=== PATIENT | female | born 1950 | race Caucasian/White ===

== ENCOUNTER 2024-09-16 03:06 | Inpatient (IN) ==
[2024-09-16] MEDS ORDERED: GLUCOSE 10 TAB/TUBE PO PRN (05:13)
[2024-09-16] MEDS ORDERED: DEXTROSE 50% 50 ML SYRINGE IV PRN (05:13)
[2024-09-16] MEDS ORDERED: PROMETHAZINE 6.25 MG/50.25 ML BAG IV PRN (05:13)
[2024-09-16] MEDS ORDERED: GLUCOSE 40% GEL 15 GM TUBE PO PRN (05:13)
[2024-09-16] MEDS ORDERED: GLUCAGON FOR INJ 1 MG VIAL SQ PRN (05:13)
[2024-09-16] MEDS ORDERED: CARBOHYDRATES FOR HYPOGLYCEMIA PO PRN (05:13)
[2024-09-16] MEDS ORDERED: Patient's ALLERGY Info needs ENTERED STA (05:14)
[2024-09-16] MEDS: INSULIN ASPART PER UNIT CHARGE SC SCH (06:26)
[2024-09-16] MEDS ORDERED: PANTOPRAZOLE BOLUS/DRIP IV STA (06:43)
--- NOTE | 2024-09-16 07:11 | History & Physical Report ---
Date of Service September 16, 2024 Assessment & Plan (1) Severe sepsis: Plan: SIRS plus ARF on CKD plus lactic acidosis Possible sources: Community-acquired pneumonia Complicated UTI UGIB History GERD New onset anemia secondary to above AMS secondary to illness, episodic lethargy during exam hypertension, BP stable hyperlipidemia, on statin Rx DM2 on oral medications, well-controlled as of recent hemoglobin A1c of 7 last May 2024 hypothyroidism, euthyroid as of recent outpatient TSH GERD, mood disorder. Medical telemetry Follow cultures obtained from [facility] ER Cefepime for complicated UTI, CAP; Doxycycline for atypical coverage Check venous blood gas, repeat PRP and lactic acid levels Nephrology consult Re: ARF on CKD IV PPI, GI consult for UGIB N.p.o. in anticipation of endoscopy Anemia workup, follow H&H, transfuse PRBC if hemoglobin less than 7 and or for symptomatic anemia CT head headache, AMS CT soft tissue neck RE sore throat CT abdomen pelvis re: abdominal pain, GI bleed, kidney dysfunction ISS BG goal 1 10-1 40 DVT prophylaxis. SCDs re: GI bleed Full code Text document was generated using Gyst voice recognition software. It may contain grammatical or spelling errors. Kindly contact undersigned for clarification of any documentation item in question. ADDENDUM : (7:15 AM) vbg pH less than 7, pCO2 17 ICU transfer for severe metabolic acidosis Bicarb drip as per mobile sales assistant (Dr. Faulkner's) recommendations. Admission and Anticipated Discharge Date Admission Date: September 16, 2024 History of Present Illness Chief Complaint: Renal failure Primary Care Provider: Dr. Meyer History obtained from patient and records. Medical history significant for hypertension, hyperlipidemia, DM2 on oral medications, hypothyroidism, CRI (baseline creatinine 1.3), GERD, mood disorder. Patient not feeling well for about a week. Junky cough symptoms productive of yellow sputum. Patient denies chest pain. Sore throat with headache symptoms. Denies aspiration. was sick as well. Poor appetite later followed by watery diarrhea. Subsequent achy abdominal pain with coffee-ground emesis and melena noted yesterday. Denies inordinate Patient seen at [facility] ER yesterday. Abnormal labs noted: WBC, 19, hemoglobin noted to be 10, serum creatinine 9.5, potassium 5.2, anion gap 39, lactic acid 8 COVID and flu swabs were negative. Chest x-ray showed left lung patchy opacification. UA WBC esterase positive, nitrate negative Blood cultures obtained. Patient given ceftriaxone at the ER for possible pneumonia/UTI as per ED provider.. Patient also received Lokelma for hyperkalemia. Repeat serum creatinine after multiple fluid boluses was 8.8 as per ED provider. Patient transferred to [facility] for Nephrology services. Medical History as above Surgical History : Knee surgery, shoulder surgery, BTL Family History : Heart disease, DM Personal/Social history : non-smoker, occasional EtOH intake Allergies Allergy/AdvReac Type Severity Reaction Status Date / Time Sulfa (Sulfonamide Allergy Unknown Unknown Verified 09/16/24 05:57 Antibiotics) Home Medications Medication Instructions Recorded Confirmed Type atorvastatin 20 mg tablet 20 mg DAILY 09/16/24 09/16/24 History hydrochlorothiazide 12.5 mg tablet 12.5 mg DAILY 09/16/24 09/16/24 History metformin 1,000 mg tablet 1,000 mg DAILY 09/16/24 09/16/24 History paroxetine HCl 10 mg tablet 10 mg PO DAILY 09/16/24 09/16/24 History pregabalin 100 mg capsule 100 mg AMHS 09/16/24 09/16/24 History venlafaxine 150 mg 150 mg PO DAILY 09/16/24 09/16/24 History capsule,extended release 24 hr Past Med/Surg History Problem List (Updated 09/16/24 @ 08:23 by Vj Celis MD) Severe sepsis Sepsis Ulnar neuropathy at elbow of right upper extremity Carpal tunnel syndrome on both sides Social History Smoking Status: Never smoker Second Hand Exposure: No; Do You Dip or Chew Tobacco: No; Hx Alcohol Use: No Hx Substance Use: No Beliefs That Will Affect Care: None Current Living Situation: Spouse Other Information That Helps Us Care for You: No Feels Safe at Home: Yes Safety Concerns: Feels Safe At This Time Assistive Devices: Other Assistive Devices Comment: reading glasses Review of Systems Review of Systems: As per HPI, all other systems reviewed and negative Physical Exam Physical Exam: GENERAL: Ill-appearing, lethargic, mild dysarthria, no respiratory distress SKIN: Pallor, cool HEENT: Pale palpebral conjunctivae, no ptosis, dry buccal mucosa NECK : Supple, no tenderness CHEST : Decreased breath sounds, no tenderness HEART : RRR, no obvious murmurs ABDOMEN: Some distention, minimal central abdominal tenderness EXTREMITIES : No LE swelling/tenderness, no other conspicuous deformities noted NEUROLOGIC : Lethargic, no facial asymmetry, mild dysarthria, gait and stance not assessed Results & Data Results & Data Vital Signs (Past 12 Hours) Vital Signs Temp Resp BP Pulse Ox O2 Del Method 34.3 C L 22 138/69 97 Room Air 09/16/24 05:37 09/16/24 05:37 09/16/24 05:37 09/16/24 05:37 09/16/24 05:37 Laboratory Results Laboratory Results POC Glucose 173 mg/dl (70-99) H 09/16/24 06:08 Diagnostic Findings [facility] ER 09/15, 1044 PM WBC 19.38, hemoglobin 10, hematocrit 33, platelets 540 Serum sodium 137, potassium 5.2, chloride 92, CO2 8.9, BUN 63, creatinine 9.57, glucose 96, anion gap 39.3, lactic acid 8 09/16, 1:46 AM Serum sodium 139, potassium 5.5, chloride 100, CO2 6.2, BUN 62, creatinine 8.89, anion gap 38.3, lactic acid 6.9
[2024-09-16] MEDS: SODIUM CHLORIDE 0.9% 1,000 ML IV ONE (07:16)
[2024-09-16] MEDS: PANTOprazole 80 MG in DEXTROSE 5% 100 ML IV ONE (07:17)
[2024-09-16 07:24] LABS: Oxygen Saturation VBG 72.5 %; PCO2 VBG 17 mmHg (38-50); PO2 VBG 52 mmHg; pH VBG < 7.00 (7.36-7.41)
--- NOTE | 2024-09-16 07:25 | Nephrology Consultation ---
Date of Consultation September 16, 2024 Assessment & Plan (1) Lactic acidosis: life threatening anion gap metabolic acidosis tachypneic as she tries to compensate and at risk for tiring out/potential intubation critical lactic acidosis w/ anion gap 32 and bicarbonate 3, pH <7, and lactate 6.8 on presentation; minimal improvement with IV fluids and quite tachypneic x hours and now hypoxic -urgent dialysis needed; risks/benefits/alternatives reviewed w/ pt and consent obtained >> plan 3 hr tx on lowest available bic, 2K bath w/ no UF >>will not be able to undergo any proposed urology procedure until this is optimized -may well need repeat dialysis treatment tomorrow > will follow Care coordinated multiple times today with Dr Celis, Dr Brooks, Dr Burton. I spent 25 minutes updating the family > explaining patient's current clinical status including acidemia, severe sepsis, stone. Critical care time 100 minutes from [id number]. (2) Acute renal failure: Stage 3 nonoliguric CARMEN multifactorial in the setting of obstructive uropathy, complicated UTI and possibly bacteremia, +/- metformin use -emergent dialysis as above -bmp daily for now -continue to avoid IV contrast as able (3) Severe sepsis: complicated UTI in setting of impacted R stone, possible bacteremia as well/ blood cultures pending; also possible community acquired pneumonia component -f/u pending cultures OSH -continue coverage w/ cefepime for UTI/CAP; doxy for atypicals -needs source control (4) Acute anemia: hgb 10 at OSH on 09/15; 8.8 here on arrival 09/16 and 8.4 later this am. -recheck later; dilution may have a role, though other cell lines not much changed (5) Stone in renal pelvis: urology consultation recommended; nothing to do until acidemia improved (6) CKD (chronic kidney disease) stage 3, GFR 30-59 ml/min: underlying CKD3A, possibly progressive >> baseline creatinine had been 1 x years (GFR 58) as of 07/2023 but was 1.3 (GFR 46) April 2024; historically nonalbuminuric. -will call her baseline creatinine 1.3; monitor for recovery History of Present Illness Reason for Consultation: CARMEN on ? CKD Requesting Physician: Dr Schaefer, Dr Celis Attending Physician: Dai Schaefer MD History of Present Illness 73 y/o F whom I'm asked to see for CARMEN on ? CKD was transferred here this AM from [facility] for nephrology care. PMH includes DM on metformin, HTN, hypothyroid (by report but on no meds), HL, depression. Also w/ CKD3A, ? progressive >> baseline creatinine had been 1 x years (GFR 58) as of 07/2023 but was 1.3 (GFR 46) April 2024; historically nonalbuminuric. Has had knee and shoulder surgery as well as BL tubal ligation. She presented to OSH on 09/15 2300 w/ "bile black" emesis that had started 09/14; she endorsed 10 days of sore throat, cough and diarrhea prior to presentation; she and her both had flu like symptoms around election day. CXR notable for BL hilar vascular congestion, patchy L mid lung opacity and suspected small L sided pleural effusion. Her presenting creatinine was 9.6, BUN 63, K 5.2, C02 6 (sic), AG 39. Lactic acid was 8; transaminases wnl. WBC 19K, hgb 10; plts 540. UA remarkable for turbid urine 1010 sa w/ moderate blood, 15 ketones, large LE, 1900 (sic) WBC, many bacteria. Blood and urine cultures were obtained; swabs for influenza and COVID19 were negative. She had a dose of ceftriaxone, lokelma and at least 1 L NS. Transfer was arranged here for mgt of lactic acidosis, severe renal failure, uti, ? community acquired pneumonia. On arrival here, her temp was 33.9 rectal, TSH wnl, pH on VBG under 7/ too low to calculate. lactate 6.8; CK 71. WBC were up to 40K w/ ANC of 34 and large number of immature granulocytes w/ toxic vacuolization; hgb to 8.4, plts 561. I reviewed her care w/ Dr Celis who had already arranged ICU admission. I suggested 2 hours of a bicarb gtt and then repeat labs which showed bicarb up to 4, pH now at 7.0, K 5.5, creat 8.9. She has made at least 300 mL urine since arrival here. No chest pain or palpitations; no abdominal pain; no further n/v; no wheeze or current cough; she is tachypneic but not particularly short of breath. Tells me she's "a little" tired. No rash, no WEAVER, no F, no neck stiffness. no dark tarry stools. Imaging was obtained after I saw her and is as below. Her and daughter came in to the ICU as I was completing this consultation > I reviewed her status with them and got a bit more history >> no metformin since 09/05; no NSAID use. Allergies Allergy/AdvReac Type Severity Reaction Status Date / Time Sulfa (Sulfonamide Allergy Unknown Unknown Verified 09/16/24 05:57 Antibiotics) Home Medications Medication Instructions Recorded Confirmed Type atorvastatin 20 mg tablet 20 mg DAILY 09/16/24 09/16/24 History hydrochlorothiazide 12.5 mg tablet 12.5 mg DAILY 09/16/24 09/16/24 History metformin 1,000 mg tablet 1,000 mg DAILY 09/16/24 09/16/24 History paroxetine HCl 10 mg tablet 10 mg PO DAILY 09/16/24 09/16/24 History pregabalin 100 mg capsule 100 mg AMHS 09/16/24 09/16/24 History venlafaxine 150 mg 150 mg PO DAILY 09/16/24 09/16/24 History capsule,extended release 24 hr Patient History Medical History (Updated 09/16/24 @ 14:15 by Janett Faulkner MD, PhD) Hypothyroidism HTN (hypertension) Diabetes Family History (Updated 09/16/24 @ 13:46 by Janett Faulkner MD, PhD) Other Diabetes Heart disease Social History Smoking Status: Never smoker Second Hand Exposure: No; Do You Dip or Chew Tobacco: No; Hx Alcohol Use: No Hx Substance Use: No Beliefs That Will Affect Care: None Current Living Situation: Spouse Other Information That Helps Us Care for You: No Feels Safe at Home: Yes Safety Concerns: Feels Safe At This Time Assistive Devices: Other Assistive Devices Comment: reading glasses Review of Systems 2 Review of Systems: All systems reviewed & are unremarkable except as noted in HPI & below Physical Exam 2 Constitutional: well developed, well nourished, + acute distress (mild d/t breathing), + ill appearing, average body habitus, + altered mental status (slight) and cooperative Eyes: EOM intact bilaterally ENMT: Mouth: + dry oral mucous membranes Neck: no nuchal rigidity Respiratory: + respiratory distress, + labored breath ing and + tachypneic; no cough, + not able to speak in complete sentence, expiratory phase not prolonged and no audible wheezes Auscultation: + diminished lung sounds and + crackles (bibasilar) Cardiovascular: Rate/Rhythm: regular rhythm and + tachycardic (low 100s) E xtremities: no edema Gastrointestinal (Abdomen): Inspection/Auscultation: normal bowel sounds P ercussion/Palpation: abdomen soft; abdomen nontender Musculoskeletal: Extremities: strength 5/5 throughout Skin: no rashes, warm and dry (bone dry) Neurologic: cheney but with effort, limited but appropriate speech > hard to understand at times ? d/t very dry mouth, generalized weakness Psychiatric: Orientation: oriented to person, oriented to place and cooperative Results & Data Vital Signs (Past 12 Hours) Vital Signs Temp Pulse Resp BP Pulse Ox O2 Del Method 09/16/24 07:15 33.9 C L 09/16/24 05:47 34.3 C L 91 H 22 138/69 97 Room Air 09/16/24 05:37 34.3 C L 22 138/69 97 Room Air Laboratory Results 09/16/24 11:42 09/16/24 11:[address] a/p (images personally reviewed; agree w/ report) -moderate R hydronephrosis w/ obstructing 1.8 cm calculus of the ureteropelvic junction -small BL pleural effusions R > L w/ bibasilar mucous plugging, intralobular septal thickening and patchy groundglass and consolidative opacities suggestive of PNA versus aspiriation -hepatic steatosis and small hiatal hernia CXR (images personally reviewed; agree w/ report) -pulmonary vascular congestion R>L, trace pleural effusions Head/neck-soft tissue CT w/o acute process
[2024-09-16] MEDS: IPRATROPIUM BROMIDE NEB SOLN 0.02% 0.5MG/2.5ML VIAL INH STA (07:29)
[2024-09-16] MEDS: LEVALBUTEROL 1.25 MG/3 ML NEB NEB STA (07:29)
[2024-09-16 07:39] LABS: BUN Creatinine Ratio 7.5 (10-20); Calcium 7.6 mg/dl (8.6-10.3); Creatinine Clr Calc Pharmacy 5.8 ml/min; Potassium 5.8 mmol/L (3.5-5.1)
--- NOTE | 2024-09-16 07:42 | Critical Care Consultation ---
Date of Consultation September 16, 2024 Assessment & Plan (1) Severe sepsis: (2) Acute renal failure: (3) Depression: (4) Diabetes: (5) HTN (hypertension): (6) Hypothyroidism: (7) Lactic acidosis: (8) Acute anemia: (9) Stone in renal pelvis: (10) CKD (chronic kidney disease) stage 3, GFR 30-59 ml/min: Plan Reason critically ill: direct admit with acute on chronic renal failure with severe metabolic acidosis requiring emergent hemodialysis. Neuro: Fluctuation in mental status, CT head negative. Cardiac: - Shock, likely septic with hemodynamic instability, currently requiring pressors - continue Levophed drip to maintain MAP>65, also started Albumin 5% x250mL Resp: - Persistent tachypnea since admission, likely respiratory compensation to offset metabolic acidosis - risk for respiratory fatigue and subsequent need for intubation. Monitor respiratory status, support as needed, hopeful that this will improve with dialysis. GI: - NPO due to persistent tachypnea - ?upper GI bleed - GI consulted, intervention deferred for time being, consider EGD at later date Renal: - Acute on chronic renal failure: severe metabolic acidosis w/ anion gap 32 and bicarbonate 3, pH <7, and lactate 6.8 on presentation, minimal change with IV fluids + bicarb - Nephrology consulted, emergent dialysis performed today - continue bicarb drip - Recheck AM labs - Avoid nephrotoxic agents : - UA from outside hospital consistent with UTI - follow outside hospital cultures - CT A/P with right sided hydronephrosis secondary to stone at [facility] - urology consulted for when metabolic abnormalities better managed - Follow I/[facility] Endo: - Home metformin held - BG checks ACHS, sliding scale insulin Heme: - Hemoglobin with slight downtrend, continue to monitor particularly due to concern for possible GI bleed ID: Severe sepsis - urinary vs respiratory source - continue coverage for both with Cefepime + Doxy, follow outside hospital cultures. Lines/Access: peripheral IV, temporary dialysis catheter DVT ppx: chemical prophylaxis deferred d/t concern for possible GI bleed Supervising Physician Co-Signing Physician Notes Dr. Blackman was resident physician during care of patient. I separately evaluated patient for cunha portions of the history and the exam. I was present during the critical portion of medical decision making, and I discussed the case with the resident. I generally agree with the findings and plan. Patient with metabolic acidosis and acute kidney injury presumptively on chronic kidney disease. Patient consented for temporary hemodialysis catheter as well as blood should be required. Placed temporary HD catheter, hemodynamically reassuring, waiting nephrology evaluation I have personally spent 50 minutes of critical care time in the direct management of this patient. This is a life/limb threatening event. This includes time spent evaluating patient, direct bedside care, chart review, placing orders, interpretation of diagnostic studies, discussion with consultants, patient, and/or family members regarding treatment decisions, as well as other required patient management activities. This time is exclusive of all separately billable procedures, and teaching time and separate from and in addition to any other critical care service time. History of Present Illness Attending Physician: Dai Schaefer MD History of Present Illness 73 year old female with PMHx significant for HTN, depression, hypothyroidism, diabetes presented as a direct admit due to acute renal failure. Patient presented to outside hospital due to 1 week history of diarrhea, one day of vomiting with concern for hematemesis. Notes associated weakness, denies chest pain, fever/chills. Allergies Allergy/AdvReac Type Severity Reaction Status Date / Time Sulfa (Sulfonamide Allergy Unknown Unknown Verified 09/16/24 05:57 Antibiotics) Home Medications Medication Instructions Recorded Confirmed Type atorvastatin 20 mg tablet 20 mg DAILY 09/16/24 09/16/24 History hydrochlorothiazide 12.5 mg tablet 12.5 mg DAILY 09/16/24 09/16/24 History metformin 1,000 mg tablet 1,000 mg DAILY 09/16/24 09/16/24 History paroxetine HCl 10 mg tablet 10 mg PO DAILY 09/16/24 09/16/24 History pregabalin 100 mg capsule 100 mg AMHS 09/16/24 09/16/24 History venlafaxine 150 mg 150 mg PO DAILY 09/16/24 09/16/24 History capsule,extended release 24 hr Patient History Medical History Hypothyroidism HTN (hypertension) Diabetes Family History Other Diabetes Heart disease Social History Smoking Status: Never smoker Second Hand Exposure: No; Do You Dip or Chew Tobacco: No; Hx Alcohol Use: No Hx Substance Use: No Beliefs That Will Affect Care: None Current Living Situation: Spouse Other Information That Helps Us Care for You: No Feels Safe at Home: Yes Safety Concerns: Feels Safe At This Time Assistive Devices: Other Assistive Devices Comment: reading glasses Review of Systems Review of Systems: as per HPI Physical Exam Constitutional: cooperative and + lethargic Respiratory: normal respiratory effort and + tachypneic Skin: no rashes, warm and dry Neurologic: awake and + confused (intermittently); no focal motor deficits Psychiatric: A+Ox3, euthymic affect Results & Data Results & Data Vital Signs (Past 12 Hours) Vital Signs Temp Pulse Resp BP Pulse Ox O2 Del Method 09/16/24 07:29 87 20 93 Room Air 09/16/24 07:15 33.9 C L 09/16/24 05:47 34.3 C L 91 H 22 138/69 97 Room Air 09/16/24 05:37 34.3 C L 22 138/69 97 Room Air Laboratory Results Abnormal lab results 09/16/24 09/16/24 Range/Units 06:08 06:49 WBC 40.43 H* (4.8-10.8) K/ul RBC 3.44 L (4.20-5.40) M/uL Hgb 8.8 L (12.0-16.0) g/dl Hct 31.9 L (37.0-47.0) % MCHC 27.6 L (32.0-36.0) g/dL RDW Std Deviation 59.0 H (36.4-46.3) fL RDW Coeff of [place] 17.4 H (11.5-14.5) % Plt Count 561 H (130-400) K/uL Reticulocyte % (Auto) 2.15 H (0.50-2.00) % Neut # (Auto) 34.08 H (1.40-6.50) K/uL [place] # (Auto) 1.28 H (0.11-0.59) K/uL Baso # (Auto) 0.24 H (0.00-0.20) K/uL Immature Gran # (Auto) 2.88 H (0.01-0.20) K/uL VBG pH < 7.00 L (7.36-7.41) VBG pCO2 17 L (38-50) mmHg Potassium 5.8 H (3.5-5.1) mmol/L Carbon Dioxide 3 L* (21-32) mmol/L Anion Gap 32 H (3-11) BUN 62 H (6-23) mg/dl Creatinine 8.31 H* (0.6-1.2) mg/dl BUN/Creatinine Ratio 7.5 L (10-20) Glucose 191 H (70-99(Fasting)) mg/dl POC Glucose 173 H (70-99) mg/dl Lactate 6.8 H* (0.4-2.0) mmol/L Calcium 7.6 L (8.6-10.3) mg/dl Iron 20 L (35-150) mcg/dl Resident Activity Tracking Resident Involvement: Resident Care Provided Care Provided: Adult Hospital Medicine
[2024-09-16 07:44] LABS: Hematocrit (blood only) 31.9 % (37.0-47.0); Hemoglobin 8.8 g/dl (12.0-16.0); Mean Corpuscular Hemoglobin 25.6 pg (25.0-34.0); Mean Corpuscular Hgb Conc 27.6 g/dL (32.0-36.0); Mean Corpuscular Volume 92.7 fL (80.0-100.0); Mean Platelet Volume 10.6 fL (9.4-12.4); Nucleated RBC # (auto) 0.02 K/uL (0.00-0.12); Platelet Count 561 K/uL (130-400); RDW Coefficient of Variation 17.4 % (11.5-14.5); Red Blood Count 3.44 M/uL (4.20-5.40); White Blood Count 40.43 K/ul (4.8-10.8)
[2024-09-16] MEDS: DOXYCYCLINE HYCLATE 100 MG in DEXTROSE 5% MINI-B 100 ML IV STA (07:51)
[2024-09-16] MEDS: PANTOprazole 40 MG in DEXTROSE 5% MINI-B 100 ML IV SCH (07:51)
[2024-09-16] MEDS: PARoxetine HCL 10 MG TAB PO SCH (07:52)
[2024-09-16] MEDS: ATORVASTATIN 20 MG TAB PO SCH (07:52)
[2024-09-16] MEDS: VENLAFAXINE HCL XR 37.5 MG CAPXR PO SCH (07:52)
[2024-09-16 07:55] LABS: Basophils # (auto) 0.24 K/uL (0.00-0.20); Basophils % (auto) 0.6 %; Eosinophils # (auto) 0.04 K/uL (0.00-0.50); Eosinophils % (auto) 0.1 %; Immature Granulocytes # (auto) 2.88 K/uL (0.01-0.20); Immature Granulocytes % (auto) 7.1 %; Lymphocytes # (auto) 1.91 K/uL (1.20-3.40); Lymphocytes % (auto) 4.7 %; Monocytes # (auto) 1.28 K/uL (0.11-0.59); Monocytes % (auto) 3.2 %; Neutrophils # (auto) 34.08 K/uL (1.40-6.50); Neutrophils % (auto) 84.3 %; Polychromasia 1+; Reticulocyte % 2.15 % (0.50-2.00); Toxic Vacuolation 1+
--- NOTE | 2024-09-16 07:59 | Communication Note ---
Date of Service: September 16, 2024 Case discussed w/ Dr Celis and EHR reviewed as well. I am covering another hospital and have not examined the patient yet but will do so this AM. May well need urgent dialysis but would give short trial of supportive measures. Suggest D5W w/ 150 mEq sodium bicarbonate at as aggressive a rate as pt will tolerate x 2 hrs then repeat BMP and blood gas and lactate. Critical care following as well; peoplesoft hcm consultant updated.
[2024-09-16 08:05] LABS: Folate (Folic Acid),Ser orPlas > 22.30 ng/ml (>5.38)
[2024-09-16] MEDS ORDERED: STAT IV/IM STA (08:05)
[2024-09-16 08:06] LABS: Vitamin B12 614 pg/ml (180-914)
[2024-09-16 08:09] LABS: Ferritin 123.7 ng/ml (8-388); Thyroid Stimulating Hormone 0.807 uIu/ml (0.300-4.500)
[2024-09-16] MEDS: CALCIUM GLUCONATE 1,000 MG/60 ML BAG IV STA (08:50)
[2024-09-16] MEDS: SODIUM BICARB 8.4% INJ 50 MEQ/50 ML SYR IV ONE ×2 (08:50→13:02)
[2024-09-16] MEDS: SODIUM BICARBONATE 8.4% 150 MEQ in DEXTROSE 5% 1,000 ML IV SCH (08:50)
--- NOTE | 2024-09-16 08:59 | Communication Note ---
Date of Service: September 16, 2024 patient was seen later in the day in the ICU Patient awake and knew she was at [facility] Was having dialysis with nursing at bedside. Appreciate recs of Jailor service, nephrology and Urology. For full plan of care, please see the History and Physical from the same date of service.
[2024-09-16] MEDS: CEFEPIME 1000MG 1,000 MG/10 ML SYR IV ONE (09:52)
--- NOTE | 2024-09-16 09:54 | Gastrointestinal Consultation ---
Date of Consultation September 16, 2024 Assessment & Plan (1) Hematemesis: She has had hematemesis that fortunately has stopped. She has not manifested melena yet. She could have bled from any of a number of causes all of which are the routine UGI causes for bleedimg--ulcer disease, esophagitis, gastritis, AVM's malignancy etc. I do think she needs EGD at some point but not with her current medical condition. I will follow her and step in for EGD when it is felt appropriate either due to her current condition or when she improves enough that endoscopy won't harm her. History of Present Illness Reason for Consultation: gi bleed Attending Physician: Dai Schaefer MD History of Present Illness 73 year old female who says that she has been feeling weak. Yesterday she was really ill and during that time she vomited a few times and it was "coffee ground" looking fluid. She has not had abdominal pain prior to getting here to the hospital. She denies NSAID usage. She says she does not take blood thinners. She reports no black stools since she vomited but reports having had a bowel movement just not sure where. She has never had an EGD but she has had colonoscopy in the remote past. She currently has a WBC of 40K and creatinine of 8.3 with a metabolic acidosis. Allergies Allergy/AdvReac Type Severity Reaction Status Date / Time Sulfa (Sulfonamide Allergy Unknown Unknown Verified 09/16/24 05:57 Antibiotics) Home Medications Medication Instructions Recorded Confirmed Type atorvastatin 20 mg tablet 20 mg DAILY 09/16/24 09/16/24 History hydrochlorothiazide 12.5 mg tablet 12.5 mg DAILY 09/16/24 09/16/24 History metformin 1,000 mg tablet 1,000 mg DAILY 09/16/24 09/16/24 History paroxetine HCl 10 mg tablet 10 mg PO DAILY 09/16/24 09/16/24 History pregabalin 100 mg capsule 100 mg AMHS 09/16/24 09/16/24 History venlafaxine 150 mg 150 mg PO DAILY 09/16/24 09/16/24 History capsule,extended release 24 hr Patient History Social History Smoking Status: Never smoker Second Hand Exposure: No; Do You Dip or Chew Tobacco: No; Hx Alcohol Use: No Hx Substance Use: No Beliefs That Will Affect Care: None Current Living Situation: Spouse Other Information That Helps Us Care for You: No Feels Safe at Home: Yes Safety Concerns: Feels Safe At This Time Assistive Devices: Other Assistive Devices Comment: reading glasses Review of Systems Review of Systems: unable due to repiratory difficulty Physical Exam Constitutional: + ill appearing and average body habitus Neck: trachea midline, no thyromegaly Respiratory: normal respiratory effort, lungs clear to auscultation Cardiovascular: RRR, no murmur, no edema Gastrointestinal (Abdomen): normal bowel sounds, soft, nontender, no hepatosplenomegaly Results & Data Vital Signs (Past 12 Hours) Vital Signs Temp Pulse Resp BP Pulse Ox O2 Del Method 09/16/24 07:29 87 20 93 Room Air 09/16/24 07:15 33.9 C L 09/16/24 05:47 34.3 C L 91 H 22 138/69 97 Room Air 09/16/24 05:37 34.3 C L 22 138/69 97 Room Air Laboratory Results 09/16/24 09/16/24 09/16/24 Range/Units Unknown 07:35 06:49 WBC 40.43 H* (4.8-10.8) K/ul RBC 3.44 L (4.20-5.40) M/uL Hgb 8.8 L (12.0-16.0) g/dl Hct 31.9 L (37.0-47.0) % MCV 92.7 (80.0-100.0) fL MCH 25.6 (25.0-34.0) pg MCHC 27.6 L (32.0-36.0) g/dL RDW Std Deviation 59.0 H (36.4-46.3) fL RDW Coeff of [place] 17.4 H (11.5-14.5) % Plt Count 561 H (130-400) K/uL MPV 10.6 (9.4-12.4) fL Immature Gran % (Auto) 7.1 % Neut % (Auto) 84.3 % Lymph % (Auto) 4.7 % [place] % (Auto) 3.2 % Eos % (Auto) 0.1 % Baso % (Auto) 0.6 % Reticulocyte % (Auto) 2.15 H (0.50-2.00) % Neut # (Auto) 34.08 H (1.40-6.50) K/uL Lymph # (Auto) 1.91 (1.20-3.40) K/uL [place] # (Auto) 1.28 H (0.11-0.59) K/uL Eos # (Auto) 0.04 (0.00-0.50) K/uL Baso # (Auto) 0.24 H (0.00-0.20) K/uL Reticulocyte # 0.070 (0.020-0.100) 10^6/uL Immature Gran # (Auto) 2.88 H (0.01-0.20) K/uL Absolute Nucleated RBC 0.02 (0.00-0.12) K/uL Toxic Vacuolation 1+ Polychromasia 1+ VBG pH < 7.00 L (7.36-7.41) VBG pCO2 17 L (38-50) mmHg VBG pO2 52 mmHg VBG HCO3 TNP VBG O2 Saturation 72.5 % VBG Base Excess TNP Sodium 140 (136-145) mmol/L Potassium 5.8 H (3.5-5.1) mmol/L Chloride 105 (98-107) mmol/L Carbon Dioxide 3 L* (21-32) mmol/L Anion Gap 32 H (3-11) BUN 62 H (6-23) mg/dl Creatinine 8.31 H* (0.6-1.2) mg/dl Est Cr Clr Drug Dosing 5.8 ml/min eGFR 4.75 BUN/Creatinine Ratio 7.5 L (10-20) Glucose 191 H (70-99(Fasting)) mg/dl POC Glucose (70-99) mg/dl Lactate 6.8 H* (0.4-2.0) mmol/L Calcium 7.6 L (8.6-10.3) mg/dl Iron 20 L (35-150) mcg/dl Transferrin 216 (200-360) mg/dl Ferritin 123.7 (8-388) ng/ml Ammonia 72.0 (18-72) umol/L Total Creatine Kinase 65 (26-192) U/L Vitamin B12 614 (180-914) pg/ml Folate > 22.30 (>5.38) ng/ml TSH 0.807 (0.300-4.500) uIu/ml SARS-CoV-2 (PCR) NEGATIVE (Negative) Blood Type AB Positive Antibody Screen NEGATIVE 09/16/24 Range/Units 06:08 WBC (4.8-10.8) K/ul RBC (4.20-5.40) M/uL Hgb (12.0-16.0) g/dl Hct (37.0-47.0) % MCV (80.0-100.0) fL MCH (25.0-34.0) pg MCHC (32.0-36.0) g/dL RDW Std Deviation (36.4-46.3) fL RDW Coeff of [place] (11.5-14.5) % Plt Count (130-400) K/uL MPV (9.4-12.4) fL Immature Gran % (Auto) % Neut % (Auto) % Lymph % (Auto) % [place] % (Auto) % Eos % (Auto) % Baso % (Auto) % Reticulocyte % (Auto) (0.50-2.00) % Neut # (Auto) (1.40-6.50) K/uL Lymph # (Auto) (1.20-3.40) K/uL [place] # (Auto) (0.11-0.59) K/uL Eos # (Auto) (0.00-0.50) K/uL Baso # (Auto) (0.00-0.20) K/uL Reticulocyte # (0.020-0.100) 10^6/uL Immature Gran # (Auto) (0.01-0.20) K/uL Absolute Nucleated RBC (0.00-0.12) K/uL Toxic Vacuolation Polychromasia VBG pH (7.36-7.41) VBG pCO2 (38-50) mmHg VBG pO2 mmHg VBG HCO3 VBG O2 Saturation % VBG Base Excess Sodium (136-145) mmol/L Potassium (3.5-5.1) mmol/L Chloride (98-107) mmol/L Carbon Dioxide (21-32) mmol/L Anion Gap (3-11) BUN (6-23) mg/dl Creatinine (0.6-1.2) mg/dl Est Cr Clr Drug Dosing ml/min eGFR BUN/Creatinine Ratio (10-20) Glucose (70-99(Fasting)) mg/dl POC Glucose 173 H (70-99) mg/dl Lactate (0.4-2.0) mmol/L Calcium (8.6-10.3) mg/dl Iron (35-150) mcg/dl Transferrin (200-360) mg/dl Ferritin (8-388) ng/ml Ammonia (18-72) umol/L Total Creatine Kinase (26-192) U/L Vitamin B12 (180-914) pg/ml Folate (>5.38) ng/ml TSH (0.300-4.500) uIu/ml SARS-CoV-2 (PCR) (Negative) Blood Type Antibody Screen
--- NOTE | 2024-09-16 10:14 | Procedure Note ---
Procedure Note Date of Service September 16, 2024 Procedure date: Noted above Procedure: Temporary dialysis catheter Pre-procedure indication: Need for temporary dialysis Post-procedure Diagnosis: same as above Prior to Procedure: Informed Consent: The risks, benefits, indications, potential complications, a nd alternatives were explained to the patient and informed consent obtained. Attending Staff: Asaf Brooks DO Resident/APC: Not applicable Skin Prep: Chlorhexidine Anesthesia: 4 mL 1% lidocaine without epinephrine The identity of the patient was confirmed and a bedside time out was performed. Description of Procedure: After sterile prep and sterile drape utilizing standard sterile technique the superficial skin of the right internal jugular area was anesthetized. The target vessel was identified and entered with an 18- gauge needle. Dark venous blood return was noted. A guidewire was inserted through the needle and into the vessel. The needle was withdrawn and a skin jessy was made. A tissue dilator was advanced via Seldinger technique and removed. A double lumen catheter was inserted via Seldinger technique and the guidewire removed. All ports bonnie and flushed easily. A Biopatch was placed, and the catheter was secured via nylon suture. A sterile dressing was then applied. Complications: None Estimated blood loss: Trace Patient tolerated the procedure well. Procedure Date: Noted Above Procedure: Procedural Ultrasound Indication: Central venous access Attending: Asaf Brooks DO Resident/Physician Coremaker Apprentice: Not applicable Artery visualized: Yes Vein visualized: Yes Compressible Vein: Yes Vein patent: Yes Guidewire or Short Catheter seen in vein prior to dilation: Yes Line confirmed in Vein with ultrasound: Yes Lung Sliding on side of attempt (if applicable): NA If no lung sliding or not obtained has CXR been ordered: Yes Impression: Successful central venous access placement Images obtained are saved for permanent record [facility] [place] Procedure Codes (Charges) Tubes, Drains, and Vasc Access Procedure 1: Tubes, Drains, and Vasc Access: [id number] Insertion Of Non-tunneled Catheter Age 5 Yrs> Procedure 2: Tubes, Drains, and Vasc Access: [id number] Ultrasound Guidance For Vascular Coding CPT Codes Tubes, Drains, and Vasc Access - Tubes, Drains, and Vasc Access: [id number] Insertion Of Non-tunneled Catheter Age 5 Yrs> ([id number]) Tubes, Drains, and Vasc Access - Tubes, Drains, and Vasc Access: [id number] Ultrasound Guidance For Vascular ([id number]) Additional Codes Date of Service (PG.SURGERY)
--- NOTE | 2024-09-16 10:44 | XRay Report ---
XR chest 1V portable HISTORY: 73 years-old Female line status post placement of a right IJ central venous catheter COMPARISON: None TECHNIQUE: AP view of the chest FINDINGS: Cardiac silhouette is enlarged. Status post placement of a right IJ central venous catheter with dist al tip projected over the expected location of the right atrium. Pulmonary vascular congestion. No pneumothorax. Probable trace pleural effusions with mild bibasilar and left midlung densities. Bones appear grossly intact. IMPRESSION: 1. Status post placement of a right IJ central venous catheter with distal tip projected over the exp ected location of the right atrium. 2. No pneumothorax. 3. Cardiomegaly with pulmonary vascular congestion. 4. Trace pleural effusions with mild bibasilar opacities which may represent atelectasis versus pneum onitis. ACT 112: Negative or not required by law. The above report was generated using voice recognition software. It may contain grammatical, syntax o r spelling errors. Electronically signed by: Amari Ramey M.D. 09/16/2024 10:43 AM
--- OUTSIDE RECORDS SUMMARY | 2024-09-16 11:05 | External Medical Summary | Summary of Care ---
Author Name Unknown Organization [facility] Address [address] [place] [address] Phone [phone] Care Team Providers Care Help Desk Supervisor Name Role Phone Timmy Meyer MD Primary Care Provider [phone] Reason for Visit * Reason Onset Date Comments Medication Refill 07/24/2024 Encounter Details Date Type Department Care Team (Late st Contact Info) Description 07/24/[address] [facility] [address] [place] [address] Timmy Meyer MD [address] [place] [id number] Chronic insomnia Allergies Active Allergy Reactions Criticality Noted Date Comments Roy-2 Inhibitors (Sulfonamide) 05/13 Hives and swelling Sulfa Antibiotics 11/18/2021 documented as of this encounter (statuses as of 07/26/2024) Medications Medication Sig Dispensed Refills Start Date End Date Status Neomycin-Polymyxin -HC 3.5-47793-4 Otic Solution Administer 4 Drops into ears in the morning and 4 Drops at noon and 4 Drops before bedtime. To affected ear, for 10 days.. 10 mL 2 10/12/2023 Active PARoxetine HCl 10 MG Oral Tablet (pAXil) TAKE 1 TABLET IN THE MORNING 90 Tablet 3 10/26/2023 Active Lisinopril 20 MG Oral Tablet (Prinivil) TAKE 1 TABLET IN THE MORNING 90 Tablet 2 12/23/2023 Active hydroCHLOROthiazid e 12.5 MG Oral Tablet TAKE ONE TABLET BY MOUTH EVERY MORNING 90 Tablet 1 02/17/2024 Active PreserVision AREDS 2+Multi Vit Oral Capsule Take by mouth. Active Centrum Minis Women 50+ Oral Tablet Take by mouth. Active Levothyroxine Sodium 88 MCG Oral Tablet (Levoxyl) Take 1 Tablet by mouth in the morning. 90 Tablet 3 04/11/2024 Active Atorvastatin Calcium 20 MG Oral Tablet (Lipitor)Indicatio ns:Dyslipidemia TAKE 1 TABLET IN THE MORNING 90 Tablet 1 05/02/2024 Active metFORMIN HCl 1000 MG Oral Tablet (Glucophage) Take 1 Tablet by mouth every morning. 90 Tablet 1 05/11/2024 Active Venlafaxine HCl ER 150 MG Oral Capsule Extended Release 24 Hour (Effexor XR) TAKE 1 CAPSULE IN THE MORNING AND 1 CAPSULE IN THE EVENING 180 Capsule 2 05/29/2024 Active Omeprazole 40 MG Oral Capsule Delayed Release (PriLOSEC) TAKE 1 CAPSULE IN THE MORNING 90 Capsule 1 06/21/2024 Active Zolpidem Tartrate 10 MG Oral Tablet (Ambien)Indication s:Chronic insomnia Take 1 Tablet by mouth at bedtime. 90 Tablet 07/18/2024 Active Pregabalin 100 MG Oral Capsule (Lyrica)Indication s:Post herpetic neuralgia Take 1 Capsule by mouth in the morning and 1 Capsule before bedtime. 180 Capsule 3 07/20/2024 Active Azelastine HCl 0.1 % Nasal Solution (Astelin) Administer 1 [place] into nostril in the morning and 1 [place] before bedtime. 30 mL 12 07/21/2024 Active documented as of this encounter (statuses as of 07/26/2024) Active Problems Problem Noted Date Diagnosed Date Post herpetic neuralgia 10/11/2023 Chronic kidney disease, stage 3a 12/14/2022 Overview: Per CKD protocol Type 2 diabetes mellitus wit h hemoglobin A1c goal of less than 8.0% 03/16/2022 Acquired hypothyroidism 11/18/2021 Dyslipidemia 11/18/2021 HTN, goal below 130/80 11/18/2021 Depression with anxiety 11/18/2021 Gastroesophageal reflux disease without esophagi tis 11/18/2021 Chronic insomnia 11/18/2021 documented as of this encounter (statuses as of 07/26/2024) Resolved Problems Problem Noted Date Diagnosed Date Resolved Date Encounter for examination fo r normal comparison and control in clinical research program 09/26/2018 06/03/2020 Overview: DO NOT DELETE [facility] SY Study: Project # [id number], Ornamental Painter: Delfino Sherman, PhD. SUMMARY: Goal: Establish test characteristics (sensitivity, specificity, PPV, NPV) of a circulating tumor DNA (ctDNA)-based test for cancer. Hypothesis: Circulating tumor DNA (ctDNA) and elevated protein biomarkers (together, the marker panel) can be detected in asymptomatic individuals with early cancer. Specific Aim 1: Determine the prevalence of a positive marker panel test in a prospective clinical cohort of 10,000 asymptomatic women ages 65 to 75 years. Specific Aim 2: Determine the sensitivity, specificity, positive predictive value (PPV) and negative predictive value (NPV) of a marker panel test to identify histologically proven cancers that develop within 5-years of the marker panel evaluation. CONTACTS: During normal business hours, contact study staff at ; after hours Ornamental Painter via the [facility] hospital waste disposal plant operator . Please contact study team before resolving/deleting from patients problem list. Study phone number: [phone]. Diagnosis changed due to Research Module. Go to Snapshot for study details. Encounter for examination fo r normal comparison and control in clinical research program 09/26/2018 07/02/2022 Overview: DO NOT DELETE - [facility] DETECT Study: Project # [id number], Ornamental Painter: Gennaro Scott, MS, MPH. SUMMARY: Goal: Establish test characteristics (sensitivity, specificity, PPV, NPV) of a circulating tumor DNA (ctDNA)-based test for cancer. - Hypothesis: Circulating tumor DNA (ctDNA) and elevated protein biomarkers (together, the marker panel) can be detected in asymptomatic individuals with early cancer. - Specific Aim 1: Determine the prevalence of a positive marker panel test in a prospective clinical cohort of 10,000 asymptomatic women ages 65 to 75 years. - Specific Aim 2: Determine the sensitivity, specificity, positive predictive value (PPV) and negative predictive value (NPV) of a marker panel test to identify histologically proven cancers that develop within 5-years of the marker panel evaluation. - CONTACTS: During normal business hours, contact study staff at ; after hours Ornamental Painter via the [facility] hospital waste disposal plant operator . - Please contact study team before resolving/deleting from patients problem list. Study phone number: [phone]. Diagnosis changed due to Research Module. Go to Snapshot for study details. documented as of this encounter (statuses as of 07/26/2024) Immunizations Name Administration Dates Next Due COVID-19, MRNA-LNP, 23-24, P F, 50 MCG/0.5 mL, 12 YRS AND ABOVE, IM (MODERNA-Spikevax) 10/05/2023 Pneumococcal Conjugate Vacc, 13 Valent (Prevnar) 08/16/2019 Pneumococcal Conjugate Vacci ne, 20-valent ([id number]) 02/26/2023 Pneumococcal Polysaccharide PPV23 (Pneumovax) 08/01/2017 Season Influenza, Quad, PF, Adjuvanted, 65+ Yrs, IM (FLUAD) 10/05/2023 Seasonal Influenza Virus Vac cine, Unspecified Formulation 07/24/2021,06/27/2020,08/16/2019,11/18,09/03/2017,09/05/2014 Seasonal Influenza, Trivalen t, (IIV3), with Preserv, (Fluzone) 08/01/2018 Varicella Zoster Vaccine (Adult) 06/27/2020,10/01 Zoster Vaccine Recombinant (Shingrix) 06/27/2020 ,04/12/2020 documented as of this encounter Social History Tobacco Use Types Packs/Day Years Used Date Smoking Tobacco: Never Smokeless Tobacco: Never Alcohol Use Standard Drinks/Week Comments Yes 2 (1 standard drink = 0.6 oz pur e alcohol) PHQ-2 Answer Date Recorded PHQ Adult Total Score 1 02/29/2024 Hunger Vital Sign Answer Date Recorded Within the past 12 months, y ou worried that your food would run out before you got the money to buy more. Never true 02/27/20 23 Within the past 12 months, t he food you bought just didn't last and you didn't have money to get more. Never true 02/26/2023 Utilities Answer Date Recorded Do you have trouble paying y our heating, water, or electric bill? (Adult - for ages 18 years and over) Not on file 04/18/2024 Is your family able to pay t he heat, water, or electric bill? (Household - for ages 0-17 years) Not on file 04/18/2024 Does your family have access to good internet? (Household - for ages 0-17 years) Not on file 04/18/2024 Social Connections Answer Date Recorded How often do you feel lonely or isolated from those around you? (Adult - for ages 18 years and over) Not on file 04/18/2024 Sex and Gender Information Value Date Recorded Sex Assigned at Female 02/24/2022 1:45 PM EDT Gender Identity Female 02/24/2022 1:45 PM EDT Sexual Orientation Straight 02/24/2022 1: 45 PM EDT Job Start Date Occupation Industry Not on file Not on file Not on file documented as of this encounter Miscellaneous Notes * Telephone Encounter - Syl Gan [facility] - 07/26/2024 9:29 AM EDTRefused Prescriptions: Disp Refills Ebwmoavp-Pzddnkdvj-LU 3.5-53479-3 Otic Mayuri*10 mL 2 Sig: Administer 4 Drops into ears in the morning and 4 Drops at noon and 4 Drops before bedtime. To affected ear, for 10 days..Refused By: SYL GAN for Refusal: Refill Not Appropriate Zolpidem Tartrate 10 MG Oral Tablet (Ambie*90 Tab*0 Sig: Take 1 Tablet by mouth at bedtime.Refused By:SYL GAN for Refusal: Refill Not Appropriate documented in this encounter Plan of Treatment Upcoming Encounters Date Type Department Care Team (Late st Contact Info) Description 10/23/2024 11:40 AM EST Office Visit Family [facility] [address] [place] [address] Timmy Meyer MD [address] [place] [address] 03/06/2025 11:00 AM EDT Nurse Only Ancillary [facility] [address] [place] [address] Kobi, Nurse Annual Wellness [facility] [address] [place] [address] Health Maintenance Due Date Last Done Comments Hepatitis C Screening 1970 DTap/Tdap Vaccines (1 - Tdap) 1971 Cologuard 1997 Fecal Occult Blood Test 1997 Sigmoidoscopy 1997 Zoster Vaccines (3 of 3) 08/22/2020 020, 06/27/2020, 04/12/2020, Additional history exists Diabetic Eye Exam 03/31/2024 03/31/2023, 06/22/2022 *BASELINE EKG FOR HTN 04/14/2024 Albumin/Creatinine Ratio 06/22/2024 06/22/2023, 06/0 06/2022 CKD HGB USE SMARTSET 70701 06/22/2024 06/22/2023, CKD PHOS USE SMARTSET [id number] 06/22/2024 06/22/2023 COVID-19 Vaccine ( season) 2024 10/05/2023, 10/04/2021, 01/07/2021, Additional history exists Influenza Vaccine (FLU shot) (#1) 2024 10/05/2023, 07/24/2021, 06/27/2020, Additional history exists Colonoscopy 09/20/2024 09/20/2014 Colorectal Cancer Screening 09/20/2024 GFR 10/12/2024 04/12/2024, 07/03, 06/22/2023, Additional history exists HbA1c 10/12/2024 04/12/2024, 06/02, 11/18/2022, Additional history exists Mammogram 12/03/2024 12/03/2023, 11/2022, 12/01/2021 Adult Wellness Visit 02/28/2025 02/29/2024, 02/26/2023, 02/24/2022 Depression Monitoring 02/28/2025 02/29/2024 Diabetic Foot Exam 02/28/2025 02/29/2024, 02/26/2023 TSH 04/12/2025 04/12/2024, 11/01, 11/18/2021 DXA Scan 01/12/2027 01/12/2022 Lipid Panel 04/12/2029 04/12/2024, 04/08/2022 Pneumococcal Vaccine: 65+ Years Completed 02/26/2023, 08/16/2019, 08/01/2017 HPV (Gardasil) Vaccine Aged Out No lo nger eligible based on patient's age to complete this topic Hepatitis B Vaccine Aged Out No longe r eligible based on patient's age to complete this topic MENINGOCOCCAL (MENACTRA/MENVEO) Aged Out No longer eligible based on patient's age to complete this topic documented as of this encounter Medical Devices Not on filedocumented as of this encounter Visit Diagnoses Diagnosis Chronic insomnia Insomnia, unspecified documented in this encounter Care Teams Help Desk Supervisor Relationship Specialty Start Date End Date Timmy Meyer MD [address] [place] [address] PCP - General Family Medicine 11/18/21 documented as of this encounter
--- OUTSIDE RECORDS SUMMARY | 2024-09-16 11:05 | External Medical Summary | Summary of Care ---
Author Name Unknown Organization [facility] Address [address] [place] [address] Phone [phone] Care Team Providers Care Senior Private Client Advisor Name Role Phone Timmy Meyer MD Primary Care Provider [phone] [phone] Reason for Visit * Reason Comments eRx-Medication Refill Encounter Details Date Type Department Care Team (Late st Contact Info) Description 07/01/2024 Refill Family Practice [facility] [address] [place] [address] Timmy Meyer MD [address] [place] [address] Post herpetic neuralgia Allergies Active Allergy Reactions Criticality Noted Date Comments Roy-2 Inhibitors (Sulfonamide) 05/13 Hives and swelling Sulfa Antibiotics 11/18/2021 documented as of this encounter (statuses as of 07/04/2024) Medications Medication Sig Dispensed Refills Start Date End Date Status Azelastine HCl 0.1 % Nasal Solution (Astelin) Administer 1 [place] into nostril in the morning and 1 [place] before bedtime. 30 mL 12 06/11/2023 Active Neomycin-Polymyxin -HC 3.5-45904-0 Otic Solution Administer 4 Drops into ears [...] 50+ Oral Tablet Take by mouth. Active Zolpidem Tartrate 10 MG Oral Tablet (Ambien)Indication s:Chronic insomnia Take 1 Tablet by mouth at bedtime. 90 Tablet 04/12/2024 Active Levothyroxine Sodium 88 MCG Oral Tablet (Levoxyl) Take 1 Tablet by mouth in the morning. 90 Tablet 3 04/11/2024 Active Atorvastatin Calcium 20 MG Oral Tablet (Lipitor)Indicatio ns:Dyslipidemia TAKE 1 TABLET IN THE MORNING 90 Tablet 1 05/02/2024 Active Pregabalin 100 MG Oral Capsule (Lyrica)Indication s:Post herpetic neuralgia Take 1 Capsule by mouth in the morning and 1 Capsule before bedtime. 180 Capsule 3 05/01/2024 Active metFORMIN HCl 1000 MG Oral Tablet [...] THE MORNING 90 Capsule 1 06/21/2024 Active documented as of this encounter (statuses as of 07/04/2024) Active Problems Problem Noted Date Diagnosed Date [...] as of this encounter (statuses as of 07/04/2024) Resolved Problems Problem Noted Date Diagnosed Date Resolved Date Encounter for examination fo r normal comparison and control in clinical research program 09/26/2018 06/03/2020 Overview: DO NOT DELETE [facility] DETECT Study: Project # [id number], Critical Care Registered Nurse: Delfino Sherman, PhD. SUMMARY: Goal: Establish test [...] contact study staff at ; after hours Critical Care Registered Nurse via the [facility] hospital hydraulic press in operator . Please contact study team before resolving/deleting from patients problem list. Study phone number: [phone]. Diagnosis changed due to Research Module. Go to Snapshot for study details. Encounter for examination fo r normal comparison and control in clinical research program 09/26/2018 07/02/2022 Overview: DO NOT DELETE - [facility] DETECT Study: Project # [id number], Critical Care Registered Nurse: Gennaro Scott, MS, MPH. SUMMARY: Goal: Establish [...] contact study staff at ; after hours Critical Care Registered Nurse via the [facility] [place] hospital hydraulic press in operator . - Please contact study team before resolving/deleting from patients problem list. Study phone number: [phone]. Diagnosis changed due to Research Module. Go to Snapshot for study details. documented as of this encounter (statuses as of 07/04/2024) Immunizations Name Administration Dates Next Due COVID-19, MRNA-LNP, 23-24, P F, 50 MCG/0.5 mL, 12 YRS AND ABOVE, IM (MODERNA-Spikevax) 10/05/2023 Pneumococcal Conjugate Vacc, 13 Valent (Prevnar) 08/16/2019 Pneumococcal Conjugate Vacci ne, 20-valent ([id number]) 02/26/2023 Pneumococcal Polysaccharide PPV23 (Pneumovax) 08/01/2017 Season [...] encounter Miscellaneous Notes * Telephone Encounter - Cheryl [facility] - 07/04/2024 12:37 PM EDT Refused Prescriptions: Disp Refills Pregabalin 75 MG Oral Capsule (Lyrica) 60 Cap*5 Sig: TAKE ONE CAPSULE BY MOUTH TWICE DAILYRefused By: CHERYL BRADLEYRetanner for Refusal: Refill Not AppropriateReason for Refusal Comment: 100 mg documented in this encounter Plan of Treatment Upcoming Encounters Date Type Department Care Team (Late st Contact Info) Description 10/23/2024 11:40 AM EST Office Visit Family Practice [facility] [address] [address] Timmy Meyer MD [address] [address] 03/06/2025 11:00 AM EDT Nurse Only Ancillary [facility] [address] [place] [address] [place], Nurse Annual Wellness [facility] [address] [place] [address] Health Maintenance Due Date Last Done Comments Hepatitis C Screening 1970 DTap/Tdap Vaccines (1 - Tdap) 1971 Cologuard 1997 Fecal Occult Blood Test 1997 Sigmoidoscopy 1997 Zoster Vaccines (3 of 3) 08/22/2020 020, 06/27/2020, 04/12/2020, Additional history exists Diabetic Eye Exam 03/31/2024 03/31/2023, 06/22/2022 *BASELINE EKG FOR HTN 04/14/2024 Albumin/Creatinine Ratio 06/22/2024 06/22/2023, 0606/2022 CKD HGB USE SMARTSET 17369 06/22/2024 06/22/2023, CKD PHOS USE SMARTSET 39871 06/22/2024 06/22/2023 COVID-19 Vaccine ( season) 2024 10/05/2023, 10/04/2021, 01/07/2021, Additional history exists Influenza Vaccine (FLU shot) (#1) 2024 10/05/2023, 07/24/2021, 06/27/2020, Additional history exists Colonoscopy 09/20/2024 09/20/2014 Colorectal Cancer Screening 09/20/2024 GFR 10/12/2024 04/12/2024, 07/03, 06/22/2023, Additional history exists HbA1c 10/12/2024 04/12/2024, 06/02, 11/18/2022, Additional history exists Mammogram 12/03/2024 12/03/2023, 02/0 11/2022, 12/01/2021 Adult Wellness Visit 02/28/2025 02/29/2024, [...] as of this encounter Visit Diagnoses Diagnosis Post herpetic neuralgia Herpes zoster with other nervous system complications documented in this encounter Care Teams Senior Private Client Advisor Relationship Specialty Start Date End Date Timmy Meyer MD [address] [place] [address] PCP - General Family Medicine 11/18/21 documented as of this encounter
--- OUTSIDE RECORDS SUMMARY | 2024-09-16 11:05 | External Medical Summary | Summary of Care ---
Author Name Unknown Organization [facility] Address [address] [place] [address] Phone [phone] Care Team Providers Care Dietary Supervisor Name Role Phone Timmy Meyer MD Primary Care Provider [phone] [phone] Encounter Details Date Type Department Care Team (Late st Contact Info) Description 07/20/2024 Refill Otolaryngology [facility] [address] [place] [address] Vicki Frost MD [address] [place] [address] Allergies Active Allergy Reactions Criticality Noted Date Comments Roy-2 Inhibitors (Sulfonamide) 05/13 Hives and swelling Sulfa Antibiotics 11/18/2021 documented as of this encounter (statuses as of 07/21/2024) Medications Medication Sig Dispensed Refills Start Date End Date Status Neomycin-Polymyx in-HC 3.5-37892-1 Otic Solution Administer 4 Drops into ears [...] THE MORNING 90 Tablet 2 12/23/2023 Active hydroCHLOROthiaz bart 12.5 MG Oral Tablet TAKE ONE TABLET BY MOUTH EVERY MORNING 90 Tablet 1 02/17/2024 Active PreserVision AREDS 2+Multi Vit Oral Capsule Take by mouth. Acti ve Centrum Minis Women 50+ Oral Tablet Take by mouth. Active Levothyroxine Sodium 88 MCG Oral Tablet (Levoxyl) Take 1 Tablet by mouth in the morning. 90 Tablet 3 04/11/2024 Active Atorvastatin Calcium 20 MG Oral Tablet (Lipitor)Indicat ions:Dyslipidemi a TAKE 1 TABLET IN THE MORNING 90 [...] Active Zolpidem Tartrate 10 MG Oral Tablet (Ambien)Indicati ons:Chronic insomnia Take 1 Tablet by mouth at bedtime. 90 Tablet 07/18/2024 Active Pregabalin 100 MG Oral Capsule (Lyrica)Indicati ons:Post herpetic neuralgia Take 1 Capsule by mouth in the morning and 1 Capsule before bedtime. 180 Capsule 3 07/20/2024 Active Azelastine HCl 0.1 % Nasal Solution (Astelin) Administer 1 [place] into nostril in the morning and 1 [place] before bedtime. 30 mL 12 07/21/2024 Active Azelastine HCl 0.1 % Nasal Solution (Astelin) Administer 1 [place] into nostril in the morning and 1 [place] before bedtime. 30 mL 12 06/11/2023 4 Discontinue d(Refill) documented as of this encounter (statuses as of 07/21/2024) Active Problems Problem Noted Date Diagnosed Date [...] as of this encounter (statuses as of 07/21/2024) Resolved Problems Problem Noted Date Diagnosed Date Resolved Date Encounter for examination fo r normal comparison and control in clinical research program 09/26/2018 06/03/2020 Overview: DO NOT DELETE [employer] DETECT Study: Project # [id number], Interactive Web Developer: Delfino Sherman, PhD. SUMMARY: Goal: Establish test [...] contact study staff at ; after hours Interactive Web Developer via the [facility] hospital seed cleaning machine operator . Please contact study team before resolving/deleting from patients problem list. Study phone number: [phone]. Diagnosis changed due to Research Module. Go to Snapshot for study details. Encounter for examination fo r normal comparison and control in clinical research program 09/26/2018 07/02/2022 Overview: DO NOT DELETE - [facility] DETECT Study: Project # [id number], Interactive Web Developer: Gennaro Scott, MS, MPH. SUMMARY: Goal: Establish [...] contact study staff at ; after hours Interactive Web Developer via the [facility] hospital seed cleaning machine operator . - Please contact study team before resolving/deleting from patients problem list. Study phone number: [phone]. Diagnosis changed due to Research Module. Go to Snapshot for study details. documented as of this encounter (statuses as of 07/21/2024) Immunizations Name Administration Dates Next Due COVID-19, MRNA-LNP, 23-24, P F, 50 MCG/0.5 mL, 12 YRS AND ABOVE, IM (MODERNA-Spikevax) 10/05/2023 Pneumococcal Conjugate Vacc, 13 Valent (Prevnar) 08/16/2019 Pneumococcal Conjugate Vacci ne, 20-valent ([id number]) 02/26/2023 Pneumococcal Polysaccharide PPV23 (Pneumovax) 08/01/2017 Season [...] encounter Miscellaneous Notes * Telephone Encounter - Vicki Frost MD - 07/21/2024 10:17 AM EDT Signed Prescriptions: Disp Refills Azelastine HCl 0.1 % Nasal Solution (Astel*30 mL 12 Sig: Administer 1 [place] into nostril in the morning and 1 [place] before bedtime.Authorizing Provider: VICKI FROST * Telephone Encounter - Jelly Fink LPN - 07/20/2024 2:01 PM EDT Refill request for Azelastine spray documented in this encounter Plan of Treatment Upcoming Encounters Date Type Department Care Team (Jaren roberts Contact Info) Description 10/23/2024 11:40 AM EST Office Visit Family Practice [facility] [address] [place] [address] Timmy Meyer MD [address] [place] [address] 03/06/2025 11:00 AM EDT Nurse Only Ancillary [facility] [address] [place] [address] [facility], Nurse Annual Wellness [facility] [address] [facility] [place] [address] Health Maintenance Due Date Last Done Comments Hepatitis C Screening 1970 DTap/Tdap Vaccines (1 - Tdap) 1971 Cologuard 1997 Fecal Occult Blood Test 1997 Sigmoidoscopy 1997 Zoster Vaccines (3 of 3) 08/22/2020 020, 06/27/2020, 04/12/2020, Additional history exists Diabetic Eye Exam 03/31/2024 03/31/2023, 06/22/2022 *BASELINE EKG FOR HTN 04/14/2024 Albumin/Creatinine Ratio 06/22/2024 06/22/2023, 06/0 06/2022 CKD HGB USE SMARTSET 76470 06/22/2024 06/22/2023, CKD PHOS USE SMARTSET 47647 06/22/2024 06/22/2023 COVID-19 Vaccine ( season) 2024 [...] Not on filedocumented as of this encounter Care Teams Dietary Supervisor Relationship Specialty Start Date End Date Timmy Meyer MD [address] [address] PCP - General Family Medicine 11/18/21 documented as of this encounter
--- OUTSIDE RECORDS SUMMARY | 2024-09-16 11:05 | External Medical Summary | Summary of Care ---
Author Name Unknown Organization [facility] Address [address] [place] [address] Phone [phone] Care Team Providers Care Electronic Controls Repairer Supervisor Name Role Phone Praveen Ramirez MD Primary Care Provider [phone] [phone] Reason for Visit * Reason Comments eRx-Medication Refill Encounter Details Date Type Department Care Team (Late st Contact Info) Description 05/29/[address] [facility] [address] [place] [address] Praveen Ramirez MD [address] [place] [address] Allergies Active Allergy Reactions Criticality Noted Date Comments Roy-2 Inhibitors 05/13/2006 Hives and swelling Sulfa Antibiotics 11/18/2021 documented as of this encounter (statuses as of 05/29/2024) Medications Medication Sig Dispensed Refills Start Date End Date Status Azelastine HCl 0.1 % Nasal Solution (Astelin) Administer 1 [place] into nostril in the morning and 1 [place] before bedtime. 30 mL 12 06/11/2023 Active Omeprazole 40 MG Oral Capsule Delayed Release (PriLOSEC) TAKE 1 CAPSULE IN THE MORNING 90 Capsule 3 06/29/2023 Active Neomycin-Polymyx in-HC 3.5-11664-8 Otic Solution Administer 4 Drops into ears [...] 05/02/2024 Active Pregabalin 100 MG Oral Capsule (Lyrica)Indicati [...] THE EVENING 180 Capsule 2 05/29/2024 Active Venlafaxine HCl ER 150 MG Oral Capsule Extended Release 24 Hour (Effexor XR) Take 1 Capsule by mouth in the morning and 1 Capsule in the evening. Takes 2 daily. 180 Capsule 3 06/02/2023 4 Discontinued documented as of this encounter (statuses as of 05/29/2024) Active Problems Problem Noted Date Diagnosed Date [...] as of this encounter (statuses as of 05/29/2024) Resolved Problems Problem Noted Date Diagnosed Date Resolved Date Encounter for examination fo r normal comparison and control in clinical research program 09/26/2018 06/03/2020 Overview: DO NOT DELETE [employer] DETECT Study: Project # [id number], Stamp Presser: Delfino Sherman, PhD. SUMMARY: Goal: Establish test [...] contact study staff at ; after hours Stamp Presser via the [facility] hospital cooker operator . Please contact study team before resolving/deleting from patients problem list. Study phone number: [phone]. Diagnosis changed due to Research Module. Go to Snapshot for study details. Encounter for examination fo r normal comparison and control in clinical research program 09/26/2018 07/02/2022 Overview: DO NOT DELETE - [employer] DETECT Study: Project # [id number], Stamp Presser: Gennaro Scott, MS, MPH. SUMMARY: Goal: Establish [...] contact study staff at ; after hours Stamp Presser via the [facility] hospital cooker operator . - Please contact study team before resolving/deleting from patients problem list. Study phone number: [phone]. Diagnosis changed due to Research Module. Go to Snapshot for study details. documented as of this encounter (statuses as of 05/29/2024) Immunizations Name Administration Dates Next Due COVID-19, MRNA-LNP, 23-24, P F, 50 MCG/0.5 mL, 12 YRS AND ABOVE, IM (MODERNA-Spikevax) 10/05/2023 Pneumococcal Conjugate Vacc, 13 Valent (Prevnar) 08/16/2019 Pneumococcal Conjugate Vacci ne, 20-valent ([id number]) 02/26/2023 Pneumococcal Polysaccharide PPV23 (Pneumovax) 08/01/2017 Season Influenza, Quad, PF, Adjuvanted, 65+ Yrs, IM (FLUAD) 10/05/2023 Seasonal Influenza Virus Vac cine, Unspecified Formulation 07/24/2021,06/27/2020,08/16/2019,11/18,09/03/2017,09/05/2014 Seasonal Influenza, Split, I IV3, With Preserve, Inj 08/01/2018 Varicella Zoster Vaccine (Adult) 06/27/2020,10/01 Zoster [...] encounter Miscellaneous Notes * Telephone Encounter - Adolph Hoffman RPh - 05/29/2024 3:38 PM EDT Signed Prescriptions: Disp Refills Venlafaxine HCl ER 150 MG Oral Capsule Ext*180 Ca*2 Sig: TAKE 1 CAPSULE IN THE MORNING AND 1 CAPSULE IN THE EVENINGAuthorizing Provider: PRAVEEN RAMIREZ User: ADOLPH HOFFMAN documented in this encounter Plan of Treatment Upcoming Encounters Date Type Department Care Team (Late st Contact Info) Description 10/23/2024 11:40 AM EST Office Visit Family Practice [facility] [address] [address] Praveen Ramirez MD [address] [address] 03/06/2025 11:00 AM EDT [facility] [address] [facility] [place] [address] [place], Nurse Annual Wellness [facility] [place] [address] Health Maintenance Due Date Last Done Comments Hepatitis C Screening 1970 DTaP,Tdap,and Td Vaccines (1 - Tdap) 1971 Cologuard 1997 Fecal Occult Blood Test 1997 Sigmoidoscopy 1997 Zoster Vaccines (3 of 3) 08/22/2020 020, 06/27/2020, 04/12/2020, Additional history exists COVID-19 Vaccine (2022- season) 2024 10/05/2023, 10/04/2021, 01/07/2021, Additional history exists Diabetic Eye Exam 03/31/2024 03/31/2023, 06/22/2022 *BASELINE EKG FOR HTN 04/14/2024 Albumin/Creatinine Ratio 06/22/2024 06/22/2023, 06/2022 CKD HGB USE SMARTSET 85380 06/22/2024 06/22/2023, CKD PHOS USE SMARTSET 03780 06/22/2024 06/22/2023 Influenza Vaccine (FLU shot) (#1) 2024 10/05/2023, 07/24/2021, 06/27/2020, Additional history exists Colonoscopy 09/20/2024 09/20/2014 Colorectal Cancer Screening 09/20/2024 GFR 10/12/2024 04/12/2024, 07/03, 06/22/2023, Additional history exists HbA1c 10/12/2024 04/12/2024, 06/02, 11/18/2022, Additional history exists Mammogram 12/03/2024 12/03/2023, 020 11/2022, 12/01/2021 Depression Monitoring 02/28/2025 02/29/2024 Diabetic Foot Exam [...] filedocumented as of this encounter Care Teams Electronic Controls Repairer Supervisor Relationship Specialty Start Date End Date Praveen Ramirez MD [address] [address] PCP - General Family Medicine 11/18/21 documented as of this encounter
--- OUTSIDE RECORDS SUMMARY | 2024-09-16 11:05 | External Medical Summary | Summary of Care ---
Author Name Unknown Organization [facility] Address [address] [place] [address] Phone [phone] Care Team Providers Care Toddler Nanny Name Role Phone Praveen Ramirez MD Primary Care Provider [phone] [phone] Reason for Visit * Reason Comments eRx-Medication Refill Encounter Details Date Type Department Care Team (Late st Contact Info) Description 06/20/[address] [facility] [address] [place] [address] Praveen Ramirez MD [address] [place] [address] Allergies Active Allergy Reactions Criticality Noted Date Comments Roy-2 Inhibitors 05/13/2006 Hives and swelling Sulfa Antibiotics 11/18/2021 documented as of this encounter (statuses as of 06/21/2024) Medications Medication Sig Dispensed Refills Start Date End Date Status Azelastine HCl 0.1 % Nasal Solution (Astelin) Administer 1 [place] into nostril in the morning and 1 [place] before bedtime. 30 mL 12 06/11/2023 Active Neomycin-Polymyx in-HC 3.5-42057-8 Otic Solution Administer 4 Drops into ears [...] THE MORNING 90 Capsule 1 06/21/2024 Active Omeprazole 40 MG Oral Capsule Delayed Release (PriLOSEC) TAKE 1 CAPSULE IN THE MORNING 90 Capsule 3 06/29/2023 4 Discontinued documented as of this encounter (statuses as of 06/21/2024) Active Problems Problem Noted Date Diagnosed Date [...] as of this encounter (statuses as of 06/21/2024) Resolved Problems Problem Noted Date Diagnosed Date Resolved Date Encounter for examination fo r normal comparison and control in clinical research program 09/26/2018 06/03/2020 Overview: DO NOT DELETE [facility] Study: Project # [id number], Water Supervisor: Delfino Sherman, PhD. SUMMARY: Goal: Establish test [...] contact study staff at ; after hours Water Supervisor via the [facility] towboat operator . Please contact study team before resolving/deleting from patients problem list. Study phone number: [phone]. Diagnosis changed due to Research Module. Go to Snapshot for study details. Encounter for examination fo r normal comparison and control in clinical research program 09/26/2018 07/02/2022 Overview: DO NOT DELETE - [employer] DETECT Study: Project # [id number], Water Supervisor: Gennaro Scott, MS, MPH. SUMMARY: Goal: Establish [...] contact study staff at ; after hours Water Supervisor via the [facility] towboat operator . - Please contact study team before resolving/deleting from patients problem list. Study phone number: [phone]. Diagnosis changed due to Research Module. Go to Snapshot for study details. documented as of this encounter (statuses as of 06/21/2024) Immunizations Name Administration Dates Next Due COVID-19, MRNA-LNP, 23-24, P F, 50 MCG/0.5 mL, 12 YRS AND ABOVE, IM (MODERNA-Spikevax) 10/05/2023 Pneumococcal Conjugate Vacc, 13 Valent (Prevnar) 08/16/2019 Pneumococcal Conjugate Vacci ne, 20-valent ([id number]) 02/26/2023 Pneumococcal Polysaccharide PPV23 (Pneumovax) 08/01/2017 Season [...] encounter Miscellaneous Notes * Telephone Encounter - Maria Ines Howard RP - 06/21/2024 6:23 AM EDTSigned Prescriptions: Disp Refills Omeprazole 40 MG Oral Capsule Delayed Rele*90 Cap*1 Sig: TAKE 1 CAPSULE IN THE MORNINGAuthorizing Provider: PRAVEEN RAMIREZ User: MARIA INES HOWARD---- documented in this encounter Plan of Treatment Upcoming Encounters Date Type Department Care Team (Late st Contact Info) Description 10/23/2024 11:40 AM EST Office Visit Family Practice [facility] [address] [address] Praveen Ramirez MD [address] [address] 03/06/2025 11:00 AM EDT Nurse Only Ancillary [facility] [address] [place] [address] [place], Nurse Annual Wellness [facility] [address] [place] [address] Health Maintenance Due Date Last Done Comments [...] 06/22/2023, 06/0 06/2022 CKD HGB USE SMARTSET 70057 06/22/2024 06/22/2023, CKD PHOS USE SMARTSET 08559 06/22/2024 06/22/2023 Influenza Vaccine (FLU shot) (#1) [...] filedocumented as of this encounter Care Teams Toddler Nanny Relationship Specialty Start Date End Date Praveen Ramirez MD [address] [place] [address] PCP - General Family Medicine 11/18/21 documented as of this encounter
--- OUTSIDE RECORDS SUMMARY | 2024-09-16 11:05 | External Medical Summary | Summary of Care ---
Author Name Unknown Organization [facility] Address [address] [facility] [place] [address] Phone [phone] Care Team Providers Care Sheet Tester Name Role Phone Timmy Meyer MD Primary Care Provider [phone] [phone] Encounter Details Date Type Department Care Team (Late st Contact Info) Description 05/13/2024 Orders Only PATIENT PORTAL DO NOT DELETE THIS DEPT USED BY [place] [id number] Allergies Active Allergy Reactions Criticality Noted Date Comments Roy-2 Inhibitors 05/13/2006 Hives and swelling Sulfa Antibiotics 11/18/2021 documented as of this encounter (statuses as of 05/13/2024) Medications Medication Sig Dispensed Refills Start Date End Date Status Venlafaxine HCl ER 150 MG Oral Capsule Extended Release 24 Hour (Effexor XR) Take 1 Capsule by mouth in the morning and 1 Capsule in the evening. Takes 2 daily. 180 Capsule 3 06/02/2023 Active Azelastine HCl 0.1 % Nasal Solution (Astelin) Administer 1 [place] into nostril in the morning and 1 [place] before bedtime. 30 mL 12 06/11/2023 Active Omeprazole 40 MG Oral Capsule Delayed Release (PriLOSEC) TAKE 1 CAPSULE IN THE MORNING 90 Capsule 3 06/29/2023 Active Neomycin-Polymyxin -HC 3.5-61532-8 Otic Solution Administer 4 Drops into ears [...] every morning. 90 Tablet 1 05/11/2024 Active documented as of this encounter (statuses as of 05/13/2024) Active Problems Problem Noted Date Diagnosed Date [...] as of this encounter (statuses as of 05/13/2024) Resolved Problems Problem Noted Date Diagnosed Date Resolved Date Encounter for examination fo r normal comparison and control in clinical research program 09/26/2018 06/03/2020 Overview: DO NOT DELETE [facility] DETECT Study: Project # [id number], Cad Developer: Delfino Sherman, PhD. SUMMARY: Goal: Establish [...] contact study staff at ; after hours Cad Developer via the [facility] counter control operator . Please contact study team before resolving/deleting from patients problem list. Study phone number: [phone]. Diagnosis changed due to Research Module. Go to Snapshot for study details. Encounter for examination fo r normal comparison and control in clinical research program 09/26/2018 07/02/2022 Overview: DO NOT DELETE - [facility] DETECT Study: Project # [id number], Cad Developer: Gennaro Scott, MS, MPH. SUMMARY: Goal: [...] contact study staff at ; after hours Cad Developer via the [facility] counter control operator . - Please contact study team before resolving/deleting from patients problem list. Study phone number: [phone]. Diagnosis changed due to Research Module. Go to Snapshot for study details. documented as of this encounter (statuses as of 05/13/2024) Immunizations Name Administration Dates Next Due COVID-19, MRNA-LNP, 23-24, P F, 50 MCG/0.5 mL, 12 YRS AND ABOVE, IM (MODERNA-Spikevax) 10/05/2023 Pneumococcal Conjugate Vacc, 13 Valent (Prevnar) 08/16/2019 Pneumococcal Conjugate Vacci ne, 20-valent ([id number]) 02/26/2023 Pneumococcal Polysaccharide PPV23 (Pneumovax) 08/01/2017 Season [...] on file documented as of this encounter Plan of Treatment Upcoming Encounters Date Type Department Care Team (Late st Contact Info) Description 10/23/2024 11:40 AM EST Office Visit Family Practice [facility] [address] [place] [address] Timmy Meyer MD [address] [employer] [place] [address] 03/06/2025 11:00 AM EDT Nurse Only Ancillary [facility] [address] [employer] [place] [address] [facility], Nurse Annual Wellness [facility] [address] [facility] [place] [address] Health Maintenance Due Date Last Done Comments Hepatitis C Screening 1970 DTaP,Tdap,and Td Vaccines (1 - Tdap) 1971 Cologuard 1997 Fecal Occult Blood Test 1997 Sigmoidoscopy 1997 Zoster Vaccines (3 of 3) 08/22/2020 020, 06/27/2020, 04/12/2020, Additional history exists COVID-19 Vaccine ( season) 2024 10/05/2023, 10/04/2021, 01/07/2021, Additional history exists Diabetic Eye Exam 03/31/2024 03/31/2023, 06/22/2022 *BASELINE EKG FOR HTN 04/14/2024 Albumin/Creatinine Ratio 06/22/2024 06/22/2023, 0606/2022 CKD HGB USE SMARTSET 60823 06/22/2024 06/22/2023, CKD PHOS USE SMARTSET 44877 06/22/2024 06/22/2023 Influenza Vaccine (FLU shot) (#1) 2024 10/05/2023, 07/24/2021, 06/27/2020, Additional history exists Colonoscopy 09/20/2024 09/20/2014 Colorectal Cancer Screening 09/20/2024 GFR 10/12/2024 04/12/2024, 07/03, 06/22/2023, Additional history exists HbA1c 10/12/2024 04/12/2024, 06/02, 11/18/2022, Additional history exists Mammogram 12/03/2024 12/03/2023, 11/2022, 12/01/2021 Depression Monitoring 02/28/2025 02/29/2024 Diabetic [...] filedocumented as of this encounter Care Teams Sheet Tester Relationship Specialty Start Date End Date Timmy Meyer MD [address] [place] [address] PCP - General Family Medicine 11/18/21 documented as of this encounter
--- OUTSIDE RECORDS SUMMARY | 2024-09-16 11:05 | External Medical Summary | Summary of Care ---
Author Name Unknown Organization [facility] Address [address] [place] [address] Phone [phone] Care Team Providers Care Plastic Tubing Insulation Supervisor Name Role Phone Praveen Ramirez MD Primary Care Provider [phone] Reason for Visit * Reason Onset Date Comments Medication Refill 07/17/2024 Encounter Details Date Type Department Care Team (Late st Contact Info) Description 07/17/2024 Refill Family Practice [facility] [address] [place] [address] Praveen Ramirez MD [address] [place] [id number] Chronic insomnia; Post herpetic neuralgia Allergies Active Allergy Reactions Criticality Noted Date Comments Roy-2 Inhibitors (Sulfonamide) 05/13 Hives and swelling Sulfa Antibiotics 11/18/2021 documented as of this encounter (statuses as of 07/18/2024) Medications Medication Sig Dispensed Refills Start Date End Date Status Azelastine HCl 0.1 % Nasal Solution (Astelin) Administer 1 [place] into nostril in the morning and 1 [place] before bedtime. 30 mL 12 06/11/2023 Active Neomycin-Polymyx in-HC 3.5-99625-4 Otic Solution Administer 4 Drops into ears [...] mouth at bedtime. 90 Tablet 07/18/2024 Active Zolpidem Tartrate 10 MG Oral Tablet (Ambien)Indicati ons:Chronic insomnia Take 1 Tablet by mouth at bedtime. 90 Tablet 04/12/2024 Discontinue d(Refill) documented as of this encounter (statuses as of 07/18/2024) Active Problems Problem Noted Date Diagnosed Date [...] as of this encounter (statuses as of 07/18/2024) Resolved Problems Problem Noted Date Diagnosed Date Resolved Date Encounter for examination fo r normal comparison and control in clinical research program 09/26/2018 06/03/2020 Overview: DO NOT DELETE [facility] DETECT Study: Project # [id number], Mold Maker Apprentice: Delfino Sherman, PhD. SUMMARY: Goal: Establish test [...] contact study staff at ; after hours Mold Maker Apprentice via the [facility] hospital security control center operator . Please contact study team before resolving/deleting from patients problem list. Study phone number: [phone]. Diagnosis changed due to Research Module. Go to Snapshot for study details. Encounter for examination fo r normal comparison and control in clinical research program 09/26/2018 07/02/2022 Overview: DO NOT DELETE - [facility] DETECT Study: Project # [id number], Mold Maker Apprentice: Gennaro Scott, MS, MPH. SUMMARY: Goal: Establish [...] contact study staff at ; after hours Mold Maker Apprentice via the [facility] hospital security control center operator . - Please contact study team before resolving/deleting from patients problem list. Study phone number: [phone]. Diagnosis changed due to Research Module. Go to Snapshot for study details. documented as of this encounter (statuses as of 07/18/2024) Immunizations Name Administration Dates Next Due COVID-19, MRNA-LNP, 23-24, P F, 50 MCG/0.5 mL, 12 YRS AND ABOVE, IM (MODERNA-Spikevax) 10/05/2023 Pneumococcal Conjugate Vacc, 13 Valent (Prevnar) 08/16/2019 Pneumococcal Conjugate Vacci ne, 20-valent ([id number]) 02/26/2023 Pneumococcal Polysaccharide PPV23 (Pneumovax) 08/01/2017 Season [...] encounter Miscellaneous Notes * Telephone Encounter - Praveen Ramirez MD - 07/18/2024 1:23 PM EDTSigned Prescriptions: Disp Refills Zolpidem Tartrate 10 MG Oral Tablet (Ambie*90 Tab*0 Sig: Take 1 Tablet by mouth at bedtime. Authorizing Provider: PRAVEEN RAMIREZ Refused Prescriptions: Disp Refills Pregabalin 100 MG Oral Capsule (Lyrica) 180 Ca*3 Sig: Take 1 Capsule by mouth in the morning and 1 Capsule before bedtime. Refuse d By: VICKI HOLCOMB Reason for Refusal: Too soon * [facility] 10:16 AM EDTPending Prescriptions: Disp Refills Zolpidem Tartrate 10 MG Oral Tablet (Ambie*90 Tab*0 Sig: Take 1 Tablet by mouth at bedtime. Refused Prescriptions: Disp Refills Pregabalin 100 MG Oral Capsule (Lyrica) 180 Ca*3 Sig: Take 1 Capsule by mouth in the morning and 1 Capsule before bedtime. Refused By: VICKI HOLCOMB Reason for Refusal: Too soon * Telephone Encounter - Vicki Holcomb RP - 07/18/2024 10:14 AM EDT I have reviewed the patients controlled substance dispensing history in the Prescription Drug Monitoring Program in compliance with the [facility] regulations before prescribing a controlled substance. PDMP checked on 07/18/2024. Pending Prescriptions: Disp Refills Zolpidem Tartrate 10 MG Oral Tablet (Ambi*90 Tab*0 Sig: Take 1 Tablet by mouth at bedtime. Refused Prescriptions: Disp Refills Pregabalin 100 MG Oral Capsule (Lyrica) 180 Ca*3 Sig: Take 1 Capsule by mouth in the morning and 1 Capsule before bedtime. Refused By: VICIK HOLCOMB Reason for Refusal: Too soon Last Visit: 04/25/2024 (in office), Visit date not found (telemedicine) Next Visit: 10/23/2024 Date medication was last filled: 04/14/24 Date medication is due for refill: 07/12/24 Pharmacy: [facility] Is this request for a controlled substance? Yes and Urine Drug Screen Not completed Toxicology results: No results found for this or any previous visit. Please approve if appropriate. Thanks, Vicki Holcomb, PharmD Clinical Pharmacist [facility] [phone] 07/18/2024 10:15 AM documented in this encounter Plan of Treatment Upcoming Encounters Date Type Department Care Team (Late st Contact Info) Description 10/23/2024 11:40 AM EST Office Visit Family Practice [facility] [address] [place] [address] Praveen Ramirez MD [address] [place] [address] 03/06/2025 11:00 AM EDT Nurse Only Ancillary [facility] [address] [place] [address] [place], Nurse Annual Well[facility] [place] [address] Health Maintenance Due Date Last Done Comments Hepatitis C Screening 1970 DTap/Tdap Vaccines (1 - Tdap) 1971 Cologuard 1997 Fecal Occult Blood Test 1997 Sigmoidoscopy 1997 Zoster Vaccines (3 of 3) 08/22/2020 020, 06/27/2020, 04/12/2020, Additional history exists Diabetic Eye Exam 03/31/2024 03/31/2023, 06/22/2022 *BASELINE EKG FOR HTN 04/14/2024 Albumin/Creatinine Ratio 06/22/2024 06/22/2023, 06/0 06/2022 CKD HGB USE SMARTSET 92922 06/22/2024 06/22/2023, CKD PHOS USE SMARTSET 53124 06/22/2024 06/22/2023 COVID-19 Vaccine ( season) 2024 [...] Visit Diagnoses Diagnosis Chronic insomnia Insomnia, unspecified Post herpetic neuralgia Herpes zoster with other nervous system complications documented in this encounter Care Teams Plastic Tubing Insulation Supervisor Relationship Specialty Start Date End Date Praveen Ramirez MD [address] [place] [address] PCP - General Family Medicine 11/18/21 documented as of this encounter
--- OUTSIDE RECORDS SUMMARY | 2024-09-16 11:05 | External Medical Summary | Summary of Care ---
Author Name Unknown Organization [facility] Address [address] [place] [address] Phone [phone] Care Team Providers Care Shirt Operator Name Role Phone Timmy Meyer MD Primary Care Provider [phone] Reason for Visit * Reason Onset Date Comments Health Maintenance 06/20/2024 Encounter Details Date Type Department Care Team (Late st Contact Info) Description 06/20/2024 Telephone Family Practice [facility] [address] [place] [address] Timmy Meyer MD [address] [place] [id number] Health Maintenance Allergies Active Allergy Reactions Criticality Noted Date Comments Roy-2 Inhibitors 05/13/2006 Hives and swelling Sulfa Antibiotics 11/18/2021 documented as of this encounter (statuses as of 06/20/2024) Medications Medication Sig Dispensed Refills Start Date End Date Status Azelastine HCl 0.1 % Nasal Solution (Astelin) Administer 1 [place] into nostril in the morning and 1 [place] before bedtime. 30 mL 12 06/11/2023 Active Omeprazole 40 MG Oral Capsule Delayed Release (PriLOSEC) TAKE 1 CAPSULE IN THE MORNING 90 Capsule 3 06/29/2023 Active Neomycin-Polymyxin -HC 3.5-08406-9 Otic Solution Administer 4 Drops into ears [...] THE EVENING 180 Capsule 2 05/29/2024 Active documented as of this encounter (statuses as of 06/20/2024) Active Problems Problem Noted Date Diagnosed Date [...] as of this encounter (statuses as of 06/20/2024) Resolved Problems Problem Noted Date Diagnosed Date Resolved Date Encounter for examination fo r normal comparison and control in clinical research program 09/26/2018 06/03/2020 Overview: DO NOT DELETE [facility] DETECT Study: Project # [id number], Business Process Specialist: Delfino Sherman, PhD. SUMMARY: Goal: Establish test [...] contact study staff at ; after hours Business Process Specialist via the [facility] chemical production machine operator . Please contact study team before resolving/deleting from patients problem list. Study phone number: [phone]. Diagnosis changed due to Research Module. Go to Snapshot for study details. Encounter for examination fo r normal comparison and control in clinical research program 09/26/2018 07/02/2022 Overview: DO NOT DELETE - [facility] DETECT Study: Project # [id number], Business Process Specialist: Gennaro Scott, MS, MPH. SUMMARY: Goal: Establish [...] contact study staff at ; after hours Business Process Specialist via the [facility] chemical production machine operator . - Please contact study team before resolving/deleting from patients problem list. Study phone number: [phone]. Diagnosis changed due to Research Module. Go to Snapshot for study details. documented as of this encounter (statuses as of 06/20/2024) Immunizations Name Administration Dates Next Due COVID-19, MRNA-LNP, 23-24, P F, 50 MCG/0.5 mL, 12 YRS AND ABOVE, IM (MODERNA-Spikevax) 10/05/2023 Pneumococcal Conjugate Vacc, 13 Valent (Prevnar) 08/16/2019 Pneumococcal Conjugate Vacci ne, 20-valent ([id number]) 02/26/2023 Pneumococcal Polysaccharide PPV23 (Pneumovax) 08/01/2017 Season [...] encounter Miscellaneous Notes * Telephone Encounter - Karthik RubioTISH rao - 06/20/2024 11:46 AM EDT Care Gaps Comprehensive Care Outreach Last Office/Telemedicine Visit: 04/25/2024 (in office), Visit date not found (telemedicine) Next Office Visit: 10/23/2024 Hemoglobin AIC Results: Lab Results Component Value Date/Time HEMOGLOBIN A1C - [facility] 7.0 (H) 04/12/2024 12:04 PM HEMOGLOBIN A1C - [facility] 7.6 (H) 06/22/2023 01:45 PM HEMOGLOBIN A1C - [facility] 7.7 (H) 11/18/2022 10:27 AM BP Readings from Last 1 Encounters: 04/25/24 122/78 Reviewed Health Maintenance below: Health Maintenance Topic Date Due Hepatitis C Screening Never done DTaP,Tdap,and Td Vaccines (1 - Tdap) Never done Zoster Vaccines (3 of 3) 08/22/2020 COVID-19 Vaccine (5 - season) 2024 Diabetic Eye Exam 03/31/2024 *BASELINE EKG FOR HTN Never done Albumin/Creatinine Ratio 06/22/2024 CKD HGB USE SMARTSET 00461 06/22/2024 CKD PHOS USE SMARTSET 43398 06/22/2024 Colorectal Cancer Screening 09/20/2024 Influenza Vaccine (FLU shot) (1) 07/02/2024 HbA1c 10/12/2024 GFR 10/12/2024 Eye Labs Colon nov 10 year narinder gastro did last report recommended 5 Care Gap Outreach Action Taken: Left message and MyChart message sent documented in this encounter Plan of Treatment Upcoming Encounters Date Type Department Care Team (Late st Contact Info) Description 10/23/2024 11:40 AM EST Office Visit Family Practice [facility] [address] [facility] [place] [address] Timmy Meyer MD 132 [facility] [place] [address] 03/06/2025 11:00 AM EDT Nurse Only Ancillary [facility] [address] [facility] [place] [address] [facility], Nurse Annual Wellness [facility] [address] [facility] [place] [address] Health Maintenance Due Date Last Done Comments [...] 06/22/2024 06/22/2023, 0606/2022 CKD HGB USE SMARTSET 14047 06/22/2024 06/22/2023, CKD PHOS USE SMARTSET 82558 06/22/2024 06/22/2023 Influenza Vaccine (FLU shot) (#1) [...] filedocumented as of this encounter Care Teams Shirt Operator Relationship Specialty Start Date End Date Timmy Meyer MD [address] [place] [address] PCP - General Family Medicine 11/18/21 documented as of this encounter
--- OUTSIDE RECORDS SUMMARY | 2024-09-16 11:06 | External Medical Summary ---
Author Name Unknown Address Unknown Organization [id number]:LABORATORY [facility] - [address] [place] [address] Laboratory Report Ordering Provider Test Date Status VIRGIL LEARY 04/12/2024 12:04:42 Final Observation Date Value Abnormality Reference (Units ) Status MYCODE SPECIMEN-SST 04/12/2024 12:04:42 Freezing of extracted DNA, whole blood and/or serum. Final Performing Location LABORATORY [facility] - [address] [place] [address]
--- OUTSIDE RECORDS SUMMARY | 2024-09-16 11:06 | External Medical Summary ---
Author Name Unknown Address Unknown Organization K01:LABORATORY [facility] [place] - [address] [place] [address] Laboratory Report Ordering Provider Test Date Status ASHANTI ROJAS 04/12/2024 12:04:42 Final Observation Date Value Abnormality Reference (Units ) Status LDL, (direct) 04/12/2024 12:04:42 89 <=129 (mg/dL) Final LDL Cholesterol Reference Ra nges (mg/dL):
<70 Target level for high risk ASCVD patient
<100 Optimal for general population
100-129 Near optimal for general population
130-159 Borderline high
160-189 High
>=190 Very high Performing Location LABORATORY [facility] - [address] [place] [address]
--- OUTSIDE RECORDS SUMMARY | 2024-09-16 11:06 | External Medical Summary ---
Author Name Unknown Address Unknown Organization [id number]:[facility] [place] [address] [place] [address] Laboratory Report Ordering Provider Test Date Status CHRISTOPHER MORTON 04/12/2024 12:04:42 Final Observation Date Value Abnormality Reference (Units ) Status TSH 04/12/2024 12:04:42 0.29 0.27-4.20 (uIU/mL) Final Performing Location LABORATORY [facility] - [address] [place] [address]
--- OUTSIDE RECORDS SUMMARY | 2024-09-16 11:06 | External Medical Summary | Summary of Care ---
Author Name Unknown Organization [facility] Address [address] [place] [address] Phone [phone] Care Team Providers Care Shiatsu Therapist Name Role Phone Timmy Meyer MD Primary Care Provider [phone] Reason for Visit * Reason Comments Outpatient Testing Encounter Details Date Type Department Care Team (Late st Contact Info) Description 04/12/2024 12:20 PM EDT Laboratory Laboratory, [facility] [address] [place] [id number] [facility] [address] [place] [address] Dyslipidemia; Type 2 diabetes mellitus with hemoglobin A1c goal of less than 8.0% ([facility]); HTN, goal below 130/80; Acquired hypothyroidism; MyCode Research Other*[id number] Allergies Active Allergy Reactions Criticality Noted Date Comments Roy-2 Inhibitors 05/13/2006 Hives and swelling Sulfa Antibiotics 11/18/2021 documented as of this encounter (statuses as of 04/12/2024) Medications Medication Sig Dispensed Refills Start Date End Date Status metFORMIN HCl 1000 MG Oral Tablet (Glucophage) Take by mouth 1 Tablet 2 times a day with morning and evening meals . 360 Tablet 3 04/21/2022 Active Venlafaxine HCl ER 150 MG Oral Capsule Extended Release 24 Hour (Effexor XR) Take 1 Capsule by mouth in the morning and 1 Capsule in the evening. Takes 2 daily. 180 Capsule 3 06/02/2023 Active Azelastine HCl 0.1 % Nasal Solution (Astelin) Administer 1 [place] into nostril in the morning and 1 [place] before bedtime. 30 mL 12 06/11/2023 Active Omeprazole 40 MG Oral Capsule Delayed Release (PriLOSEC) TAKE 1 CAPSULE IN THE MORNING 90 Capsule 3 06/29/2023 Active Neomycin-Polymyxin -HC 3.5-23246-8 Otic Solution Administer 4 Drops into ears [...] THE MORNING 90 Tablet 2 12/23/2023 Active Atorvastatin Calcium 20 MG Oral Tablet (Lipitor)Indicatio ns:Dyslipidemia TAKE 1 TABLET IN THE MORNING 90 Tablet 02/01/2024 Active hydroCHLOROthiazid e 12.5 MG Oral Tablet [...] the morning. 90 Tablet 3 04/11/2024 Active documented as of this encounter (statuses as of 04/12/2024) Active Problems Problem Noted Date Diagnosed Date [...] as of this encounter (statuses as of 04/12/2024) Resolved Problems Problem Noted Date Diagnosed Date Resolved Date Encounter for examination fo r normal comparison and control in clinical research program 09/26/2018 06/03/2020 Overview: DO NOT DELETE [facility] DETECT Study: Project # [id number], Home Service Demonstrator: Delfino Sherman, PhD. SUMMARY: Goal: Establish test [...] contact study staff at ; after hours Home Service Demonstrator via the [facility] coal tower operator . Please contact study team before resolving/deleting from patients problem list. Study phone number: [phone]. Diagnosis changed due to Research Module. Go to Snapshot for study details. Encounter for examination fo r normal comparison and control in clinical research program 09/26/2018 07/02/2022 Overview: DO NOT DELETE - [facility] DETECT Study: Project # [id number], Home Service Demonstrator: Gennaro Scott, MS, MPH. SUMMARY: Goal: Establish [...] contact study staff at ; after hours Home Service Demonstrator via the [facility] coal tower operator . - Please contact study team before resolving/deleting from patients problem list. Study phone number: [phone]. Diagnosis changed due to Research Module. Go to Snapshot for study details. documented as of this encounter (statuses as of 04/12/2024) Immunizations Name Administration Dates Next Due COVID-19, MRNA-LNP, 23-24, P F, 50 MCG/0.5 mL, 12 YRS AND ABOVE, IM (MODERNA-Spikevax) 10/05/2023 Pneumococcal Conjugate Vacc, 13 Valent (Prevnar) 08/16/2019 Pneumococcal Conjugate Vacci ne, 20-valent ([id number]) 02/26/2023 Pneumococcal Polysaccharide PPV23 (Pneumovax) 08/01/2017 Season [...] money to get more. Never true 02/26/2023 Sex and Gender Information Value Date Recorded [...] Care Team (Late st Contact Info) Description 05/31/2024 11:20 AM EDT Telemedicine Neurology [address] [place] [address] Lashae Rojo, DO [address] [place] [id number] 10/23/2024 11:40 AM EST Office Visit Family Practice [facility] [address] [facility] [place] [address] Timmy Meyer MD [address] [facility] [place] [address] 03/06/2025 11:00 AM EDT Nurse Only Ancillary [facility] [address] [facility] [place] [address] [facility], Nurse Annual Wellness [facility] [address] [facility] [place] [address] Pending Results Name Type Priority Associated Diagnoses Date /Time LIPID PANEL WITH DIRECT LDL IF TG IS HIGH Lab Routine Dyslipidemia 04/12/2024 12:04 PM EDT HEMOGLOBIN A1C Lab Routine Type 2 diabetes mellitus with hemoglobin A1c goal of less than 8.0% ([facility]) 04/12/2024 12:04 PM EDT TSH WITH FREE T4 IF INDICATED Lab Routine Acquired hypothyroidism 04/12/2024 12:04 PM EDT MYCODE INITIAL ADULT Lab Routine MyCode Research Other*[id number] 04/12/2024 12:04 PM EDT MYCODE INITIAL ADULT-PINK Lab Routine MyCode Research Other*[id number] 04/12/2024 12:04 PM EDT MYCODE SST1 Lab Routine MyCode Research Other*[id number] 04/12/2024 12:04 PM EDT MYCODE SST2 Lab Routine MyCode Research Other*[id number] 04/12/2024 12:04 PM EDT Health Maintenance Due Date Last Done Comments Hepatitis C Screening 1970 DTaP,Tdap,and Td Vaccines (1 - Tdap) 1971 Cologuard 1997 Fecal Occult Blood Test 1997 Sigmoidoscopy 1997 Zoster Vaccines (3 of 3) 08/22/2020 020, 06/27/2020, 04/12/2020, Additional history exists TSH 11/18/2023 11/18/2022, 11/18/2021 HbA1c 12/23/2023 06/22/2023, 11/01, 11/18/2021 GFR 01/21/2024 04/12/2024, 07/03, 06/22/2023, Additional history exists COVID-19 Vaccine ( - 2022- season) 2024 10/05/2023, 10/04/2021, 01/07/2021, Additional history exists Diabetic Eye Exam 03/31/2024 03/31/2023, 06/22/2022 Albumin/Creatinine Ratio 06/22/2024 06/22/2023, 06/0 06/2022 CKD HGB USE SMARTSET 78517 06/22/2024 06/22/2023, CKD PHOS USE SMARTSET 42454 06/22/2024 06/22/2023 Colonoscopy 09/20/2024 09/20/2014 Colorectal Cancer Screening 09/20/2024 Mammogram 12/03/2024 12/03/2023, 02/0 11/2022, 12/01/2021 Depression Monitoring 02/28/2025 02/29/2024 Diabetic Foot Exam 02/28/2025 02/29/2024, 02/26/2023 DXA Scan 01/12/2027 01/12/2022 Lipid Panel 04/08/2027 04/08/2022 Pneumococcal Vaccine: 65+ Years Completed 02/26/2023, 08/16/2019, 08/01/2017 Influenza Vaccine (FLU shot) Completed 03/2023, 07/24/2021, 06/27/2020, Additional history exists GARDASIL-HPV IMMUNIZATION SERIES Aged Out No longer eligible based on patient's age to complete this topic Hepatitis B Aged Out No longer eligi ble based on patient's age to complete this topic MENINGOCOCCAL (MENACTRA/MENVEO) Aged Out No longer eligible based on patient's age to complete this topic documented as of this encounter Medical Devices Not on filedocumented as of this encounter Procedures Procedure Name Priority Date/Time Associated Diagnosis Comments BASIC METABOLIC PANEL Routine 04/12/2024 12:04 PM EDT HTN, goal below 130/80 documented in this encounter Results * (ABNORMAL) BASIC METABOLIC PANEL (04/12/2024 12:04 PM EDT) BUN 25(H) 6 - 20 mg/dL 04/12/2024 12:58 PM EDT [facility] Creatinine 1.3(H) 0.5 - 1.0 mg/dL 04/12/2024 12:58 PM EDT [facility] Estimated Glomerular Filtration Rate 46(L) >=60 mL/min 04/12/2024 12:58 PM EDT [facility] [place] [facility] Comment:eGFR is calculated b ased on the CKD-EPI 2020 equation Sodium 138 135 - 146 mmol/L 04/12/2024 12:58 PM EDT [facility] [place] [facility] Potassium 4.7 3.5 - 5.1 mmol/L 04/12/2024 12:58 PM EDT [facility] [place] [facility] Chloride 102 98 - 107 mmol/L 04/12/2024 12:58 PM EDT [facility] [place] [facility] CO2 24 22 - 32 mmol/L 04/12/2024 12:58 PM EDT [facility] [place] [facility] Anion Gap 12 7 - 15 mmol/L 04/12/2024 12:58 PM EDT [facility] [place] [facility] Glucose 109 70 - 120 mg/dL 04/12/2024 12:58 PM EDT [facility] [place] [facility] Calcium 10.0 8.4 - 10.2 mg/dL 04/12/2024 12:58 PM EDT [facility] [place] [facility] Blood Venous blood specimen / Unknown Venipuncture / Unknown 04/12/2024 12:04 PM EDT 04/12/2024 12:04 PM EDT Timmy Meyer MD LAB BLOOD ORDERAB LES [facility] [place] [facility] [address] [place] [address] documented in this encounter Visit Diagnoses Diagnosis Dyslipidemia Other and unspecified hyperlipidemia Type 2 diabetes mellitus with hemoglobin A1c goal of less than 8.0% (HCC) HTN, goal below 130/80 Unspecified essential hypertension Acquired hypothyroidism Unspecified hypothyroidism MyCode Research Other*[id number] documented in this encounter Care Teams Shiatsu Therapist Relationship Specialty Start Date End Date Timmy Meyer MD [address] [place] [address] PCP - General Family Medicine 11/18/21 documented as of this encounter
--- OUTSIDE RECORDS SUMMARY | 2024-09-16 11:06 | External Medical Summary | Summary of Care ---
Author Name Unknown Organization [facility] Address [address] [place] [address] Phone [phone] Care Team Providers Care Ruby On Rails Consultant Name Role Phone Timmy Meyer MD Primary Care Provider [phone] Reason for Visit * Reason Comments Arm Pain Pt here to follow up on continuing burning pain on R upper arm Encounter Details Date Type Department Care Team (Late st Contact Info) Description 04/25/2024 11:40 AM EDT Office Visit Family Practice [facility] [address] [place] [address] Timmy Meyer MD [address] [place] [address] Post herpetic neuralgia*; Dermatitis Allergies Active Allergy Reactions Criticality Noted Date Comments Roy-2 Inhibitors 05/13/2006 Hives and swelling Sulfa Antibiotics 11/18/2021 documented as of this encounter (statuses as of 04/25/2024) Medications Medication Sig Dispensed Refills Start Date [...] 0.1 % Nasal Solution (Astelin) Administer 1 [place] into nostril in the morning and 1 [place] before bedtime. 30 mL 12 06/11/2023 Active Omeprazole 40 MG Oral Capsule Delayed Release (PriLOSEC) TAKE 1 CAPSULE IN THE MORNING 90 Capsule 3 06/29/2023 Active Neomycin-Polymyxi n-HC 3.5-14997-2 Otic Solution Administer 4 Drops into ears [...] Active Atorvastatin Calcium 20 MG Oral Tablet (Lipitor)Indicati ons:Dyslipidemia TAKE 1 TABLET IN THE MORNING 90 Tablet 02/01/2024 Active hydroCHLOROthiazi de 12.5 MG Oral Tablet TAKE ONE TABLET BY MOUTH EVERY MORNING 90 Tablet 1 02/17/2024 Active PreserVision AREDS 2+Multi Vit Oral Capsule Take by mouth. Active Centrum Minis Women 50+ Oral Tablet Take by mouth. Active Zolpidem Tartrate 10 MG Oral Tablet (Ambien)Indicatio ns:Chronic insomnia Take 1 Tablet by mouth at bedtime. 90 Tablet 04/12/2024 Active Levothyroxine Sodium 88 MCG Oral Tablet (Levoxyl) Take 1 Tablet by mouth in the morning. 90 Tablet 3 04/11/2024 Active Pregabalin 100 MG Oral Capsule (Lyrica)Indicatio ns:Post herpetic neuralgia Take 1 Capsule by mouth in the morning and 1 Capsule before bedtime. 60 Capsule 5 04/18/2024 Active Nystatin-Triamcin olone 270497-9.1 UNIT/GM-% External Cream (Mycolog) Apply topically to affected area 2 times a day for 14 days. To affacted area for two weeks. 30 g 1 04/25/2024 05/09/2024 Active documented as of this encounter (statuses as of 04/25/2024) Active Problems Problem Noted Date Diagnosed Date [...] as of this encounter (statuses as of 04/25/2024) Resolved Problems Problem Noted Date Diagnosed Date Resolved Date Encounter for examination fo r normal comparison and control in clinical research program 09/26/2018 06/03/2020 Overview: DO NOT DELETE [facility] DETECT Study: Project # [id number], Vaccine Key Customer Leader: Delfino Sherman, PhD. SUMMARY: Goal: Establish test [...] contact study staff at ; after hours Vaccine Key Customer Leader via the [facility] flavoring machine operator . Please contact study team before resolving/deleting from patients problem list. Study phone number: [phone]. Diagnosis changed due to Research Module. Go to Snapshot for study details. Encounter for examination fo r normal comparison and control in clinical research program 09/26/2018 07/02/2022 Overview: DO NOT DELETE - [facility] DETECT Study: Project # [id number], Vaccine Key Customer Leader: Gennaro Scott, MS, MPH. SUMMARY: Goal: Establish [...] contact study staff at ; after hours Vaccine Key Customer Leader via the [facility] flavoring machine operator . - Please contact study team before resolving/deleting from patients problem list. Study phone number: [phone]. Diagnosis changed due to Research Module. Go to Snapshot for study details. documented as of this encounter (statuses as of 04/25/2024) Immunizations Name Administration Dates Next Due COVID-19, MRNA-LNP, 23-24, P F, 50 MCG/0.5 mL, 12 YRS AND ABOVE, IM (MODERNA-Spikevax) 10/05/2023 Pneumococcal Conjugate Vacc, 13 Valent (Prevnar) 08/16/2019 Pneumococcal Conjugate Vacci ne, 20-valent ([id number]) 02/26/2023 Pneumococcal Polysaccharide PPV23 (Pneumovax) 08/01/2017 Season [...] on file documented as of this encounter Last Filed Vital Signs Vital Sign Reading Time Taken Comments Blood Pressure 122/78 04/25/2024 11:09 AM EDT Pulse 84 04/25/2024 11:09 AM EDT Temperature 36.6 C (97.8 F) 04/25/2024 11:09 AM E DT Respiratory Rate 18 04/25/2024 11:09 AM EDT Oxygen Saturation - - Inhaled Oxygen Concentration - - Weight 70.3 kg (155 lb) 04/25/2024 11:09 AM EDT Height 167.6 cm (5' 6") 04/25/2024 11:09 AM EDT Body Mass Index 25.02 04/25/2024 11:09 AM EDT documented in this encounter Progress Notes * Timmy Meyer MD - 04/25/2024 12:03 PM EDT SUBJECTIVE: Emmanuelle Walker is a 73 year old female. Chief Complaint Patient presents with Arm Pain Pt here to follow up on continuing burning pain on R upper arm HPI: Here for ongoing pain in right upper arm over her scabbed vesicular lesions from recent shingles infection. 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 Patient Active Problem List Diagnosis Acquired hypothyroidism Dyslipidemia HTN, goal below 130/80 Depression with anxiety Gastroesophageal reflux disease without esophagitis Chronic insomnia Type 2 diabetes mellitus with hemoglobin A1c goal of less than 8.0% ([facility]) Chronic kidney disease, stage 3a (HCC) Post herpetic neuralgia Current Outpatient Medications Medication Sig Dispense Refill metFORMIN HCl 1000 MG Oral Tablet (Glucophage) Take by mouth 1 Tablet 2 times a day with morning and evening meals . 360 Tablet 3 Venlafaxine HCl ER 150 MG Oral Capsule Extended Release 24 Hour (Effexor XR) Take 1 Capsule by mouth in the morning and 1 Capsule in the evening. Takes 2 daily. 180 Capsule 3 Azelastine HCl 0.1 % Nasal Solution (Astelin) Administer 1 [place] into nostril in the morning and 1 [place] before bedtime. 30 mL 12 Omeprazole 40 MG Oral Capsule Delayed Release (PriLOSEC) TAKE 1 CAPSULE IN THE MORNING 90 Capsule 3 PARoxetine HCl 10 MG Oral Tablet (pAXil) TAKE 1 TABLET IN THE MORNING 90 Tablet 3 Lisinopril 20 MG Oral Tablet (Prinivil) TAKE 1 TABLET IN THE MORNING 90 Tablet 2 Atorvastatin Calcium 20 MG Oral Tablet (Lipitor) TAKE 1 TABLET IN THE MORNING 90 Tablet 0 hydroCHLOROthiazide 12.5 MG Oral Tablet TAKE ONE TABLET BY MOUTH EVERY MORNING 90 Tablet 1 PreserVision AREDS 2+Multi Vit Oral Capsule Take by mouth. Centrum Minis Women 50+ Oral Tablet Take by mouth. Zolpidem Tartrate 10 MG Oral Tablet (Ambien) Take 1 Tablet by mouth at bedtime. 90 Tablet 0 Levothyroxine Sodium 88 MCG Oral Tablet (Levoxyl) Take 1 Tablet by mouth in the morning. 90 Tablet 3 Pregabalin 100 MG Oral Capsule (Lyrica) Take 1 Capsule by mouth in the morning and 1 Capsule beforebedtime. 60 Capsule 5 Nystatin-Triamcinolone 479737-7.1 UNIT/GM-% External Cream (Mycolog) Apply topically to affected area 2 times a day for 14 days. To affacted area for two weeks. 30 g 1 Lggfklkd-Qcqfuvbje-HP 3.5-11607-9 Otic Solution Administer 4 Drops into ears in the morning and 4 Drops at noon and 4 Drops before bedtime. To affected ear, for 10 days.. 10 mL 2 No current facility-administered medications for this visit. Allergy: Review of patient's allergies indicates: Allergen Reactions Roy-2 Inhibitors Hives and swelling Sulfa Antibiotics OBJECTIVE: BP 122/78 | Pulse 84 | Temp 36.6 C (97.8 F) (Tympanic) | Resp 18 | Ht 1.676 m (5' 6") | Wt 70.3kg (155 lb) | BMI 25.02 kg/m | BSA 1.81 m Gen: nad Ext: several scabbed over/crusted vesicles in small group ASSESSMENT AND PLAN: (B02.29) Post herpetic neuralgia (primary encounter diagnosis) Plan: start increased dose of Lyrica (L30.9) Dermatitis Plan: mycolog x 1 week; keep it covered Follow up as needed. No other complaints were offered at this time. Timmy Meeyr MD documented in this encounter Nursing Notes * Candice Mays LPN - 04/25/2024 11:09 AM EDT The patient has been properly identified by confirmation of name and date of . Chief Complaint Patient presents with Arm Pain Pt here to follow up on continuing burning pain on R upper arm documented in this encounter Plan of Treatment Upcoming Encounters Date Type Department Care Team (Late st Contact Info) Description 10/23/2024 11:40 AM EST [facility] [address] [place] [address] Timmy Meyer MD [address] [place] [address] 03/06/2025 11:00 AM EDT Nurse Only [facility] [address] [place] [address] [place], Nurse Annual Wellness [facility] [address] [place] [address] Health Maintenance Due Date Last Done Comments [...] 06/22/2024 06/22/2023, 0606/2022 CKD HGB USE SMARTSET 33542 06/22/2024 06/22/2023, CKD PHOS USE SMARTSET 27184 06/22/2024 06/22/2023 Colonoscopy 09/20/2024 09/20/2014 Colorectal Cancer Screening 09/20/2024 GFR 10/12/2024 04/12/2024, 07/03, 06/22/2023, Additional history exists HbA1c 10/12/2024 04/12/2024, 06/02, 11/18/2022, Additional history exists Mammogram 12/03/2024 12/03/2023, 0211/2022, 12/01/2021 Depression Monitoring 02/28/2025 02/29/2024 Diabetic Foot [...] this encounter Visit Diagnoses Diagnosis Post herpetic neuralgia- Primary Herpes zoster with other nervous system complications Dermatitis Contact dermatitis and other eczema, due to unspecified cause documented in this encounter Care Teams Ruby On Rails Consultant Relationship Specialty Start Date End Date Timmy Meyer MD [address] [place] [address] PCP - General Family Medicine 11/18/21 documented as of this encounter
--- OUTSIDE RECORDS SUMMARY | 2024-09-16 11:06 | External Medical Summary | Summary of Care ---
Author Name Unknown Organization [facility] Address [address] [place] [address] Phone [phone] Care Team Providers Care Barrel Bung Remover And Dumper Name Role Phone Praveen Ramirez MD Primary Care Provider [phone] Reason for Visit * Reason Onset Date Comments Medication Refill 04/17/2024 Encounter Details Date Type Department Care Team (Late st Contact Info) Description 04/17/2024 Refill Family Practice [facility] [address] [place] [address] Praveen Ramirez MD [address] [place] [id number] Post herpetic neuralgia Allergies Active Allergy Reactions Criticality Noted Date Comments Roy-2 Inhibitors 05/13/2006 Hives and swelling Sulfa Antibiotics 11/18/2021 documented as of this encounter (statuses as of 04/18/2024) Medications Medication Sig Dispensed Refills Start Date [...] 0.1 % Nasal Solution (Astelin) Administer 1 [place] into nostril in the morning and 1 [place] before bedtime. 30 mL 12 06/11/2023 Active Omeprazole 40 MG Oral Capsule Delayed Release (PriLOSEC) TAKE 1 CAPSULE IN THE MORNING 90 Capsule 3 06/29/2023 Active Neomycin-Polymyx in-HC 3.5-67637-0 Otic Solution Administer 4 Drops into ears [...] IN THE MORNING 90 Tablet 02/01/2024 Active hydroCHLOROthiaz bart 12.5 MG Oral Tablet [...] the morning. 90 Tablet 3 04/11/2024 Active valACYclovir HCl 1 GM Oral Tablet (Valtrex) Take 1 Tablet by mouth in the morning and 1 Tablet at noon and 1 Tablet before bedtime. Do all this for 7 days. For 7 days for shingles. 21 Tablet 04/12/2024 4 Active Pregabalin 100 MG Oral Capsule (Lyrica)Indicati ons:Post herpetic neuralgia Take 1 Capsule by mouth in the morning and 1 Capsule before bedtime. 60 Capsule 5 04/18/2024 Active Pregabalin 100 MG Oral Capsule (Lyrica)Indicati ons:Post herpetic neuralgia Take 1 Capsule by mouth in the morning and 1 Capsule before bedtime. 60 Capsule 11 04/12/2024 4 Discontinue d(Refill) documented as of this encounter (statuses as of 04/18/2024) Active Problems Problem Noted Date Diagnosed Date [...] as of this encounter (statuses as of 04/18/2024) Resolved Problems Problem Noted Date Diagnosed Date Resolved Date Encounter for examination fo r normal comparison and control in clinical research program 09/26/2018 06/03/2020 Overview: DO NOT DELETE C2C REI Software DETECT Study: Project # [id number], Materials Handling Equipment Operator: Delfino Sherman, PhD. SUMMARY: Goal: Establish test [...] contact study staff at ; after hours Materials Handling Equipment Operator via the [facility] hospital doweling machine operator . Please contact study team before resolving/deleting from patients problem list. Study phone number: [phone]. Diagnosis changed due to Research Module. Go to Snapshot for study details. Encounter for examination fo r normal comparison and control in clinical research program 09/26/2018 07/02/2022 Overview: DO NOT DELETE - C2C REI Software DETECT Study: Project # [id number], Materials Handling Equipment Operator: Gennaro Scott, MS, MPH. SUMMARY: Goal: Establish [...] contact study staff at ; after hours Materials Handling Equipment Operator via the [facility] hospital doweling machine operator . - Please contact study team before resolving/deleting from patients problem list. Study phone number: [phone]. Diagnosis changed due to Research Module. Go to Snapshot for study details. documented as of this encounter (statuses as of 04/18/2024) Immunizations Name Administration Dates Next Due COVID-19, MRNA-LNP, 23-24, P F, 50 MCG/0.5 mL, 12 YRS AND ABOVE, IM (MODERNA-Spikevax) 10/05/2023 Pneumococcal Conjugate Vacc, 13 Valent (Prevnar) 08/16/2019 Pneumococcal Conjugate Vacci ne, 20-valent (Edleiul20) 02/26/2023 Pneumococcal Polysaccharide PPV23 (Pneumovax) 08/01/2017 Season [...] Telephone Encounter - Praveen Ramirez MD - 04/18/2024 10:50 AM EDTSigned Prescriptions: Disp Refills Pregabalin 100 MG Oral Capsule (Lyrica) 60 Cap*5 Sig: Take 1 Capsule by mouth in the morning and 1 Capsule before bedtime. Authorizing Provider: PRAVEEN RAMIREZ * Telephone Encounter - April Peralta RPh - 04/17/2024 4:28 PM EDTPending Prescriptions: Disp Refills Pregabalin 100 MG Oral Capsule (Lyrica) 60 Cap*5 Sig: Take 1 Capsule by mouth in the morning and 1 Capsule before bedtime. * Telephone Encounter - April Peralta RP - 04/17/2024 4:15 PM EDT Patient asking for reroute of rx sent on 04/12/2024 to mail order. Cancelled rx sent to [facility] today I have reviewed the patients controlled substance dispensing history in the Prescription Drug Monitoring Program in compliance with the [facility] regulations before prescribing a controlled substance. PDMP checked on 04/17/2024. Pending Prescriptions: Disp Refills Pregabalin 100 MG Oral Capsule (Lyrica) 60 Cap*11 Sig: Take 1 Capsule by mouth in the morning and 1 Capsule before bedtime. Last Visit: 04/12/2024 (in office), Visit date not found (telemedicine) Next Visit: 10/23/2024 Date medication was last filled: 04/04/2024 Date medication is due for refill: 04/26/2024 (Mail Order) Pharmacy: [facility] Is this request for a controlled substance? Yes and Urine Drug Screen Not completed Toxicology results: No results found for this or any previous visit. Please approve if appropriate. Thank you, April Peralta [facility] Clinical Pharmacist Centralized Clinical Pharmacy Services (CCPS) 04/17/24 4:18 PM [phone] documented in this encounter Plan of Treatment Upcoming Encounters Date Type Department Care Team (Late st Contact Info) Description 10/23/2024 11:40 AM EST Office Visit Family Practice [facility] [address] [place] [address] Praveen Ramirez MD [address] [place] [address] 03/06/2025 11:00 AM EDT Nurse Only Ancillary [facility] [address] [place] [address] [place], Nurse Annual Wellness [facility] [address] [place] [address] Health Maintenance Due Date Last Done Comments Hepatitis C Screening 1970 DTaP,Tdap,and Td Vaccines (1 - Tdap) 1971 Cologuard 1997 Fecal Occult Blood Test 1997 Sigmoidoscopy 1997 Zoster Vaccines (3 of 3) 08/22/2020 020, 06/27/2020, 04/12/2020, Additional history exists COVID-19 Vaccine ( - 2022- season) 2024 10/05/2023, 10/04/2021, 01/07/2021, Additional history exists Diabetic Eye Exam 03/31/2024 03/31/2023, 06/22/2022 *BASELINE EKG FOR HTN 04/14/2024 Albumin/Creatinine Ratio 06/22/2024 06/22/2023, 06/06/2022 CKD HGB USE SMARTSET 44418 06/22/2024 06/22/2023, CKD PHOS USE SMARTSET 53682 06/22/2024 06/22/2023 Colonoscopy 09/20/2024 09/20/2014 Colorectal Cancer Screening 09/20/2024 GFR 10/12/2024 04/12/2024, 07/03, 06/22/2023, Additional history exists HbA1c 10/12/2024 04/12/2024, 06/02, 11/18/2022, Additional history exists Mammogram 12/03/2024 12/03/2023, 02/0 11/2022, 12/01/2021 Depression [...] complications documented in this encounter Care Teams Barrel Bung Remover And Dumper Relationship Specialty Start Date End Date Praveen Ramirez MD [address] [place] [address] PCP - General Family Medicine 11/18/21 documented as of this encounter
--- OUTSIDE RECORDS SUMMARY | 2024-09-16 11:06 | External Medical Summary ---
Author Name Unknown Address Unknown Organization [id number][facility] [address] [place] [address] Laboratory Report Ordering Provider Test Date Status ASHLEY MORTON 04/12/2024 12:04:42 Final Observation Date Value Abnormality Reference (Units ) Status BUN 04/12/2024 12:04:42 25 Above high normal 6-20 (mg/dL) Final Creatinine 04/12/2024 12:04:42 1.3 Above high normal 0.5-1.0 (mg/dL) Final Glomerular filtration rate/1.73 sq M.predicted [Volume Rate/Area] in Serum, Plasma or Blood by Creatinine-based formula (CKD-EPI) 04/12/2024 12:04:42 46 Below low normal >=60 (mL/min) Final eGFR is calculated based on the CKD-EPI 2020 equation Sodium 04/12/2024 12:04:42 138 135-146 (m mol/L) Final Potassium 04/12/2024 12:04:42 4.7 3.5-5.1 (m mol/L) Final Cl 04/12/2024 12:04:42 102 98-107 (mm ol/L) Final CO2 04/12/2024 12:04:42 24 22-32 (mmo l/L) Final Anion gap 04/12/2024 12:04:42 12 7-15 (mmol /L) Final Glucose 04/12/2024 12:04:42 109 70-120 (mg /dL) Final Calcium 04/12/2024 12:04:42 10.0 8.4-10.2 ( mg/dL) Final Performing Location LABORATORY [facility] [place] [address] [place] [address]
--- OUTSIDE RECORDS SUMMARY | 2024-09-16 11:06 | External Medical Summary | Summary of Care ---
Author Name Unknown Organization [facility] Address [address] [place] [address] Phone [phone] Care Team Providers Care Development Scientist Name Role Phone Timmy Meyer MD Primary Care Provider [phone] Encounter Details Date Type Department Care Team (Late st Contact Info) Description 04/17/2024 Orders Only Outcomes Research Department [address] [place] [address] Siomara Holland CHRA MyCCity Notes Research Other*[id number] Allergies Active Allergy Reactions Criticality Noted Date Comments Roy-2 Inhibitors 05/13/2006 Hives and swelling Sulfa Antibiotics 11/18/2021 documented as of this encounter (statuses as of 04/17/2024) Medications Medication Sig Dispensed Refills Start Date [...] 0.1 % Nasal Solution (Astelin) Administer 1 [place] into nostril in the morning and 1 [place] before bedtime. 30 mL 12 06/11/2023 Active Omeprazole 40 MG Oral Capsule Delayed Release (PriLOSEC) TAKE 1 CAPSULE IN THE MORNING 90 Capsule 3 06/29/2023 Active Neomycin-Polymyxi n-HC 3.5-73040-8 Otic Solution Administer 4 Drops into ears [...] Capsule before bedtime. 60 Capsule 11 04/12/2024 Active valACYclovir HCl 1 GM Oral Tablet (Valtrex) Take 1 Tablet by mouth in the morning and 1 Tablet at noon and 1 Tablet before bedtime. Do all this for 7 days. For 7 days for shingles. 21 Tablet 04/12/2024 04/19/2024 Active documented as of this encounter (statuses as of 04/17/2024) Active Problems Problem Noted Date Diagnosed Date [...] as of this encounter (statuses as of 04/17/2024) Resolved Problems Problem Noted Date Diagnosed Date Resolved Date Encounter for examination fo r normal comparison and control in clinical research program 09/26/2018 06/03/2020 Overview: DO NOT DELETE Pfenex SY Study: Project # [id number], Ice Cream Dispenser: Delfino Sherman, PhD. SUMMARY: Goal: Establish test [...] contact study staff at ; after hours Ice Cream Dispenser via the [facility] hospital motor vehicle operator road supervisor . Please contact study team before resolving/deleting from patients problem list. Study phone number: [phone]. Diagnosis changed due to Research Module. Go to Snapshot for study details. Encounter for examination fo r normal comparison and control in clinical research program 09/26/2018 07/02/2022 Overview: DO NOT DELETE - Pfenex SY Study: Project # [id number], Ice Cream Dispenser: Gennaro Scott, MS, MPH. SUMMARY: Goal: Establish [...] contact study staff at ; after hours Ice Cream Dispenser via the [facility] hospital motor vehicle operator road supervisor . - Please contact study team before resolving/deleting from patients problem list. Study phone number: [phone]. Diagnosis changed due to Research Module. Go to Snapshot for study details. documented as of this encounter (statuses as of 04/17/2024) Immunizations Name Administration Dates Next Due COVID-19, MRNA-LNP, 23-24, P F, 50 MCG/0.5 mL, 12 YRS AND ABOVE, IM (MODERNA-Spikevax) 10/05/2023 Pneumococcal Conjugate Vacc, 13 Valent (Prevnar) 08/16/2019 Pneumococcal Conjugate Vacci ne, 20-valent ([id number]) 02/26/2023 Pneumococcal Polysaccharide PPV23 (Pneumovax) 08/01/2017 Season [...] 11:40 AM EST Office Visit Family Practice [facility] [address] [place] [address] Timmy Meyer MD [address] [place] [address] 03/06/2025 11:00 AM EDT Nurse Only Ancillary [facility] [address] [place] [address] [facility], Nurse Annual Wellness [facility] [address] [place] [address] Scheduled Orders Name Type Priority Associated Diagnoses Orde r Schedule MYCODE SUBSEQUENT ADULT Lab Routine MyCode Research Other*[id number] Every 6 Months for 2 Occurrences starting 04/17/2024 until 05/07/2025 Health Maintenance Due Date Last Done Comments Hepatitis C Screening 1970 DTaP,Tdap,and Td Vaccines (1 - Tdap) 1971 Cologuard 1997 Fecal Occult Blood Test 1997 Sigmoidoscopy 1997 Zoster Vaccines (3 of 3) 08/22/20202 020, 06/27/2020, 04/12/2020, Additional history exists COVID-19 Vaccine ( season) 2024 10/05/2023, 10/04/2021, 01/07/2021, Additional history exists Diabetic Eye Exam 03/31/2024 03/31/2023, 06/22/2022 *BASELINE EKG FOR HTN 04/14/2024 Albumin/Creatinine Ratio 06/22/2024 06/22/2023, 06/0 06/2022 CKD HGB USE SMARTSET 91292 06/22/2024 06/22/2023, CKD PHOS USE SMARTSET 19928 06/22/2024 06/22/2023 Colonoscopy 09/20/2024 09/20/2014 Colorectal Cancer [...] as of this encounter Visit Diagnoses Diagnosis MyCode Research Other*[id number] documented in this encounter Care Teams Development Scientist Relationship Specialty Start Date End Date Timmy Meyer MD [address] [place] [address] PCP - General Family Medicine 11/18/21 documented as of this encounter
--- OUTSIDE RECORDS SUMMARY | 2024-09-16 11:06 | External Medical Summary ---
Author Name Unknown Address Unknown Organization K01:[facility]ATORY [facility] [place] [place] - [address] [place] [address] Laboratory Report Ordering Provider Test Date Status VIRGIL LEARY 04/12/2024 12:04:42 Final Observation Date Value Abnormality Reference (Units ) Status MYCODE SPECIMEN-SST 04/12/2024 12:04:42 Freezing of extracted DNA, whole blood and/or serum. Final Performing Location LABORATORY C - [address] [place] [address]
--- OUTSIDE RECORDS SUMMARY | 2024-09-16 11:06 | External Medical Summary | Summary of Care ---
Author Name Unknown Organization [facility] Address [address] [place] [address] Phone [phone] Care Team Providers Care Phone Representative Name Role Phone Praveen Ramirez MD Primary Care Provider [phone] Reason for Visit * Reason Onset Date Comments Medication Refill 04/10/2024 Encounter Details Date Type Department Care Team (Late st Contact Info) Description 04/10/2024 Refill Family Practice [facility] [address] [place] [address] Praveen Ramirez MD [address] [place] [id number] Chronic insomnia Allergies Active Allergy Reactions Criticality [...] 0.1 % Nasal Solution (Astelin) Administer 1 [place] into nostril in the morning and 1 [place] before bedtime. 30 mL 12 06/11/2023 Active Omeprazole 40 MG Oral Capsule Delayed Release (PriLOSEC) TAKE 1 CAPSULE IN THE MORNING 90 Capsule 3 06/29/2023 Active Neomycin-Polymyx in-HC 3.5-66293-7 Otic Solution Administer 4 Drops into ears in the morning and 4 Drops at noon and 4 Drops before bedtime. To affected ear, for 10 days.. 10 mL 2 10/12/2023 Active PARoxetine HCl 10 MG Oral Tablet (pAXil) TAKE 1 TABLET IN THE MORNING 90 Tablet 3 10/26/2023 Active Pregabalin 75 MG Oral Capsule (Lyrica)Indicati ons:Post herpetic neuralgia TAKE ONE CAPSULE BY MOUTH TWICE DAILY 60 Capsule 5 12/13/2023 Active Lisinopril 20 MG Oral Tablet (Prinivil) [...] the morning. 90 Tablet 3 04/11/2024 Active Zolpidem Tartrate 10 MG Oral Tablet (Ambien)Indicati ons:Chronic insomnia TAKE 1 TABLET AT BEDTIME 90 Tablet 01/23/2024 4 Discontinue d(Refill) documented as of this [...] program 09/26/2018 06/03/2020 Overview: DO NOT DELETE AmbrocioFotomoto DETECT Study: Project # [id number], Call Out Operator: Delfino Sherman, PhD. SUMMARY: Goal: Establish [...] contact study staff at ; after hours Call Out Operator via the [facility] front end loader operator . Please contact study team before resolving/deleting from patients problem list. Study phone number: [phone]. Diagnosis changed due to Research Module. Go to Snapshot for study details. Encounter for examination fo r normal comparison and control in clinical research program 09/26/2018 07/02/2022 Overview: DO NOT DELETE - Bubbles DETECT Study: Project # [id number], Call Out Operator: Gennaro Scott, MS, MPH. SUMMARY: Goal: [...] contact study staff at ; after hours Call Out Operator via the [facility] front end loader operator . - Please contact study team before resolving/deleting from patients problem list. Study phone number: [phone]. Diagnosis changed due to Research Module. Go to Snapshot for study details. documented as of this encounter (statuses as of 04/12/2024) Immunizations Name Administration Dates Next Due COVID-19, MRNA-LNP, 23-24, P F, 50 MCG/0.5 mL, 12 YRS AND ABOVE, IM (MODERNA-Spikevax) 10/05/2023 Pneumococcal Conjugate Vacc, 13 Valent (Prevnar) 08/16/2019 Pneumococcal Conjugate Vacci ne, 20-valent ([id number]) 02/26/2023 Pneumococcal Polysaccharide PPV23 (Pneumovax) 08/01/2017 Season [...] Telephone Encounter - Praveen Ramirez MD - 04/12/2024 8:13 AM EDTSigned Prescriptions: Disp Refills Zolpidem Tartrate 10 MG Oral Tablet (Ambie*90 Tab*0 Sig: Take 1 Tablet by mouth at bedtime. Authorizing Provider: PRAVEEN RAMIREZ * Telephone Encounter - Miriam Coronado [facility] - 04/12/2024 7:41 AM EDT Pending Prescriptions: Disp Refills Zolpidem Tartrate 10 MG Oral Tablet (Ambie*90 Tab*0 Sig: Take 1 Tablet by mouth at bedtime. * Telephone Encounter - Miriam Coronado [facility] - 04/12/2024 7:38 AM EDT I have reviewed the patients controlled substance dispensing history in the Prescription Drug Monitoring Program in compliance with the [facility] regulations before prescribing a controlled substance. PDMP checked on 04/12/2024. Pending Prescriptions: Disp Refills Zolpidem Tartrate 10 MG Oral Tablet (Ambi*90 Tab*0 Sig: Take 1 Tablet by mouth at bedtime. Last Visit: 10/12/2023 (in office), Visit date not found (telemedicine) Next Visit: 04/12/2024 Date medication was last filled: 01/23/24 Date medication is due for refill: 04/19/24 - mail order Pharmacy: [facility]-[address] Is this request for a controlled substance? Yes and Urine Drug Screen Not completed Toxicology results: No results found for this or any previous visit. Please approve if appropriate. Thank you, Miriam Coronado PharmD Clinical Pharmacist Centralized Clinical Pharmacy Services (CCPS) [phone] 04/12/2024, 7:40 AM documented in this encounter Plan of Treatment Upcoming Encounters Date Type Department Care Team (Late st Contact Info) Description 04/12/2024 11:40 AM EDT Office Visit Family Practice [facility] [address] [facility] [place] [address] Praveen Ramirez MD [address] [facility] [place] [address] 05/31/2024 11:20 AM EDT Telemedicine Neurology [address] [place] [address] Lashae Rojo, DO [address] [facility] [place] [id number] 03/06/2025 11:00 AM EDT Nurse Only Ancillary [facility] [address] [facility] [place] [address] [place], Nurse Annual Wellness [facility] [address] [facility] [place] [address] Health Maintenance Due Date Last Done Comments Hepatitis C Screening 1970 DTaP,Tdap,and Td Vaccines (1 - Tdap) 1971 Cologuard 1997 Fecal Occult Blood Test 1997 Sigmoidoscopy 1997 Zoster Vaccines (3 of 3) 08/22/2020 020, 06/27/2020, 04/12/2020, Additional history exists TSH 11/18/2023 11/18/2022, 11/18/2021 HbA1c 12/23/2023 06/22/2023, 11/01, 11/18/2021 GFR 01/21/2024 07/23/2023, 06/02, 11/18/2022, Additional history exists COVID-19 Vaccine ( - 2022- season) 2024 10/05/2023, 10/04/2021, 01/07/2021, Additional history exists Diabetic Eye Exam 03/31/2024 03/31/2023, 06/22/2022 Albumin/Creatinine Ratio 06/22/2024 06/22/2023, 06/0 06/2022 CKD HGB USE SMARTSET 88220 06/22/2024 06/22/2023, CKD PHOS USE SMARTSET 67380 06/22/2024 06/22/2023 Colonoscopy 09/20/2024 09/20/2014 Colorectal Cancer [...] unspecified documented in this encounter Care Teams Phone Representative Relationship Specialty Start Date End Date Praveen Ramirez MD [address] [place] [address] PCP - General Family Medicine 11/18/21 documented as of this encounter
--- OUTSIDE RECORDS SUMMARY | 2024-09-16 11:06 | External Medical Summary | Summary of Care ---
Author Name Unknown Organization [facility] Address [address] [place] [address] Phone [phone] Care Team Providers Care Consulting Technical Director Name Role Phone Timmy Meyer MD Primary Care Provider [phone] [phone] Reason for Visit * Reason Comments eRx-Medication Refill Encounter Details Date Type Department Care Team (Late st Contact Info) Description 04/10/2024 Refill Family Practice [facility] [address] [place] [address] Timmy Meyer MD [address] [place] [address] Allergies Active Allergy Reactions Criticality Noted Date Comments Roy-2 Inhibitors 05/13/2006 Hives and swelling Sulfa Antibiotics 11/18/2021 documented as of this encounter (statuses as of 04/11/2024) Medications Medication Sig Dispensed Refills Start Date [...] 0.1 % Nasal Solution (Astelin) Administer 1 [place] into nostril in the morning and 1 [place] before bedtime. 30 mL 12 06/11/2023 Active Omeprazole 40 MG Oral Capsule Delayed Release (PriLOSEC) TAKE 1 CAPSULE IN THE MORNING 90 Capsule 3 06/29/2023 Active Neomycin-Polymyx in-HC 3.5-26309-0 Otic Solution Administer 4 Drops into ears [...] THE MORNING 90 Tablet 2 12/23/2023 Active Zolpidem Tartrate 10 MG Oral Tablet (Ambien)Indicati ons:Chronic insomnia TAKE 1 TABLET AT BEDTIME 90 Tablet 01/23/2024 Active Atorvastatin Calcium 20 MG Oral Tablet [...] mouth in the morning. 90 Tablet 3 04/16/2023 4 Discontinue d(Refill) documented as of this encounter (statuses as of 04/11/2024) Active Problems Problem Noted Date Diagnosed Date [...] as of this encounter (statuses as of 04/11/2024) Resolved Problems Problem Noted Date Diagnosed Date Resolved Date Encounter for examination fo r normal comparison and control in clinical research program 09/26/2018 06/03/2020 Overview: DO NOT DELETE [facility] SY Study: Project # [id number], Trauma Nurse: Delfino Sherman, PhD. SUMMARY: Goal: Establish [...] contact study staff at ; after hours Trauma Nurse via the [facility] hospital napping machine operator . Please contact study team before resolving/deleting from patients problem list. Study phone number: [phone]. Diagnosis changed due to Research Module. Go to Snapshot for study details. Encounter for examination fo r normal comparison and control in clinical research program 09/26/2018 07/02/2022 Overview: DO NOT DELETE - [facility] SY Study: Project # [id number], Trauma Nurse: Gennaro Scott, MS, MPH. SUMMARY: Goal: [...] contact study staff at ; after hours Trauma Nurse via the [facility] hospital napping machine operator . - Please contact study team before resolving/deleting from patients problem list. Study phone number: [phone]. Diagnosis changed due to Research Module. Go to Snapshot for study details. documented as of this encounter (statuses as of 04/11/2024) Immunizations Name Administration Dates Next Due COVID-19, MRNA-LNP, 23-24, P F, 50 MCG/0.5 mL, 12 YRS AND ABOVE, IM (MODERNA-Spikevax) 10/05/2023 Pneumococcal Conjugate Vacc, 13 Valent (Prevnar) 08/16/2019 Pneumococcal Conjugate Vacci ne, 20-valent ([id number]) 02/26/2023 Pneumococcal Polysaccharide PPV23 (Pneumovax) 08/01/2017 Season [...] encounter Miscellaneous Notes * Telephone Encounter - Meg Whitley LPN - 04/11/2024 9:07 AM EDT Refused Prescriptions: Disp Refills Levothyroxine Sodium 88 MCG Oral Tablet [P*90 Tab*3 Sig: TAKE 1 TABLET IN THE MORNINGRefused By: MEG WHITLEY MReason for Refusal: Other (comment below)--- documented in this encounter Plan of Treatment Upcoming Encounters Date Type Department Care Team (Late st Contact Info) Description 04/12/2024 11:40 AM EDT Office Visit Family Practice [facility] [address] [place] [address] Timmy Meyer MD [address] [facility] [place] [address] 05/31/2024 11:20 AM EDT Telemedicine Neurology [address] [place] [id number] Lashae Rojo, DO [address] [facility] [address] [place] [address] 03/06/2025 11:00 AM EDT Nurse Only Ancillary [facility] [address] [place] [address] [place], Nurse Annual Wellness [facility] [place] [address] Health Maintenance Due Date Last Done Comments [...] 06/22/2023, 06/0 06/2022 CKD HGB USE SMARTSET 68672 06/22/2024 06/22/2023, CKD PHOS USE SMARTSET 74944 06/22/2024 06/22/2023 Colonoscopy 09/20/2024 09/20/2014 Colorectal Cancer [...] filedocumented as of this encounter Care Teams Consulting Technical Director Relationship Specialty Start Date End Date Timmy Meyer MD [address] [place] [address] PCP - General Family Medicine 11/18/21 documented as of this encounter
--- OUTSIDE RECORDS SUMMARY | 2024-09-16 11:06 | External Medical Summary ---
Author Name Unknown Address Unknown Organization K01:[facility] - [address] [place] [address] Laboratory Report Ordering Provider Test Date Status VIRGIL LEARY 04/12/2024 12:04:42 Final Observation Date Value Abnormality Reference (Units ) Status MYCODE SPECIMEN-LAV 04/12/2024 12:04:42 Freezing of extracted DNA, whole blood and/or serum. Final Performing Location [facility] - [address] [place] [address]
--- OUTSIDE RECORDS SUMMARY | 2024-09-16 11:06 | External Medical Summary ---
Author Name Unknown Address Unknown Organization K01[facility] [place] [address] [facility] [address] Laboratory Report Ordering Provider Test Date Status ASHLEY MORTON 04/12/2024 12:04:42 Final Observation Date Value Abnormality Reference (Units ) Status HbA1C 04/12/2024 12:04:42 7.0 Above high normal 4. 0-5.6 (%) Final The use of HbA1c to monitor glycemic status is based on normal hemoglobin and HbA composition. This test should not be used in patients with abnormal hemoglobin that affects the half life of the red blood cell or the in vivo glycation rates. Glucose, estimated average 04/12/2024 12:04:42 154 Above high normal <126 (mg/dL) Lion munoz Performing Location [facility] [place] [address] [facility] [address]
--- OUTSIDE RECORDS SUMMARY | 2024-09-16 11:06 | External Medical Summary | Summary of Care ---
Author Name Unknown Organization [facility] Address [address] [place] [address] Phone [phone] Care Team Providers Care Communications Tower Climber Name Role Phone Praveen Ramirez MD Primary Care Provider [phone] Reason for Visit * Reason Comments eRx-Medication Refill Encounter Details Date Type Department Care Team (Late st Contact Info) Description 05/01/2024 Refill Family Practice [facility] [address] [place] [address] Praveen Ramirez MD [address] [place] [address] Dyslipidemia Allergies Active Allergy Reactions Criticality Noted Date Comments Roy-2 Inhibitors 05/13/2006 Hives and swelling Sulfa Antibiotics 11/18/2021 documented as of this encounter (statuses as of 05/02/2024) Medications Medication Sig Dispensed Refills Start Date [...] 0.1 % Nasal Solution (Astelin) Administer 1 [place] into nostril in the morning and 1 [place] before bedtime. 30 mL 12 06/11/2023 Active Omeprazole 40 MG Oral Capsule Delayed Release (PriLOSEC) TAKE 1 CAPSULE IN THE MORNING 90 Capsule 3 06/29/2023 Active Neomycin-Polymyx in-HC 3.5-30123-8 Otic Solution Administer 4 Drops into ears [...] the morning. 90 Tablet 3 04/11/2024 Active Nystatin-Triamci nolone 157684-4.1 UNIT/GM-% External Cream (Mycolog) Apply topically to affected area 2 times a day for 14 days. To affacted area for two weeks. 30 g 1 04/25/2024 4 Active Atorvastatin Calcium 20 MG Oral Tablet (Lipitor)Indicat ions:Dyslipidemi a TAKE 1 TABLET IN THE MORNING 90 Tablet 1 05/02/2024 Active Pregabalin 100 MG Oral Capsule (Lyrica)Indicati ons:Post herpetic neuralgia Take 1 Capsule by mouth in the morning and 1 Capsule before bedtime. 180 Capsule 3 05/01/2024 Active Atorvastatin Calcium 20 MG Oral Tablet (Lipitor)Indicat ions:Dyslipidemi a TAKE 1 TABLET IN THE MORNING 90 Tablet 02/01/2024 4 Discontinued documented as of this encounter (statuses as of 05/02/2024) Active Problems Problem Noted Date Diagnosed Date [...] as of this encounter (statuses as of 05/02/2024) Resolved Problems Problem Noted Date Diagnosed Date Resolved Date Encounter for examination fo r normal comparison and control in clinical research program 09/26/2018 06/03/2020 Overview: DO NOT DELETE [facility] DETECT Study: Project # [id number], Instructor [employer]: Delfino Sherman, PhD. SUMMARY: Goal: Establish test [...] contact study staff at ; after hours Instructor [employer] via the [facility] hospital stabilizer operator . Please contact study team before resolving/deleting from patients problem list. Study phone number: [phone]. Diagnosis changed due to Research Module. Go to Snapshot for study details. Encounter for examination fo r normal comparison and control in clinical research program 09/26/2018 07/02/2022 Overview: DO NOT DELETE - [facility] DETECT Study: Project # [id number], Instructor [employer]: Gennaro Scott, MS, MPH. SUMMARY: Goal: Establish [...] contact study staff at ; after hours Instructor [employer] via the [facility] hospital stabilizer operator . - Please contact study team before resolving/deleting from patients problem list. Study phone number: [phone]. Diagnosis changed due to Research Module. Go to Snapshot for study details. documented as of this encounter (statuses as of 05/02/2024) Immunizations Name Administration Dates Next Due COVID-19, MRNA-LNP, 23-24, P F, 50 MCG/0.5 mL, 12 YRS AND ABOVE, IM (MODERNA-Spikevax) 10/05/2023 Pneumococcal Conjugate Vacc, 13 Valent (Prevnar) 08/16/2019 Pneumococcal Conjugate Vacci ne, 20-valent ([id number]) 02/26/2023 Pneumococcal Polysaccharide PPV23 (Pneumovax) 08/01/2017 Season [...] encounter Miscellaneous Notes * Telephone Encounter - Louis Zuniga RPh - 05/02/2024 9:31 AM EDTSigned Prescriptions: Disp Refills Atorvastatin Calcium 20 MG Oral Tablet (Li*90 Tab*1 Sig: TAKE 1TABLET IN THE MORNINGAuthorizing Provider: PRAVEEN RAMIREZ User: LOUIS ZUNIGA---- documented in this encounter Plan of Treatment Upcoming Encounters Date Type Department Care Team (Late st Contact Info) Description 10/23/2024 11:40 AM EST Office Visit Family Practice [facility] [address] [place] [address] Praveen Ramirez MD [address] [place] [address] 03/06/2025 11:00 AM EDT Nurse Only Ancillary [facility] [address] [place] [address] [place], Nurse Annual Wellness [facility] [address] [place] [address] Health Maintenance Due Date Last Done Comments [...] 06/22/2023, 06/0 06/2022 CKD HGB USE SMARTSET 25771 06/22/2024 06/22/2023, CKD PHOS USE SMARTSET 11950 06/22/2024 06/22/2023 Influenza Vaccine (FLU shot) (#1) [...] Vaccine: 65+ Years Completed 02/26/2023, 08/16/2019, 08/01/2017 GARDASIL-HPV IMMUNIZATION SERIES Aged Out No longer [...] as of this encounter Visit Diagnoses Diagnosis Dyslipidemia Other and unspecified hyperlipidemia documented in this encounter Care Teams Communications Tower Climber Relationship Specialty Start Date End Date Praveen Ramirez MD [address] [place] [address] PCP - General Family Medicine 11/18/21 documented as of this encounter
--- OUTSIDE RECORDS SUMMARY | 2024-09-16 11:06 | External Medical Summary ---
Author Name Unknown Address Unknown Organization K01[facility] [place] [address] [place] [address] Laboratory Report Ordering Provider Test Date Status ASHANTI ROJAS 04/12/2024 12:04:42 Final Observation Date Value Abnormality Reference (Units ) Status Triglyceride 04/12/2024 12:04:42 697 Above high normal <=174 (mg/dL) Final Triglyceride Reference Range s (mg/dL):
<150 Acceptable
150-174 Borderline high
175-499 High
>=500 Very high Cholesterol 04/12/2024 12:04:42 299 Above high normal <200 (mg/dL) Final Total Cholesterol Reference Ranges (mg/dL):
<200 Desirable
200-239 Borderline high
>=240 High HDL 04/12/2024 12:04:42 49 Below low normal >49 (mg/dL) Final HDL Cholesterol Reference Ra nges (mg/dL):
>=60 High (Desirable)
<50 Low (Undesirable) For Females
<40 Low (Undesirable) For Males NON-HDL CHOLESTEROL 04/12/2024 12:04:42 250 Above high normal <=159 (mg/dL) Final Non-HDL Cholesterol Referenc e Range (mg/dL):
<100 Target level for high risk ASCVD patient
<130 Optimal for general population
130-159 Near optimal for general population
160-189 Borderline High
190-219 High
>=220 Very High Performing Location [facility] - [address] [place] [address]
--- OUTSIDE RECORDS SUMMARY | 2024-09-16 11:06 | External Medical Summary | Summary of Care ---
Author Name Unknown Organization [facility] Address [address] [place] [address] Phone [phone] Care Team Providers Care Planer Chain Offbearer Name Role Phone Timmy Meyer MD Primary Care Provider [phone] [phone] Reason for Visit * Reason Onset Date Comments Medication Refill 05/02/2024 Encounter Details Date Type Department Care Team (Late st Contact Info) Description 05/02/2024 Refill Family Practice [facility] [address] [place] [address] Timmy Meyer MD [address] [place] [id number] Post herpetic neuralgia Allergies Active Allergy Reactions Criticality Noted Date Comments Roy-2 Inhibitors 05/13/2006 Hives and swelling Sulfa Antibiotics 11/18/2021 documented as of this encounter (statuses as of 05/03/2024) Medications Medication Sig Dispensed Refills Start Date [...] 0.1 % Nasal Solution (Astelin) Administer 1 [place] into nostril in the morning and 1 [place] before bedtime. 30 mL 12 06/11/2023 Active Omeprazole 40 MG Oral Capsule Delayed Release (PriLOSEC) TAKE 1 CAPSULE IN THE MORNING 90 Capsule 3 06/29/2023 Active Neomycin-Polymyxi n-HC 3.5-51384-7 Otic Solution Administer 4 Drops into ears [...] THE MORNING 90 Tablet 2 12/23/2023 Active hydroCHLOROthiazi de 12.5 MG Oral Tablet [...] the morning. 90 Tablet 3 04/11/2024 Active Nystatin-Triamcin olone 609585-7.1 UNIT/GM-% External Cream (Mycolog) Apply topically to affected area 2 times a day for 14 days. To affacted area for two weeks. 30 g 1 04/25/2024 05/09/2024 Active Atorvastatin Calcium 20 MG Oral Tablet (Lipitor)Indicati ons:Dyslipidemia TAKE 1 TABLET IN THE MORNING 90 Tablet 1 05/02/2024 Active Pregabalin 100 MG Oral Capsule (Lyrica)Indicatio ns:Post herpetic neuralgia Take 1 Capsule by mouth in the morning and 1 Capsule before bedtime. 180 Capsule 3 05/01/2024 Active documented as of this encounter (statuses as of 05/03/2024) Active Problems Problem Noted Date Diagnosed Date [...] as of this encounter (statuses as of 05/03/2024) Resolved Problems Problem Noted Date Diagnosed Date Resolved Date Encounter for examination fo r normal comparison and control in clinical research program 09/26/2018 06/03/2020 Overview: DO NOT DELETE [facility] DETECT Study: Project # [id number], Bicycle Racer: Delfino Sherman, PhD. SUMMARY: Goal: Establish test [...] contact study staff at ; after hours Bicycle Racer via the [facility] hospital operator/assistant foreman . Please contact study team before resolving/deleting from patients problem list. Study phone number: [phone]. Diagnosis changed due to Research Module. Go to Snapshot for study details. Encounter for examination fo r normal comparison and control in clinical research program 09/26/2018 07/02/2022 Overview: DO NOT DELETE - [facility] DETECT Study: Project # [id number], Bicycle Racer: Gennaro Scott, MS, MPH. SUMMARY: Goal: Establish [...] contact study staff at ; after hours Bicycle Racer via the [facility] hospital operator/assistant foreman . - Please contact study team before resolving/deleting from patients problem list. Study phone number: [phone]. Diagnosis changed due to Research Module. Go to Snapshot for study details. documented as of this encounter (statuses as of 05/03/2024) Immunizations Name Administration Dates Next Due COVID-19, MRNA-LNP, 23-24, P F, 50 MCG/0.5 mL, 12 YRS AND ABOVE, IM (MODERNA-Spikevax) 10/05/2023 Pneumococcal Conjugate Vacc, 13 Valent (Prevnar) 08/16/2019 Pneumococcal Conjugate Vacci ne, 20-valent ([id number]) 02/26/2023 Pneumococcal Polysaccharide PPV23 (Pneumovax) 08/01/2017 Season [...] encounter Miscellaneous Notes * Telephone Encounter - Abelardo Simon [facility] - 05/03/2024 8:30 AM EDTRefused Prescriptions: Disp Refills Pregabalin 100 MG Oral Capsule (Lyrica) 180 Ca*3 Sig: Take 1 Capsule by mouth in the morning and 1 Capsule before bedtime.Refused By: ABELARDO SALCEDO [facility] for Refusal: Other (comment below)Reason for Refusal Comment: Rx sent 05/01/24 documented in this encounter Plan of Treatment Upcoming Encounters Date Type Department Care Team (Late st Contact Info) Description 10/23/2024 11:40 AM EST Office Visit Family Practice [facility] [address] [place] [address] Timmy Meyer MD [address] [place] [address] 03/06/2025 11:00 AM EDT Nurse Only Ancillary [facility] [address] [place] [address] [facility], Nurse Annual Wellness [facility] [address] [place] [address] Health Maintenance Due Date Last Done Comments [...] 06/22/2023, 06/0 06/2022 CKD HGB USE SMARTSET 26996 06/22/2024 06/22/2023, CKD PHOS USE SMARTSET 65922 06/22/2024 06/22/2023 Influenza Vaccine (FLU shot) (#1) [...] complications documented in this encounter Care Teams Planer Chain Offbearer Relationship Specialty Start Date End Date Timmy Meyer MD [address] [place] [address] PCP - General Family Medicine 11/18/21 documented as of this encounter
--- OUTSIDE RECORDS SUMMARY | 2024-09-16 11:06 | External Medical Summary | Summary of Care ---
Author Name Unknown Organization [facility] Address [address] [place] [address] Phone [phone] Care Team Providers [employer] Sales Consultant Name Role Phone Timmy Meyer MD Primary Care Provider [phone] Reason for Visit * Reason Comments Follow Up Pt here for 6 month follow up, states she has continued pain on R side of face that started after having shingles. Pt woke 3 days ago with what she thought was insect bites however now they are blistering on R arm. Pt also states she is starting to have back pain with certain ROM, states it is worsening Encounter Details Date Type Department Care Team (Late st Contact Info) Description 04/12/2024 11:40 AM EDT Office Visit Family [facility] [address] [facility] [place] [address] Timmy Meyer MD [address] [facility] [place] [id number] Post herpetic neuralgia*; Herpetic lesion; Acquired hypothyroidism; Dyslipidemia; Type 2 diabetes mellitus with hemoglobin A1c goal of less than 8.0% ([facility]); HTN, goal below 130/80; Gastroesophageal reflux disease without esophagitis; Chronic kidney disease, stage 3a ([facility]); Chronic insomnia; Depression with anxiety Allergies Active Allergy Reactions Criticality Noted Date [...] 0.1 % Nasal Solution (Astelin) Administer 1 [place] into nostril in the morning and 1 [place] before bedtime. 30 mL 12 06/11/2023 Active Omeprazole 40 MG Oral Capsule Delayed Release (PriLOSEC) TAKE 1 CAPSULE IN THE MORNING 90 Capsule 3 06/29/2023 Active Neomycin-Polymyx in-HC 3.5-60922-0 Otic Solution Administer 4 Drops into ears [...] 04/11/2024 Active Pregabalin 100 MG Oral Capsule (Lyrica)Indicati [...] shingles. 21 Tablet 04/12/2024 4 Active Pregabalin 75 MG Oral Capsule (Lyrica)Indicati ons:Post herpetic neuralgia TAKE ONE CAPSULE BY MOUTH TWICE DAILY 60 Capsule 5 12/13/2023 4 Discontinue d(Discharge d) documented as of this encounter (statuses as [...] program 09/26/2018 06/03/2020 Overview: DO NOT DELETE [facility] DETECT Study: Project # [id number], Petroleum Geologist: Delfino Sherman, PhD. SUMMARY: Goal: Establish test [...] contact study staff at ; after hours Petroleum Geologist via the [facility] dedicated owner operator . Please contact study team before resolving/deleting from patients problem list. Study phone number: [phone]. Diagnosis changed due to Research Module. Go to Snapshot for study details. Encounter for examination fo r normal comparison and control in clinical research program 09/26/2018 07/02/2022 Overview: DO NOT DELETE - [facility] SY Study: Project # [id number], Petroleum Geologist: Gennaro Scott, MS, MPH. SUMMARY: Goal: Establish [...] contact study staff at ; after hours Petroleum Geologist via the [facility] hospital dedicated owner operator . - Please contact study team before resolving/deleting from patients problem list. Study phone number: [phone]. Diagnosis changed due to Research Module. Go to Snapshot for study details. documented as of this encounter (statuses as of 04/12/2024) Immunizations Name Administration Dates Next Due COVID-19, MRNA-LNP, 23-24, P F, 50 MCG/0.5 mL, 12 YRS AND ABOVE, IM (MODERNA-Spikevax) 10/05/2023 Pneumococcal Conjugate Vacc, 13 Valent (Prevnar) 08/16/2019 Pneumococcal Conjugate Vacci ne, 20-valent ([id number]) 02/26/2023 Pneumococcal Polysaccharide PPV23 (Pneumovax) 08/01/2017 Season [...] Sign Reading Time Taken Comments Blood Pressure 118/64 04/12/2024 11:33 AM EDT Pulse 84 04/12/2024 11:33 AM EDT Temperature 36.9 C (98.4 F) 04/12/2024 11:33 AM E DT Respiratory Rate 18 04/12/2024 11:33 AM EDT Oxygen Saturation - - Inhaled Oxygen Concentration - - Weight 69.9 kg (154 lb) 04/12/2024 11:33 AM EDT Height 167.6 cm (5' 6") 04/12/2024 11:33 AM EDT Body Mass Index 24.86 04/12/2024 11:33 AM EDT documented in this encounter Progress Notes * Timmy Meyer MD - 04/12/2024 12:20 PM EDT SUBJECTIVE: Emmanuelle Walker is a 73 year old female. Chief Complaint Patient presents with Follow Up Pt here for 6 month follow up, states she has continued pain on R side of face that started after having shingles. Pt woke 3 days ago with what she thought was insect bites however now they are blistering on R arm. Pt also states she is starting to have back pain with certain ROM, states it is worsening HPI: Emmanuelle is a very pleasant 73 year old female here for a 6 month follow up. She continues to have intermittent facial pain, but only when she uses water on her face or physically touches her face. Shehas post-herpetic neuralgia of the right side of her face and has been on Lyrica 75 mg bid for the past year or so with very good results. She doesn't have any pain when her face lays on the pillow, e tc. She has a video visit set up with neurology in May to follow up with them, however she will beaway and need to cancel it. I don't think there would be any utility in the visit anyhow. I am going to increase her Lyrica and monitor symptoms. She is in agreement. In addition, she several vesicular lesions on her right forearm that are in a dermatomal pattern. They "burn." Her other medical problems are all stable. She does have chronic back pain. Patient Active Problem List Diagnosis Acquired hypothyroidism Dyslipidemia HTN, goal below 130/80 Depression with anxiety Gastroesophageal reflux disease without esophagitis Chronic insomnia Type 2 diabetes mellitus with hemoglobin A1c goal of less than 8.0% (HCC) Chronic kidney disease, stage 3a (HCC) Post [...] 0.1 % Nasal Solution (Astelin) Administer 1 [place] into nostril in the morning and 1 [place] before bedtime. 30 mL 12 Omeprazole 40 MG Oral Capsule Delayed Release (PriLOSEC) TAKE 1 CAPSULE IN THE MORNING 90 Capsule 3 Oyjnkhvf-Dqvlhlgjx-OU 3.5-96060-2 Otic Solution Administer 4 Drops into ears in the morning and 4 Drops at noon and 4 Drops before bedtime. To affected ear, for 10 days.. 10 mL 2 PARoxetine HCl 10 MG Oral Tablet (pAXil) [...] morning and 1 Capsule beforebedtime. 60 Capsule 11 valACYclovir HCl 1 GM Oral Tablet (Valtrex) Take 1 Tablet by mouth in the morning and 1 Tablet at noon and 1 Tablet before bedtime. Do all this for 7 days. For 7 days for shingles. 21 Tablet 0 No current facility-administered medications for this visit. Allergy: Review of patient's allergies indicates: Allergen Reactions Roy-2 Inhibitors Hives and swelling Sulfa Antibiotics OBJECTIVE: BP 118/64 | Pulse 84 | Temp 36.9 C (98.4 F) (Tympanic) | Resp 18 | Ht 1.676 m (5' 6") | Wt 69.9kg (154 lb) | BMI 24.86 kg/m | BSA 1.8 m Gen: aao x 3, nad ASSESSMENT AND PLAN: (B02.29) Post herpetic neuralgia (primary encounter diagnosis) Plan: Pregabalin 100 MG Oral Capsule (Lyrica) -increase Lyrica to 100 mg bid (B00.9) Herpetic lesion Plan: valtrex x 1 week (E03.9) Acquired hypothyroidism Plan: TSH WITH FREE T4 IF INDICATED -clinically euthyroid (E78.5) Dyslipidemia Plan: continue statin (E11.9) Type 2 diabetes mellitus with hemoglobin A1c goal of less than 8.0% (HCC) Plan: HEMOGLOBIN A1C -stable (I10) HTN, goal below 130/80 Plan: stable (K21.9) Gastroesophageal reflux disease without esophagitis Plan: stable (N18.31) Chronic kidney disease, stage 3a (HCC) Plan: stable (F51.04) Chronic insomnia Plan: stable (F41.8) Depression with anxiety Plan: stable Follow up in 6 month(s). No other complaints were offered at this time. Timmy Meyer MD documented in this encounter Nursing Notes * Candice Mays LPN - 04/12/2024 11:30 AM EDT The patient has been properly identified by confirmation of name and date of . Chief Complaint Patient presents with Follow Up Pt here for 6 month follow up, states she has continued pain on R side of face that started after having shingles. Pt woke 3 days ago with what she thought was insect bites however now they are blistering on R arm. Pt also states she is starting to have back pain with certain ROM, states it is worsening documented in this encounter Plan of Treatment Upcoming Encounters Date Type Department Care Team (Late st Contact Info) Description 05/31/2024 11:20 AM EDT Telemedicine Neurology [address] [place] [phone] Lashae Rojo, DO [address] [facility] [place] [address] 10/23/2024 11:40 AM EST Office Visit Family Practice [facility] [address] [place] [address] Timmy Meyer MD [address] [place] [address] 03/06/2025 11:00 AM EDT Nurse Only Ancillary [facility] [address] [place] [address] [place], Nurse Annual Wellness Carleen [address] [place] [address] Health Maintenance Due Date Last Done Comments Hepatitis C Screening 1970 DTaP,Tdap,and Td Vaccines (1 - Tdap) 1971 Cologuard 1997 Fecal Occult Blood Test 1997 Sigmoidoscopy 1997 Zoster Vaccines (3 of 3) 08/22/2020 020, 06/27/2020, 04/12/2020, Additional history exists TSH 11/18/2023 11/18/2022, 11/18/2021 HbA1c 12/23/2023 06/22/2023, 11/01, 11/18/2021 GFR 01/21/2024 04/12/2024, 07/03, 06/22/2023, Additional history exists COVID-19 Vaccine ( - season) 2024 10/05/2023, 10/04/2021, 01/07/2021, Additional history exists Diabetic Eye Exam 03/31/2024 03/31/2023, 06/22/2022 Albumin/Creatinine Ratio 06/22/2024 06/22/2023, 0606/2022 CKD HGB USE SMARTSET 23521 06/22/2024 06/22/2023, CKD PHOS USE SMARTSET 79318 06/22/2024 06/22/2023 Colonoscopy 09/20/2024 09/20/2014 Colorectal Cancer [...] Herpes zoster with other nervous system complications Herpetic lesion Herpes simplex without mention of complication Acquired hypothyroidism Unspecified hypothyroidism Dyslipidemia Other and unspecified hyperlipidemia Type 2 diabetes mellitus with hemoglobin A1c goal of less than 8.0% (HCC) HTN, goal below 130/80 Unspecified essential hypertension Gastroesophageal reflux disease without esophagitis Esophageal reflux Chronic kidney disease, stage 3a (HCC) Chronic insomnia Insomnia, unspecified Depression with anxiety Dysthymic disorder documented in this encounter Care Teams [employer] Sales Consultant Relationship Specialty Start Date End Date Timmy Meyer MD [address] [place] [address] PCP - General Family Medicine 11/18/21 documented as of this encounter
--- OUTSIDE RECORDS SUMMARY | 2024-09-16 11:06 | External Medical Summary | Summary of Care ---
Author Name Unknown Organization [facility] Address [address] [place] [address] Phone [phone] Care Team Providers Care Mediation Commissioner Name Role Phone Praveen Ramirez MD Primary Care Provider [phone] Reason for Visit * Reason Onset Date Comments Medication Refill 05/09/2024 Encounter Details Date Type Department Care Team (Late st Contact Info) Description 05/09/2024 Refill Family Practice [facility] [address] [place] [address] Praveen Ramriez MD [address] [place] [id number] Type 2 diabetes mellitus with hemoglobin A1c goal of less than 8.0% ([facility])* Allergies Active Allergy Reactions Criticality Noted Date Comments Roy-2 Inhibitors 05/13/2006 Hives and swelling Sulfa Antibiotics 11/18/2021 documented as of this encounter (statuses as of 05/11/2024) Medications Medication Sig Dispensed Refills Start Date End Date Status Venlafaxine HCl ER 150 MG Oral Capsule Extended Release 24 Hour (Effexor XR) Take 1 Capsule by mouth in the morning and 1 Capsule in the evening. Takes 2 daily. 180 Capsule 3 06/02/2023 Active Azelastine HCl 0.1 % Nasal Solution (Astelin) Administer 1 [place] into nostril in the morning and 1 [place] before bedtime. 30 mL 12 06/11/2023 Active Omeprazole 40 MG Oral Capsule Delayed Release (PriLOSEC) TAKE 1 CAPSULE IN THE MORNING 90 Capsule 3 06/29/2023 Active Neomycin-Polymyx in-HC 3.5-21819-5 Otic Solution Administer 4 Drops into ears [...] every morning. 90 Tablet 1 05/11/2024 Active metFORMIN HCl 1000 MG Oral Tablet (Glucophage) Take by mouth 1 Tablet 2 times a day with morning and evening meals . 360 Tablet 3 04/21/2022 4 Discontinue d(Refill) documented as of this encounter (statuses as of 05/11/2024) Active Problems Problem Noted Date Diagnosed Date [...] as of this encounter (statuses as of 05/11/2024) Resolved Problems Problem Noted Date Diagnosed Date Resolved Date Encounter for examination fo r normal comparison and control in clinical research program 09/26/2018 06/03/2020 Overview: DO NOT DELETE [facility] DETECT Study: Project # [id number], Distribution Associate: Delfino Sherman, PhD. SUMMARY: Goal: Establish test [...] contact study staff at ; after hours Distribution Associate via the [facility] hospital picker machine operator . Please contact study team before resolving/deleting from patients problem list. Study phone number: [phone]. Diagnosis changed due to Research Module. Go to Snapshot for study details. Encounter for examination fo r normal comparison and control in clinical research program 09/26/2018 07/02/2022 Overview: DO NOT DELETE - [facility] DETECT Study: Project # [id number], Distribution Associate: Gennaro Scott, MS, MPH. SUMMARY: Goal: Establish [...] contact study staff at ; after hours Distribution Associate via the [facility] hospital picker machine operator . - Please contact study team before resolving/deleting from patients problem list. Study phone number: [phone]. Diagnosis changed due to Research Module. Go to Snapshot for study details. documented as of this encounter (statuses as of 05/11/2024) Immunizations Name Administration Dates Next Due COVID-19, MRNA-LNP, 23-24, P F, 50 MCG/0.5 mL, 12 YRS AND ABOVE, IM (MODERNA-Spikevax) 10/05/2023 Pneumococcal Conjugate Vacc, 13 Valent (Prevnar) 08/16/2019 Pneumococcal Conjugate Vacci ne, 20-valent ([id number]) 02/26/2023 Pneumococcal Polysaccharide PPV23 (Pneumovax) 08/01/2017 Season [...] Telephone Encounter - Praveen Ramirez MD - 05/11/2024 4:19 PM EDTSigned Prescriptions: Disp Refills metFORMIN HCl 1000 MG Oral Tablet (Glucoph*90 Tab*1 Sig: Take 1 Tablet by mouth every morning. Authorizing Provider: PRAVEEN RAMIREZ * Telephone Encounter - Damon Stevens [facility] - 05/10/2024 4:36 PM EDT Pending Prescriptions: Disp Refills metFORMIN HCl 1000 MG Oral Tablet (Glucoph*90 Tab*1 Sig: Take 1 Tablet by mouth every morning. * Telephone Encounter - Damon Stevens [facility] - 05/10/2024 4:12 PM EDT Patients last GFR on 04/12/2024 was 46ml/min. Based on this would recommend reducing the Metformin dose to 1g qd and repeating A1c and BMP in 3-6. Pended with reduced dose. Please approve if appropriate and route to me to inform patient of change. Thank you, Epifanio Stevens, PharmD Clinical Pharmacist [facility] ([facility]) 05/10/24 4:34 PM [phone] documented in this encounter Plan of Treatment Upcoming Encounters Date Type Department Care Team (Late st Contact Info) Description 10/23/2024 11:40 AM EST Office Visit Family Practice [facility] [address] [place] [address] Praveen Ramirez MD [address] [place] [address] 03/06/2025 11:00 AM EDT Nurse Only Ancillary [facility] [address] [place] [address] [facility], Nurse Annual Wellness [facility] [address] [place] [address] Scheduled Orders Name Type Priority Associated Diagnoses Orde r Schedule BASIC METABOLIC PANEL Lab Routine Type 2 diabetes mellitus with hemoglobin A1c goal of less than 8.0% (HCC) Expected: 05/24/2024 (Approximate), Expires: 05/11/2025 HEMOGLOBIN A1C Lab Routine Type 2 diabetes mellitus with hemoglobin A1c goal of less than 8.0% (HCC) Expected: 05/24/2024 (Approximate), Expires: 05/11/2025 Health Maintenance Due Date Last Done Comments Hepatitis C Screening 1970 DTaP,Tdap,and Td Vaccines (1 - Tdap) 1971 Cologuard 1997 Fecal Occult Blood Test 1997 Sigmoidoscopy 1997 Zoster Vaccines (3 of 3) 08/22/2020 020, 06/27/2020, 04/12/2020, Additional history exists COVID-19 Vaccine (5 - 2022- season) 2024 10/05/2023, 10/04/2021, 01/07/2021, Additional history exists Diabetic Eye Exam 03/31/2024 03/31/2023, 06/22/2022 *BASELINE EKG FOR HTN 04/14/2024 Albumin/Creatinine Ratio 06/22/2024 06/22/2023, 06/06/2022 CKD HGB USE SMARTSET 79785 06/22/2024 06/22/2023, CKD PHOS USE SMARTSET 25390 06/22/2024 06/22/2023 Influenza Vaccine (FLU shot) (#1) [...] as of this encounter Visit Diagnoses Diagnosis Type 2 diabetes mellitus with hemoglobin A1c goal of less than 8.0% (HCC)- Primary documented in this encounter Care Teams Mediation Commissioner Relationship Specialty Start Date End Date Praveen Ramirez MD [address] [place] [address] PCP - General Family Medicine 11/18/21 documented as of this encounter
[2024-09-16] MEDS: PREGABALIN 25 MG CAP PO SCH (11:47)
[2024-09-16 12:01] LABS: Base Excess VBG -25.1 mEq/L; HCO3 VBG 4 mmol/L; Oxygen Saturation VBG 89.1 %; PCO2 VBG 14 mmHg (38-50); PO2 VBG 60 mmHg; pH VBG 7.03 (7.36-7.41)
[2024-09-16 12:03] LABS: Hematocrit (blood only) 29.5 % (37.0-47.0); Hemoglobin 8.4 g/dl (12.0-16.0)
[2024-09-16 12:27] LABS: BUN Creatinine Ratio 8.1 (10-20); Calcium 7.7 mg/dl (8.6-10.3); Creatinine Clr Calc Pharmacy 5.9 ml/min; Potassium 5.5 mmol/L (3.5-5.1)
--- NOTE | 2024-09-16 12:57 | CT Scan Report ---
ABDOMEN AND PELVIS CT WITHOUT CONTRAST CT DOSE: 2402.02 mGy.cm HISTORY: Acute generalized abdominal pain with GI bleed abd pain gi bleed TECHNIQUE: Multiaxial CT images of the abdomen and pelvis were performed without contrast. A dose lo wering technique was utilized adhering to the principles of ALARA. COMPARISON STUDY: CT lumbar spine 10/03/2008 FINDINGS: Cardiomegaly with coronary artery calcifications. Partially imaged central venous catheter distal tip terminates in the superior aspect of the right atrium. Small pleural effusions with bibasi lar mucous plugging, intralobular septal thickening and patchy groundglass and consolidative opacitie s. There is no pneumoperitoneum. The study is degraded by respiratory motion artifact. The unenhanced spleen, pancreas and adrenal glands are unremarkable. Possible cholelithiasis without CT evidence of acute cholecystitis. Hepatomegaly with hepatic steatosis. Unremarkable left kidney. Mo derate right-sided hydronephrosis with an obstructing 1.8 x 1.3 x 1.7 cm calculus of the ureteropelvi c junction. Reactive perinephric inflammatory stranding. Decompressed bladder with English catheter. Pe lvic floor relaxation. Subcentimeter uterine calcification. Atherosclerosis of the aorta without aneu rysm. No lymphadenopathy. Small hiatal hernia. No bowel stricture in or bowel wall thickening. Rectal catheter in place. Coloni c diverticulosis. Normal appendix. 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 No acute fracture. IMPRESSION: 1. Moderate right-sided hydronephrosis secondary to an obstructing 1.8 cm calculus of the ureteropelv ic junction. 2. Small pleural effusions with bibasilar opacities suggestive of pneumonia versus aspiration pneumon itis. 3. No bowel obstruction or bowel wall thickening. 4. Hepatic steatosis. 5. Colonic diverticulosis. 6. Additional findings as above. ACT 112: Negative or not required by law. The above report was generated using voice recognition software. It may contain grammatical, syntax o r spelling errors. Electronically signed by: Amari Ramey M.D. 09/16/2024 12:54 PM
--- NOTE | 2024-09-16 13:01 | CT Scan Report ---
CT head/brain wo con CLINICAL HISTORY: 73 years-old Female with juarez, slurred speech. Acute headache with strokelike sympto ms TECHNIQUE: Multiple axial CT images of the head were obtained without contrast. A dose lowering tech nique was utilized adhering to the principles of ALARA. COMPARISON: CT soft tissue neck of same day FINDINGS: No acute intracranial hemorrhage, midline shift, intracranial mass, hydrocephalus, territorial ischem ia or abnormal extra-axial collection. Involutional changes with white matter hypodensities suggestiv e of chronic microvascular ischemic disease. The calvarium is intact. Partially imaged mucosal thickening of the inferior maxillary sinuses. The mastoid air cells are clear. Prior bilateral lens repair. IMPRESSION: No acute intracranial abnormality. ACT 112: Negative or not required by law. The above report was generated using voice recognition software. It may contain grammatical, syntax o r spelling errors. Electronically signed by: Amari Ramey M.D. 09/16/2024 12:59 PM
[2024-09-16] MEDS: SODIUM BICARB 8.4% INJ 50 MEQ/50 ML SYR IV STA ×2 (13:02→16:03)
--- NOTE | 2024-09-16 13:05 | CT Scan Report ---
CT soft tissue neck wo con HISTORY: 73 years-old Female sore throat dysphagia with sore throat, headache and stroke like sympto ms. COMPARISON: Head CT of same day TECHNIQUE: Multiple axial CT images of the soft tissues of the neck were obtained without IV contrast . A dose lowering technique was used consistent with the principals of OPAL. FINDINGS: Right IJ dual-lumen hemodialysis catheter in place. Partially imaged polypoid mucosal thickening of t he maxillary sinuses measuring up to 3 cm on the right. No acute inflammatory changes, fluid collecti ons or lymphadenopathy. The glottis and subglottic airway appears unremarkable. No dominant thyroid n odule. No pneumothorax. No acute fracture. Degenerative changes of the cervical spine including sever e disc space narrowing at C5-C6 and C6-C7 with multilevel neural foraminal narrowing. No acute intrac ranial abnormality. IMPRESSION: 1. Mildly motion degraded exam. No acute inflammatory changes or fluid collections. 2. Patent airway. 3. Partially imaged right IJ central venous catheter. 4. Polypoid mucosal thickening of the maxillary sinuses. ACT 112: Negative or not required by law. The above report was generated using voice recognition software. It may contain grammatical, syntax o r spelling errors. Electronically signed by: Amari Ramey M.D. 09/16/2024 1:02 PM
[2024-09-16] MEDS: HEPARIN SOD (PORCINE) 1000 UNIT/ML IV ONE (15:23)
[2024-09-16] MEDS: SODIUM BICARBONATE 8.4% 150 MEQ in WATER, STERILE 1,000 ML IV SCH (16:03)
[2024-09-16] MEDS: HEPARIN SOD (PORCINE) 1000 UNIT/ML IV SCH (16:04)
[2024-09-16] MEDS ORDERED: STAT IV Infusion **Titration per Protocol STA (16:22)
[2024-09-16] MEDS: ALBUMIN 5% 250 ML IV ONE (16:56)
[2024-09-16] MEDS: NOREPINEPHRINE/D5W 4 MG/250 ML PLCT IV SCH (16:57)
[2024-09-16] MEDS: NOREPINEPHRINE/D5W 4 MG/250 ML IV ONE (17:00)
--- NOTE | 2024-09-16 18:35 | Urology Consultation ---
Date of Consultation September 16, 2024 Assessment & Plan (1) Stone in renal pelvis: (2) Severe sepsis: Plan 73-year-old female who was transferred from an outside hospital with reports of a UTI. White count of 40, creatinine of [address] scan showing a 1.8 cm right renal pelvis stone with obstruction. Proceed emergently to the OR for cystoscopy with right retrograde pyelogram right ureteral stent placement Risk and benefits discussed and consent obtained. Risks including but not limited to pain, bleeding, infection, injury to the ureters, inability to place stent, anesthesia risk, , need for nephrostomy tube which would require transfer, need for additional procedures. Patient marked Patient already on antibiotics History of Present Illness Attending Physician: Dai Schaefer MD History of Present Illness 73-year-old female who was reportedly transferred here for a UTI based on her chart. Patient is currently slightly hypotensive but otherwise has stable vitals. Labs today showed a leukocytosis of 40.3, hemoglobin of 8.4, creatinine of 8.19, potassium of 5.5, lactate of 4.9. A CT scan was performed at 644 this morning which I independently reviewed and shows a large 1.8 cm right renal pelvis stone causing hydronephrosis. There is a English catheter in the bladder. I received a routine consult for this patient this evening via our consultation service messaging system. Patient is currently on cefepime. Allergies Allergy/AdvReac Type Severity Reaction Status Date / Time Sulfa (Sulfonamide Allergy Unknown Unknown Verified 09/16/24 05:57 Antibiotics) Home Medications Medication Instructions Recorded Confirmed Type atorvastatin 20 mg tablet 20 mg DAILY 09/16/24 09/16/24 History hydrochlorothiazide 12.5 mg tablet 12.5 mg DAILY 09/16/24 09/16/24 History metformin 1,000 mg tablet 1,000 mg DAILY 09/16/24 09/16/24 History paroxetine HCl 10 mg tablet 10 mg PO DAILY 09/16/24 09/16/24 History pregabalin 100 mg capsule 100 mg AMHS 09/16/24 09/16/24 History venlafaxine 150 mg 150 mg PO DAILY 09/16/24 09/16/24 History capsule,extended release 24 hr Patient History Medical History (Updated 09/16/24 @ 14:15 by Janett Faulkner MD, PhD) Hypothyroidism HTN (hypertension) Diabetes Family History (Updated 09/16/24 @ 13:46 by Janett Faulkner MD, PhD) Other Diabetes Heart disease Social History Smoking Status: Never smoker Second Hand Exposure: No; Do You Dip or Chew Tobacco: No; Hx Alcohol Use: No Hx Substance Use: No Beliefs That Will Affect Care: None Current Living Situation: Spouse Other Information That Helps Us Care for You: No Feels Safe at Home: Yes Safety Concerns: Feels Safe At This Time Assistive Devices: Other Assistive Devices Comment: reading glasses Physical Exam Physical Exam: General: Alert and oriented, no acute distress HEENT: Normocephalic, mucous membranes moist Pulmonary: Nonlabored respirations Abdomen: Nondistended Extremities: Moves all 4 spontaneously Neuro: No gross deficits Skin: Warm, dry, no rashes noted Results & Data Vital Signs (Past 12 Hours) Vital Signs Temp Pulse Pulse Pulse Resp BP Pulse Ox 09/16/24 17:30 37.2 C 91 H 21 100 09/16/24 17:30 115/50 L 09/16/24 17:30 92 H 115/50 L 09/16/24 17:03 37.1 C 92 H 22 100 09/16/24 17:00 113/52 L 09/16/24 17:00 92 H 113/52 L 09/16/24 16:57 37.0 C 92 H 21 99 09/16/24 16:43 99/49 L 09/16/24 16:39 36.9 C 97 H 25 H 98 09/16/24 16:30 95/48 L 09/16/24 16:30 36.9 C 97 H 24 97 09/16/24 16:30 99 H 95/48 L 09/16/24 16:15 93/47 L 09/16/24 16:15 99 H 93/47 L 09/16/24 16:12 36.8 C 97 H 24 98 09/16/24 16:00 36.7 C 98 H 24 98 09/16/24 16:00 99 H 96/48 L 09/16/24 15:49 92/48 L 09/16/24 15:45 99 H 92/46 L 09/16/24 15:42 36.6 C 100 H 24 97 09/16/24 15:30 102 H 91/41 L 09/16/24 15:03 36.4 C L 101 H 24 100 09/16/24 15:01 100 H 118/53 L 09/16/24 15:01 118/53 L 09/16/24 14:51 36.4 C L 100 H 25 H 99 09/16/24 14:50 36.4 C L 100 H 09/16/24 14:47 116/50 L 09/16/24 14:39 36.4 C L 100 H 25 H 99 09/16/24 14:06 36.3 C L 101 H 28 H 100 09/16/24 14:00 118/59 L 09/16/24 13:33 36.4 C L 106 H 28 H 100 09/16/24 13:00 36.5 C 108 H 28 H 99 09/16/24 12:51 128/52 L 09/16/24 12:51 36.5 C 110 H 26 H 98 09/16/24 12:15 138/55 L 09/16/24 12:06 110 H 29 H 98 09/16/24 12:03 109 H 30 H 99 09/16/24 12:00 130/57 L 09/16/24 11:57 111 H 27 H 99 09/16/24 11:45 136/55 L 09/16/24 11:36 27 H 100 09/16/24 11:15 105 H 25 H 99 09/16/24 11:06 105 H 29 H 98 09/16/24 11:00 121/64 09/16/24 10:57 102 H 27 H 98 09/16/24 10:45 103 H 22 99 09/16/24 10:45 109/53 L 09/16/24 10:30 102 H 25 H 99 09/16/24 10:15 130/52 L 09/16/24 08:31 108 H 09/16/24 07:30 09/16/24 07:29 87 20 93 09/16/24 07:15 33.9 C L O2 Del Method O2 Flow Rate 09/16/24 17:30 09/16/24 17:30 09/16/24 17:30 09/16/24 17:03 09/16/24 17:00 09/16/24 17:00 09/16/24 16:57 09/16/24 16:43 09/16/24 16:39 09/16/24 16:30 09/16/24 16:30 09/16/24 16:30 09/16/24 16:15 09/16/24 16:15 09/16/24 16:12 09/16/24 16:00 09/16/24 16:00 09/16/24 15:49 09/16/24 15:45 09/16/24 15:42 09/16/24 15:30 09/16/24 15:03 09/16/24 15:01 09/16/24 15:01 09/16/24 14:51 09/16/24 14:50 09/16/24 14:47 09/16/24 14:39 09/16/24 14:06 09/16/24 14:00 09/16/24 13:33 09/16/24 13:00 09/16/24 12:51 09/16/24 12:51 09/16/24 12:15 09/16/24 12:06 09/16/24 12:03 09/16/24 12:00 09/16/24 11:57 09/16/24 11:45 09/16/24 11:36 09/16/24 11:15 09/16/24 11:06 09/16/24 11:00 09/16/24 10:57 09/16/24 10:45 09/16/24 10:45 09/16/24 10:30 09/16/24 10:15 09/16/24 08:31 09/16/24 07:30 Nasal Cannula 3 09/16/24 07:29 Room Air 09/16/24 07:15 PG Care Time/CCT Total # of Minutes Spent Total Time Spent with Patient: Total time spent is greater than 50% in coordination of care (as documented) at patient's floor/unit and/or counseling patient: Coding Level of Care Code 72057 INT INP/OBS CARE 2/55MIN Diagnoses Stone in renal pelvis N20.0 Severe sepsis A41.9; R65.20
[2024-09-16] MEDS ORDERED: fentaNYL citrate PF 100 MCG/2 ML VIAL ONE (18:36)
[2024-09-16] MEDS ORDERED: PROPOFOL IV EMULSION 10 MG/ML 20 ML VIAL IV ONE ×2 (18:36→18:38)
[2024-09-16] MEDS ORDERED: MIDAZOLAM HCL 1 MG/ML 2ML VIAL ONE (18:36)
--- NOTE | 2024-09-16 18:42 | Anesthesiology Consultation ---
Date of Service September 16, 2024 Assessment & Plan (1) Encounter for pre-operative examination: Chart Review Chart Review: Patient NOT seen in Pre Admission Testing Consults Requested none Additional Notes emergent procedure History Height/Weight Height: 5 ft 6 in Weight: 70.1 kg Allergies Allergy/AdvReac Type Severity Reaction Status Date / Time Sulfa (Sulfonamide Allergy Unknown Unknown Verified 09/16/24 05:57 Antibiotics) Medications Home Medications Medication Instructions Recorded Confirmed Last Taken atorvastatin 20 mg tablet 20 mg DAILY 09/16/24 09/16/24 Unknown hydrochlorothiazide 12.5 mg tablet 12.5 mg DAILY 09/16/24 09/16/24 Unknown metformin 1,000 mg tablet 1,000 mg DAILY 09/16/24 09/16/24 Unknown paroxetine HCl 10 mg tablet 10 mg PO DAILY 09/16/24 09/16/24 Unknown pregabalin 100 mg capsule 100 mg AMHS 09/16/24 09/16/24 Unknown venlafaxine 150 mg 150 mg PO DAILY 09/16/24 09/16/24 Unknown capsule,extended release 24 hr Active Medications Generic Name Dose Route Start Last Admin Trade Name Freq PRN Reason Stop Dose Admin Pantoprazole Sodium 40 mg/ 100 mls @ 20 mls/hr 09/16/24 07:00 09/16/24 18:30 Dextrose IV 10/16/24 06:59 Not Given Q5H AYE 8 MG/HR Sodium Bicarbonate 150 meq/ 1,150 mls @ 75 mls/hr 09/16/24 08:30 09/16/24 12:00 Dextrose IV 10/16/24 08:29 75 mls/hr .[id number] AYE Infusion Norepinephrine Bitartrate 4 mg in 250 mls @ 13.144 mls/hr 09/16/24 16:30 09/16/24 16:57 Levophed/D5w IV 10/16/24 16:29 0.08 mcg/kg/min .Q19H2M AYE 21 mls/hr Administration Protocol 0.05 MCG/KG/MIN Albumin Human 250 mls @ 50 mls/hr 09/16/24 16:33 09/16/24 16:56 Albumin 5% IV 09/16/24 21:32 50 mls/hr ONE ONE Administration Insulin Aspart 0 units 09/16/24 05:15 09/16/24 17:10 Insulin Aspart Per Unit Charge SC 10/16/24 05:14 Not Given ACHS AYE Paroxetine HCl 10 mg 09/16/24 09:00 09/16/24 07:52 Paroxetine Hcl 10 Mg Tab PO 10/16/24 08:59 10 mg DAILY AYE Administration Pregabalin 25 mg 09/16/24 09:00 09/16/24 11:47 Pregabalin 25 Mg Cap PO 10/16/24 08:59 Not Given DAILY AYE Venlafaxine HCl 37.5 mg 09/16/24 09:00 09/16/24 07:52 Venlafaxine Hcl Xr 37.5 Mg Capxr PO 10/16/24 08:59 37.5 mg DAILY AYE Administration Past Medical History Medical History Hypothyroidism HTN (hypertension) Diabetes Past Family History Family History Other Diabetes Heart disease Social History Smoking Status: Never smoker Do You Dip or Chew Tobacco: No Hx Alcohol Use: No Hx Substance Use: No Physical Exam Vital Signs Last Vital Signs Temp 99.0 F 09/16/24 17:30 Pulse 91 H 09/16/24 17:30 Resp 21 09/16/24 17:30 BP 115/50 L 09/16/24 17:30 Pulse Ox 100 09/16/24 17:30 O2 Del Method Nasal Cannula 09/16/24 07:30 O2 Flow Rate 3 09/16/24 07:30 Testing Laboratory Results 09/16/24 11:42 09/16/24 11:42 Blood Type AB Positive 09/16/24 06:49 Antibody Screen NEGATIVE 09/16/24 06:49 09/16/24 09/16/24 09/16/24 17:09 11:29 11:27 POC Glucose 120 H 336 H* 342 H*
[2024-09-16] MEDS: DIATRIZOATE MEGLUMINE 30% 100ML VIAL INSTIL ONE (19:30)
--- NOTE | 2024-09-16 19:33 | Operative Report ---
PG Post Operative Report Pre & Post Diagnosis Operation Date: 09/16/24 19:00 Pre-Op Diagnosis: Stone in renal pelvis, severe sepsis Post-Op Diagnosis: Stone in renal pelvis, severe sepsis I identified the patient and participated in the time-out.: Yes Procedure Operation Date: 09/16/24 19:00 Actual Procedures p Cystoscopy, Right Retrograde Pyelogram with radiographic interpretation, Insertion Right Ureteral Stent(Right) - Gregorio Davila MD Surgeon Gregorio Davila MD [employer] Blind Machine Operator None Estimated Blood Loss 0 Findings See Below Large right renal pelvis stone. Stent in appropriate position in kidney confirmed fluoroscopically. Patient tolerated the procedure well from an anesthesia standpoint. Specimens None Drains 1. 6 Libyan by 26 cm right ureteral stent 2. 16 Libyan English catheter with 10 cc in balloon Anesthesia Type MAC Complications none Indications 73-year-old female with a 1.8 cm right renal pelvis stone and severe sepsis. White blood count of 40, creatinine over 8 in outside labs showing a UTI. Taken emergently for above-noted procedure. Description of Procedure After informed consent was obtained, the patient was transported operative suite. MAC anesthesia was induced. The patient was placed in dorsolithotomy position prepped and draped in a sterile fashion. They received preoperative cefepime for antibiotic prophylaxis. An appropriate surgical timeout was performed. A 22 Libyan rigid scope was inserted per urethra into the bladder. Chanel cystoscopy revealed no stones or lesions. I turned my attention the right ureteral orifice and intubated this with a 5 Libyan open-ended catheter. A right retrograde pyelogram was shot which showed a very large stone in the renal pelvis and contrast moving past the stone. A sensor wire was advanced into the kidney and confirmed fluoroscopically. A 6 Libyan by 26 cm right ureteral stent was deployed with a good proximal coil in the renal pelvis beyond the stone and a good distal coil noted in the bladder, confirmed fluoroscopically and under direct visualization, respectively. The bladder was emptied and the scope was removed. This concluded the end of the case. Patient tolerated procedure well from an anesthetic perspective. All counts were correct at the end of the case. I was present, scrubbed, and actively participated for the entirety of the procedure. I attest to the content of the Intraoperative Record and any orders documented therein. Any exceptions are noted below.
[2024-09-16] MEDS ORDERED: ePHEDrine sulfate 50 MG/ML AMP IV PRN (19:43)
[2024-09-16] MEDS ORDERED: ATROPINE SULFATE 0.1 MG/ML 10ML SYR IV PRN (19:43)
--- NOTE | 2024-09-16 20:06 | Anesthesiology Progress Note ---
Date of Service September 16, 2024 Anesthesia Post Procedure Vital Signs Vital Signs: Temp Pulse Pulse Pulse Resp BP BP 09/16/24 19:52 99.3 F 101 H 22 120/55 L 09/16/24 19:47 99.1 F 101 H 22 122/56 L 09/16/24 19:37 99.3 F 102 H 9 L 139/54 L 09/16/24 18:15 99.1 F 92 H 131/48 L 09/16/24 18:00 93 H 114/49 L 09/16/24 17:30 99.0 F 91 H 21 09/16/24 17:30 115/50 L 09/16/24 17:30 92 H 115/50 L 09/16/24 17:03 98.8 F 92 H 22 09/16/24 17:00 113/52 L 09/16/24 17:00 92 H 113/52 L 09/16/24 16:57 98.6 F 92 H 21 09/16/24 16:43 99/49 L 09/16/24 16:39 98.4 F 97 H 25 H 09/16/24 16:30 95/48 L 09/16/24 16:30 98.4 F 97 H 24 09/16/24 16:30 99 H 95/48 L 09/16/24 16:15 93/47 L 09/16/24 16:15 99 H 93/47 L 09/16/24 16:12 98.2 F 97 H 24 09/16/24 16:00 98.1 F 98 H 24 09/16/24 16:00 99 H 96/48 L 09/16/24 15:49 92/48 L 09/16/24 15:45 99 H 92/46 L 09/16/24 15:42 97.9 F 100 H 24 09/16/24 15:30 102 H 91/41 L 09/16/24 15:03 97.5 F L 101 H 24 09/16/24 15:01 100 H 118/53 L 09/16/24 15:01 118/53 L 09/16/24 14:51 97.5 F L 100 H 25 H 09/16/24 14:50 97.5 F L 100 H 09/16/24 14:47 116/50 L 09/16/24 14:39 97.5 F L 100 H 25 H 09/16/24 14:06 97.3 F L 101 H 28 H 09/16/24 14:00 118/59 L 09/16/24 13:33 97.5 F L 106 H 28 H 09/16/24 13:00 97.7 F 108 H 28 H 09/16/24 12:51 128/52 L 09/16/24 12:51 97.7 F 110 H 26 H 09/16/24 12:15 138/55 L 09/16/24 12:06 110 H 29 H 09/16/24 12:03 109 H 30 H 09/16/24 12:00 130/57 L 09/16/24 11:57 111 H 27 H 09/16/24 11:45 136/55 L 09/16/24 11:36 27 H 09/16/24 11:15 105 H 25 H 09/16/24 11:06 105 H 29 H 09/16/24 11:00 121/64 09/16/24 10:57 102 H 27 H 09/16/24 10:45 103 H 22 09/16/24 10:45 109/53 L 09/16/24 10:30 102 H 25 H 09/16/24 10:15 130/52 L 09/16/24 08:31 108 H 09/16/24 07:30 09/16/24 07:29 87 20 09/16/24 07:15 93.0 F L 09/16/24 05:47 93.7 F L 91 H 22 09/16/24 05:37 93.7 F L 22 BP Pulse Ox O2 Del Method O2 Flow Rate 09/16/24 19:52 96 2 09/16/24 19:47 96 2 09/16/24 19:37 97 2 09/16/24 18:15 09/16/24 18:00 09/16/24 17:30 100 09/16/24 17:30 09/16/24 17:30 09/16/24 17:03 100 09/16/24 17:00 09/16/24 17:00 09/16/24 16:57 99 09/16/24 16:43 09/16/24 16:39 98 09/16/24 16:30 09/16/24 16:30 97 09/16/24 16:30 09/16/24 16:15 11/16/24 16:15 09/16/24 16:12 98 09/16/24 16:00 98 09/16/24 16:00 09/16/24 15:49 09/16/24 15:45 09/16/24 15:42 97 09/16/24 15:30 09/16/24 15:03 100 09/16/24 15:01 09/16/24 15:01 09/16/24 14:51 99 09/16/24 14:50 09/16/24 14:47 09/16/24 14:39 99 09/16/24 14:06 100 09/16/24 14:00 09/16/24 13:33 100 09/16/24 13:00 99 09/16/24 12:51 09/16/24 12:51 98 09/16/24 12:15 09/16/24 12:06 98 09/16/24 12:03 99 09/16/24 12:00 09/16/24 11:57 99 09/16/24 11:45 09/16/24 11:36 100 09/16/24 11:15 99 09/16/24 11:06 98 09/16/24 11:00 09/16/24 10:57 98 09/16/24 10:45 99 09/16/24 10:45 09/16/24 10:30 99 09/16/24 10:15 09/16/24 08:31 09/16/24 07:30 Nasal Cannula 3 09/16/24 07:29 93 Room Air 09/16/24 07:15 09/16/24 05:47 138/69 97 Room Air 09/16/24 05:37 138/69 97 Room Air Transfer of Care Handoff Completed per policy Notes Mental Status: alert / awake / arousable and participated in evaluation Patient Amnestic to Procedure: Yes Nausea / Vomiting: adequately controlled Pain: adequately controlled Airway Patency, RR, SpO2: stable & adequate BP & HR: stable & adequate Hydration State: stable & adequate Anesthetic Complications: no major complications apparent and Pt Satisfied with anesthetic care
[2024-09-16] MEDS: ICU Protocol for HYPERglycemia SCH (20:39)
[2024-09-16] MEDS: DOXYCYCLINE HYCLATE 100 MG CAP PO SCH (20:50)
[2024-09-16 23:25] LABS: BUN Creatinine Ratio 6.9 (10-20); Calcium 8.1 mg/dl (8.6-10.3); Creatinine Clr Calc Pharmacy 12.9 ml/min; Potassium 3.6 mmol/L (3.5-5.1)
[2024-09-17] MEDS: ACETAMINOPHEN 325 MG TAB PO PRN (03:09)
[2024-09-17 04:40] LABS: BUN Creatinine Ratio 7.3 (10-20); Calcium 7.8 mg/dl (8.6-10.3); Creatinine Clr Calc Pharmacy 12.1 ml/min; Potassium 3.2 mmol/L (3.5-5.1)
[2024-09-17 04:42] LABS: Basophils # (auto) 0.04 K/uL (0.00-0.20); Basophils % (auto) 0.2 %; Hematocrit (blood only) 24.1 % (37.0-47.0); Hemoglobin 7.6 g/dl (12.0-16.0); Immature Granulocytes # (auto) 0.34 K/uL (0.01-0.20); Immature Granulocytes % (auto) 1.4 %; Lymphocytes % (auto) 2.4 %; Mean Corpuscular Hemoglobin 25.2 pg (25.0-34.0); Mean Corpuscular Hgb Conc 31.5 g/dL (32.0-36.0); Mean Corpuscular Volume 80.1 fL (80.0-100.0); Mean Platelet Volume 9.7 fL (9.4-12.4); Monocytes % (auto) 3.7 %; Neutrophils # (auto) 22.72 K/uL (1.40-6.50); Neutrophils % (auto) 92.3 %; Platelet Count 320 K/uL (130-400); Polychromasia 1+; RDW Coefficient of Variation 17.4 % (11.5-14.5); RDW Standard Deviation 51.4 fL (36.4-46.3); Red Blood Count 3.01 M/uL (4.20-5.40)
[2024-09-17] MEDS: POTASSIUM CHLORIDE CRTAB 20 MEQ TABCR PO STA (05:33)
[2024-09-17] MEDS: CEFEPIME 1000MG 1,000 MG/10 ML SYR IV SCH (08:01)
--- NOTE | 2024-09-17 08:07 | Fluoroscopy Report ---
FL retrograde includes kub CLINICAL HISTORY: RIGHT STENTright-sided cystourethrogram COMPARISON STUDY: CT of same day FLUOROSCOPY TIME: 10.5 seconds FLUOROSCOPY IMAGES: 1 EXPOSURE DOSE: 1.74 mGy FINDINGS: Proximal portion of a right ureteral stent is noted with proximal portion projected over th e expected location of the superior pole right kidney. Dense focus projected over the renal pelvis ma y represent persistent UPJ calculus. The distal portion of the stent was not imaged. IMPRESSION: Fluoroscopic assistance as above. ACT 112: Negative or not required by law. Electronically signed by: Amari Ramey M.D. 09/17/2024 8:06 AM
--- NOTE | 2024-09-17 08:23 | Billing Data ---
Date of Service September 16, 2024 Coding Level of Care Code 40889 CRITICAL CARE
--- NOTE | 2024-09-17 08:24 | Critical Care Progress Note ---
Date of Service September 17, 2024 Assessment & Plan (1) Severe sepsis: (2) Acute renal failure: (3) Depression: (4) Diabetes: (5) HTN (hypertension): (6) Hypothyroidism: (7) Lactic acidosis: (8) Acute anemia: (9) Stone in renal pelvis: (10) CKD (chronic kidney disease) stage 3, GFR 30-59 ml/min: Plan Reason critically ill: direct admit with acute on chronic renal failure with severe metabolic acidosis requiring emergent hemodialysis. Neuro: Metabolic encephalopathy resolved - Hold Lyrica today given acute kidney injury, suspect we could reinitiate tomorrow Cardiac: - Shock: Resolved Resp: -Tachypnea resolved GI: -Reviewed GI notes, clear diet advance as tolerated Renal: - Acute on chronic renal failure significantly improved -Optimize electrolytes -40 mEq potassium by mouth twice today -Recheck BMP at 1800 : - UA from outside hospital consistent with UTI - follow outside hospital cultures - CT A/P with right sided hydronephrosis secondary to stone at UPJ - urology consulted for when metabolic abnormalities better managed - Follow I/O Endo: - Home metformin held - BG checks ACHS, sliding scale insulin Heme: -Anemia, continue to monitor particularly due to concern for possible GI bleed -Type and screen ordered, appears stable with no obvious GI bleeding ID: Severe sepsis - urinary source, follow outside hospital cultures. -De-escalate to Rocephin Lines/Access: peripheral IV, temporary dialysis catheter DVT ppx: [place] heparin twice daily DVT prophylaxis Disposition: Critical care needs have resolved, stable for downgrade out of ICU. Admission and Anticipated Discharge Date Admission Date: September 16, 2024 Subjective Feels significantly improved compared to yesterday. Short interval of vasoactives however this is probably discontinued. Urine output has significantly increased. Otherwise no significant complaints Physical Exam Physical Exam: General: Alert. nontoxic. Skin: Warm, dry, Head: Atraumatic Ears, nose, mouth and throat: airway patent Cardiovascular: Normal peripheral perfusion Respiratory: no respiratory distress Gastrointestinal: Non distended Musculoskeletal: No deformity Results & Data Results & Data Vital Signs (Past 12 Hours) Vital Signs Temp Pulse Pulse Resp BP BP Pulse Ox 09/17/24 07:00 37.1 C 88 21 95 09/17/24 06:30 128/52 L 09/17/24 06:30 37.2 C 88 22 97 09/17/24 06:03 37.2 C 92 H 21 98 09/17/24 06:00 125/52 L 09/17/24 06:00 37.2 C 90 21 125/52 L 97 09/17/24 05:54 37.2 C 91 H 21 97 09/17/24 05:06 37.3 C 96 H 22 91 09/17/24 05:00 122/50 L 09/17/24 05:00 37.4 C 93 H 21 112/50 L 95 09/17/24 04:42 37.4 C 92 H 21 92 09/17/24 04:30 124/50 L 09/17/24 04:27 37.4 C 98 H 21 95 09/17/24 04:00 116/53 L 09/17/24 04:00 37.5 C 103 H 26 H 94 09/17/24 04:00 37.4 C 94 H 21 116/53 L 94 09/17/24 03:30 121/49 L 09/17/24 03:30 37.6 C H 97 H 23 95 09/17/24 03:00 135/54 L 09/17/24 03:00 37.7 C H 98 H 22 95 09/17/24 03:00 37.7 C H 100 H 18 135/54 L 95 09/17/24 02:30 134/54 L 09/17/24 02:27 37.7 C H 97 H 22 96 09/17/24 02:00 134/53 L 09/17/24 02:00 37.8 C H 96 H 23 96 09/17/24 02:00 37.7 C H 96 H 24 134/53 L 96 09/17/24 01:30 131/55 L 09/17/24 01:27 37.8 C H 97 H 23 97 09/17/24 01:09 37.8 C H 100 H 27 H 97 09/17/24 01:00 135/53 L 09/17/24 01:00 37.8 C H 96 H 25 H 135/53 L 98 09/17/24 00:57 37.8 C H 97 H 22 98 09/17/24 00:30 136/52 L 09/17/24 00:30 37.9 C H 99 H 26 H 98 09/17/24 00:03 37.9 C H 99 H 25 H 97 09/17/24 00:00 142/56 H 09/17/24 00:00 142/56 H 09/17/24 00:00 37.9 C H 99 H 27 H 142/56 H 97 09/16/24 23:53 98 H 09/16/24 23:30 138/55 L 09/16/24 23:21 37.9 C H 97 H 24 96 09/16/24 23:00 37.9 C H 98 H 24 134/54 L 96 09/16/24 22:30 37.9 C H 99 H 130/55 L 95 09/16/24 22:00 37.9 C H 99 H 22 124/53 L 95 09/16/24 21:30 37.8 C H 99 H 24 124/56 L 95 09/16/24 21:15 37.8 C H 100 H 24 123/51 L 95 09/16/24 20:30 37.6 C H 99 H 24 121/52 L 95 O2 Del Method O2 Flow Rate 09/17/24 07:00 09/17/24 06:30 09/17/24 06:30 09/17/24 06:03 09/17/24 06:00 09/17/24 06:00 Nasal Cannula 1 09/17/24 05:54 09/17/24 05:06 09/17/24 05:00 09/17/24 05:00 Nasal Cannula 2 09/17/24 04:42 09/17/24 04:30 09/17/24 04:27 09/17/24 04:00 09/17/24 04:00 09/17/24 04:00 Room Air 09/17/24 03:30 09/17/24 03:30 09/17/24 03:00 09/17/24 03:00 09/17/24 03:00 Room Air 09/17/24 02:30 09/17/24 02:27 09/17/24 02:00 09/17/24 02:00 09/17/24 02:00 Room Air 09/17/24 01:30 09/17/24 01:27 09/17/24 01:09 09/17/24 01:00 09/17/24 01:00 Room Air 09/17/24 00:57 09/17/24 00:30 09/17/24 00:30 09/17/24 00:03 09/17/24 00:00 09/17/24 00:00 09/17/24 00:00 Nasal Cannula 1 09/16/24 23:53 09/16/24 23:30 09/16/24 23:21 09/16/24 23:00 Nasal Cannula 1 09/16/24 22:30 Nasal Cannula 1 09/16/24 22:00 Nasal Cannula 1 09/16/24 21:30 Nasal Cannula 1 09/16/24 21:15 Nasal Cannula 1 09/16/24 20:30 Nasal Cannula 2 Critical Care Results & Data Vital Signs (Past 12 Hours) Vital Signs Temp Pulse Pulse Resp BP BP Pulse Ox 09/17/24 07:00 37.1 C 88 21 95 09/17/24 06:30 128/52 L 09/17/24 06:30 37.2 C 88 22 97 09/17/24 06:03 37.2 C 92 H 21 98 09/17/24 06:00 125/52 L 09/17/24 06:00 37.2 C 90 21 125/52 L 97 09/17/24 05:54 37.2 C 91 H 21 97 09/17/24 05:06 37.3 C 96 H 22 91 09/17/24 05:00 122/50 L 09/17/24 05:00 37.4 C 93 H 21 112/50 L 95 09/17/24 04:42 37.4 C 92 H 21 92 09/17/24 04:30 124/50 L 09/17/24 04:27 37.4 C 98 H 21 95 09/17/24 04:00 116/53 L 09/17/24 04:00 37.5 C 103 H 26 H 94 09/17/24 04:00 37.4 C 94 H 21 116/53 L 94 09/17/24 03:30 121/49 L 09/17/24 03:30 37.6 C H 97 H 23 95 09/17/24 03:00 135/54 L 09/17/24 03:00 37.7 C H 98 H 22 95 09/17/24 03:00 37.7 C H 100 H 18 135/54 L 95 09/17/24 02:30 134/54 L 09/17/24 02:27 37.7 C H 97 H 22 96 09/17/24 02:00 134/53 L 09/17/24 02:00 37.8 C H 96 H 23 96 09/17/24 02:00 37.7 C H 96 H 24 134/53 L 96 09/17/24 01:30 131/55 L 09/17/24 01:27 37.8 C H 97 H 23 97 09/17/24 01:09 37.8 C H 100 H 27 H 97 09/17/24 01:00 135/53 L 09/17/24 01:00 37.8 C H 96 H 25 H 135/53 L 98 09/17/24 00:57 37.8 C H 97 H 22 98 09/17/24 00:30 136/52 L 09/17/24 00:30 37.9 C H 99 H 26 H 98 09/17/24 00:03 37.9 C H 99 H 25 H 97 09/17/24 00:00 142/56 H 09/17/24 00:00 142/56 H 09/17/24 00:00 37.9 C H 99 H 27 H 142/56 H 97 09/16/24 23:53 98 H 09/16/24 23:30 138/55 L 09/16/24 23:21 37.9 C H 97 H 24 96 09/16/24 23:00 37.9 C H 98 H 24 134/54 L 96 09/16/24 22:30 37.9 C H 99 H 130/55 L 95 09/16/24 22:00 37.9 C H 99 H 22 124/53 L 95 09/16/24 21:30 37.8 C H 99 H 24 124/56 L 95 09/16/24 21:15 37.8 C H 100 H 24 123/51 L 95 O2 Del Method O2 Flow Rate 09/17/24 07:00 09/17/24 06:30 09/17/24 06:30 09/17/24 06:03 09/17/24 06:00 09/17/24 06:00 Nasal Cannula 1 09/17/24 05:54 09/17/24 05:06 09/17/24 05:00 09/17/24 05:00 Nasal Cannula 2 09/17/24 04:42 09/17/24 04:30 09/17/24 04:27 09/17/24 04:00 09/17/24 04:00 09/17/24 04:00 Room Air 09/17/24 03:30 09/17/24 03:30 09/17/24 03:00 09/17/24 03:00 09/17/24 03:00 Room Air 09/17/24 02:30 09/17/24 02:27 09/17/24 02:00 09/17/24 02:00 09/17/24 02:00 Room Air 09/17/24 01:30 09/17/24 01:27 09/17/24 01:09 09/17/24 01:00 09/17/24 01:00 Room Air 09/17/24 00:57 09/17/24 00:30 09/17/24 00:30 09/17/24 00:03 09/17/24 00:00 09/17/24 00:00 09/17/24 00:00 Nasal Cannula 1 09/16/24 23:53 09/16/24 23:30 09/16/24 23:21 09/16/24 23:00 Nasal Cannula 1 09/16/24 22:30 Nasal Cannula 1 09/16/24 22:00 Nasal Cannula 1 09/16/24 21:30 Nasal Cannula 1 09/16/24 21:15 Nasal Cannula 1 Lab & Micro Results (Past 24 Hours) RBC 3.01 M/uL (4.20-5.40) L 09/17/24 WBC 24.60 K/ul (4.8-10.8) H 09/17/24 Hgb 7.6 g/dl (12.0-16.0) L 09/17/24 Hct 24.1 % (37.0-47.0) L 09/17/24 MCV 80.1 fL (80.0-100.0) 09/17/24 MCH 25.2 pg (25.0-34.0) 09/17/24 MCHC 31.5 g/dL (32.0-36.0) L 09/17/24 RDW Standard Deviation 51.4 fL (36.4-46.3) H 09/17/24 RDW Coefficient of Variation 17.4 % (11.5-14.5) H 09/17/24 Plt Count 320 K/uL (130-400) 09/17/24 MPV 9.7 fL (9.4-12.4) 09/17/24 Neutrophils (%) (Auto) 92.3 % 09/17/24 Lymphocytes (%) (Auto) 2.4 % 09/17/24 Monocytes # (Auto) 0.90 K/uL (0.11-0.59) H 09/17/24 Eosinophils # (Auto) 0.00 K/uL (0.00-0.50) 09/17/24 Immature Granulocyte % (Auto) 1.4 % 09/17/24 Neutrophils # (Auto) 22.72 K/uL (1.40-6.50) H 09/17/24 Lymphocytes # (Auto) 0.60 K/uL (1.20-3.40) L 09/17/24 Monocytes # (Auto) 0.90 K/uL (0.11-0.59) H 09/17/24 Eosinophils # (Auto) 0.00 K/uL (0.00-0.50) 09/17/24 Basophils # (Auto) 0.04 K/uL (0.00-0.20) 09/17/24 Immature Granulocyte # (Auto) 0.34 K/uL (0.01-0.20) H 09/17 Polychromasia 1+ 09/17/24 Na 132 mmol/L (136-145) L 09/17/24 K 3.2 mmol/L (3.5-5.1) L 09/17/24 Cl 93 mmol/L (98-107) L 09/17/24 CO2 16 mmol/L (21-32) L 09/17/24 Anion Gap 23 (3-11) H 09/17/24 BUN 29 mg/dl (6-23) H 09/17/24 Creatinine 3.99 mg/dl (0.6-1.2) H 09/17/24 BUN/Creatinine Ratio 7.3 (10-20) L 09/17/24 Glu 266 mg/dl (70-99(Fasting)) H 09/17/24 Ca 7.8 mg/dl (8.6-10.3) L 09/17/24 Calcium Level 7.8 mg/dl (8.6-10.3) L 09/17/24 04:06 Venous Blood pH 7.34 (7.36-7.41) L 09/16/24 22:38 Venous Blood Partial Pressure CO2 14 mmHg (38-50) L 09/16/24 11 :47 Venous Blood Partial Pressure O2 60 mmHg 09/16/24 11:47 Venous Blood HCO3 4 mmol/L 09/16/24 11:47 Venous Blood Base Excess -25.1 mEq/L 09/16/24 11:47 Venous Blood Oxygen Saturation 89.1 % 09/16/24 11:47 Diagnostic Findings (Past 24 Hours) Retrograde Pyelogram 09/16/24 00:00 FL retrograde includes kub CLINICAL HISTORY: RIGHT STENTright-sided cystourethrogram COMPARISON STUDY: CT of same day FLUOROSCOPY TIME: 10.5 seconds FLUOROSCOPY IMAGES: 1 EXPOSURE DOSE: 1.74 mGy FINDINGS: Proximal portion of a right ureteral stent is noted with proximal portion projected over the expected location of the superior pole right kidney. Dense focus projected over the renal pelvis may represent persistent UPJ calculus. The distal portion of the stent was not imaged. IMPRESSION: Fluoroscopic assistance as above. ACT 112: Negative or not required by law. Electronically signed by: Amari Ramey M.D. 09/17/2024 8:06 AM Abdomen/Pelvis CT 09/16/24 06:[address] WITHOUT CONTRAST CT DOSE: 2402.02 mGy.cm HISTORY: Acute generalized abdominal pain with GI bleed abd pain gi bleed TECHNIQUE: Multiaxial CT images of the abdomen and pelvis were performed without contrast. A dose lowering technique was utilized adhering to the principles of ALARA. COMPARISON STUDY: CT lumbar spine 10/03/2008 FINDINGS: Cardiomegaly with coronary artery calcifications. Partially imaged central venous catheter distal tip terminates in the superior aspect of the right atrium. Small pleural effusions with bibasilar mucous plugging, intralobular septal thickening and patchy groundglass and consolidative opacities. There is no pneumoperitoneum. The study is degraded by respiratory motion artifact. The unenhanced spleen, pancreas and adrenal glands are unremarkable. Possible cholelithiasis without CT evidence of acute cholecystitis. Hepatomegaly with hepatic steatosis. Unremarkable left kidney. Moderate right-sided hydronephrosis with an obstructing 1.8 x 1.3 x 1.7 cm calculus of the ureteropelvic junction. Reactive perinephric inflammatory stranding. Decompressed bladder with English catheter. Pelvic floor relaxation. Subcentimeter uterine calcification. Atherosclerosis of the aorta without aneurysm. No lymphadenopathy. Small hiatal hernia. No bowel stricture in or bowel wall thickening. Rectal catheter in place. Colonic diverticulosis. Normal appendix. 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 No acute fracture. IMPRESSION: 1. Moderate right-sided hydronephrosis secondary to an obstructing 1.8 cm calculus of the ureteropelvic junction. 2. Small pleural effusions with bibasilar opacities suggestive of pneumonia versus aspiration pneumonitis. 3. No bowel obstruction or bowel wall thickening. 4. Hepatic steatosis. 5. Colonic diverticulosis. 6. Additional findings as above. ACT 112: Negative or not required by law. The above report was generated using voice recognition software. It may contain grammatical, syntax or spelling errors. Electronically signed by: Amari Ramey M.D. 09/16/2024 12:[address] 09/16/24 06:44 CT head/brain wo con CLINICAL HISTORY: 73 years-old Female with juarez, slurred speech. Acute headache with strokelike symptoms TECHNIQUE: Multiple axial CT images of the head were obtained without contrast. A dose lowering technique was utilized adhering to the principles of ALARA. COMPARISON: CT soft tissue neck of same day FINDINGS: No acute intracranial hemorrhage, midline shift, intracranial mass, hydrocephalus, territorial ischemia or abnormal extra-axial collection. Involutional changes with white matter hypodensities suggestive of chronic microvascular ischemic disease. The calvarium is intact. Partially imaged mucosal thickening of the inferior maxillary sinuses. The mastoid air cells are clear. Prior bilateral lens repair. IMPRESSION: No acute intracranial abnormality. ACT 112: Negative or not required by law. The above report was generated using voice recognition software. It may contain grammatical, syntax or spelling errors. Electronically signed by: Amari Ramey M.D. 09/16/2024 12:59 PM [address] Tissue Neck CT 09/16/24 06:44 CT soft tissue neck wo con HISTORY: 73 years-old Female sore throat dysphagia with sore throat, headache and stroke like symptoms. COMPARISON: Head CT of same day TECHNIQUE: Multiple axial CT images of the soft tissues of the neck were obtained without IV contrast. A dose lowering technique was used consistent with the principals of ALARA. FINDINGS: Right IJ dual-lumen hemodialysis catheter in place. Partially imaged polypoid mucosal thickening of the maxillary sinuses measuring up to 3 cm on the right. No acute inflammatory changes, fluid collections or lymphadenopathy. The glottis and subglottic airway appears unremarkable. No dominant thyroid nodule. No pneumothorax. No acute fracture. Degenerative changes of the cervical spine including severe disc space narrowing at C5-C6 and C6-C7 with multilevel neural foraminal narrowing. No acute intracranial abnormality. IMPRESSION: 1. Mildly motion degraded exam. No acute inflammatory changes or fluid collections. 2. Patent airway. 3. Partially imaged right IJ central venous catheter. 4. Polypoid mucosal thickening of the maxillary sinuses. ACT 112: Negative or not required by law. The above report was generated using voice recognition software. It may contain grammatical, syntax or spelling errors. Electronically signed by: Amari Ramey M.D. 09/16/2024 1:02 PM Chest X-Ray 09/16/24 10:49 XR chest 1V portable HISTORY: 73 years-old Female line status post placement of a right IJ central venous catheter COMPARISON: None TECHNIQUE: AP view of the chest FINDINGS: Cardiac silhouette is enlarged. Status post placement of a right IJ central venous catheter with distal tip projected over the expected location of the right atrium. Pulmonary vascular congestion. No pneumothorax. Probable trace pleural effusions with mild bibasilar and left midlung densities. Bones appear grossly intact. IMPRESSION: 1. Status post placement of a right IJ central venous catheter with distal tip projected over the expected location of the right atrium. 2. No pneumothorax. 3. Cardiomegaly with pulmonary vascular congestion. 4. Trace pleural effusions with mild bibasilar opacities which may represent atelectasis versus pneumonitis. ACT 112: Negative or not required by law. The above report was generated using voice recognition software. It may contain grammatical, syntax or spelling errors. Electronically signed by: mAari Ramey M.D. 09/16/2024 10:43 AM I & O Totals 24 Hours 09/16/24 09/17/24 09/18/24 06:59 06:59 06:59 Intake Total 150 / 150 2606.800 / 2606.800 Output Total 2875 / 2875 Balance 150 / 150 -268.200 / -268.200 Cumulative 09/16/24 thru 09/17/24 06:37 Intake Total 2756.800 Output Total 2875 Balance -118.200 RT Ventilator Mngmt (Last Documented) Ventilator Ordered Settings Respiratory Rate 21 09/17/24 07:00 Fraction of Inspired Oxygen 2 09/16/24 20:15 Ventilator - PT Measurements Respiratory Rate 21 Coding Level of Care Code 22415 SUB INP/OBS CARE 3/50MIN Diagnoses Severe sepsis A41.9; R65.20 Acute renal failure N17.9 Depression F32.A Diabetes E11.9 HTN (hypertension) I10 Hypothyroidism E03.9 Lactic acidosis E87.20 Acute anemia D64.9 Stone in renal pelvis N20.0 CKD (chronic kidney disease) stage 3, GFR 30-59 ml/min N18.30
--- NOTE | 2024-09-17 08:29 | Urology Progress Note ---
Date of Service September 17, 2024 Assessment & Plan (1) Stone in renal pelvis: (2) Severe sepsis: Plan 73-year-old female who is admitted as a transfer for significant UTI. She was found to be septic and required emergent dialysis due to metabolic acidosis. CT scan showed a 1.8 cm right renal pelvis stone with obstruction. She was taken emergently to the OR the evening of 09/16/2024 for cystoscopy with right ureteral stent placement. Afebrile with stable vitals. Labs improving. Patient surprisingly looks well given how significant her illness is. Maintain English catheter. Defer to primary team versus nephrology for removal as most likely will be beneficial from an intake output measurement standpoint Continue antibiotics and recommend a total of 14 days of treatment Urology to follow peripherally Urology has sent a message to schedule outpatient stone treatment Admission and Anticipated Discharge Date Admission Date: September 16, 2024 Subjective 73-year-old female who is admitted as a transfer for significant UTI. She was found to be septic and required emergent dialysis due to metabolic acidosis. CT scan showed a 1.8 cm right renal pelvis stone with obstruction. She was taken emergently to the OR the evening of 09/16/2024 for cystoscopy with right ureteral stent placement. Afebrile with stable vitals this morning. Leukocytosis is downtrending from 40- 24.6. Hemoglobin 7.6. Creatinine has down trended from over 8-3.99 this morning. Mild hyponatremia and hypokalemia. Subjectively reports feeling much better today. Physical Exam Physical Exam: General: Alert and oriented, no acute distress HEENT: Normocephalic, mucous membranes moist Pulmonary: Nonlabored respirations Abdomen: Nondistended : English catheter draining clear yellow urine Extremities: Moves all 4 spontaneously Neuro: No gross deficits Skin: Warm, dry, no rashes noted Results & Data Vital Signs (Past 12 Hours) Vital Signs Temp Pulse Pulse Resp BP BP Pulse Ox 09/17/24 07:00 37.1 C 88 21 95 09/17/24 06:30 128/52 L 09/17/24 06:30 37.2 C 88 22 97 09/17/24 06:03 37.2 C 92 H 21 98 09/17/24 06:00 125/52 L 09/17/24 06:00 37.2 C 90 21 125/52 L 97 09/17/24 05:54 37.2 C 91 H 21 97 09/17/24 05:06 37.3 C 96 H 22 91 09/17/24 05:00 122/50 L 09/17/24 05:00 37.4 C 93 H 21 112/50 L 95 09/17/24 04:42 37.4 C 92 H 21 92 09/17/24 04:30 124/50 L 09/17/24 04:27 37.4 C 98 H 21 95 09/17/24 04:00 116/53 L 09/17/24 04:00 37.5 C 103 H 26 H 94 09/17/24 04:00 37.4 C 94 H 21 116/53 L 94 09/17/24 03:30 121/49 L 09/17/24 03:30 37.6 C H 97 H 23 95 09/17/24 03:00 135/54 L 09/17/24 03:00 37.7 C H 98 H 22 95 09/17/24 03:00 37.7 C H 100 H 18 135/54 L 95 09/17/24 02:30 134/54 L 09/17/24 02:27 37.7 C H 97 H 22 96 09/17/24 02:00 134/53 L 09/17/24 02:00 37.8 C H 96 H 23 96 09/17/24 02:00 37.7 C H 96 H 24 134/53 L 96 09/17/24 01:30 131/55 L 09/17/24 01:27 37.8 C H 97 H 23 97 09/17/24 01:09 37.8 C H 100 H 27 H 97 09/17/24 01:00 135/53 L 09/17/24 01:00 37.8 C H 96 H 25 H 135/53 L 98 09/17/24 00:57 37.8 C H 97 H 22 98 09/17/24 00:30 136/52 L 09/17/24 00:30 37.9 C H 99 H 26 H 98 09/17/24 00:03 37.9 C H 99 H 25 H 97 09/17/24 00:00 142/56 H 09/17/24 00:00 142/56 H 09/17/24 00:00 37.9 C H 99 H 27 H 142/56 H 97 09/16/24 23:53 98 H 09/16/24 23:30 138/55 L 09/16/24 23:21 37.9 C H 97 H 24 96 09/16/24 23:00 37.9 C H 98 H 24 134/54 L 96 09/16/24 22:30 37.9 C H 99 H 130/55 L 95 09/16/24 22:00 37.9 C H 99 H 22 124/53 L 95 09/16/24 21:30 37.8 C H 99 H 24 124/56 L 95 09/16/24 21:15 37.8 C H 100 H 24 123/51 L 95 09/16/24 20:30 37.6 C H 99 H 24 121/52 L 95 O2 Del Method O2 Flow Rate 09/17/24 07:00 09/17/24 06:30 09/17/24 06:30 09/17/24 06:03 09/17/24 06:00 09/17/24 06:00 Nasal Cannula 1 09/17/24 05:54 09/17/24 05:06 09/17/24 05:00 09/17/24 05:00 Nasal Cannula 2 09/17/24 04:42 09/17/24 04:30 09/17/24 04:27 09/17/24 04:00 09/17/24 04:00 09/17/24 04:00 Room Air 09/17/24 03:30 09/17/24 03:30 09/17/24 03:00 09/17/24 03:00 09/17/24 03:00 Room Air 09/17/24 02:30 09/17/24 02:27 09/17/24 02:00 09/17/24 02:00 09/17/24 02:00 Room Air 09/17/24 01:30 09/17/24 01:27 09/17/24 01:09 09/17/24 01:00 09/17/24 01:00 Room Air 09/17/24 00:57 09/17/24 00:30 09/17/24 00:30 09/17/24 00:03 09/17/24 00:00 09/17/24 00:00 09/17/24 00:00 Nasal Cannula 1 09/16/24 23:53 09/16/24 23:30 09/16/24 23:21 09/16/24 23:00 Nasal Cannula 1 09/16/24 22:30 Nasal Cannula 1 09/16/24 22:00 Nasal Cannula 1 09/16/24 21:30 Nasal Cannula 1 09/16/24 21:15 Nasal Cannula 1 09/16/24 20:30 Nasal Cannula 2 PG Care Time/CCT Total # of Minutes Spent Total Time Spent with Patient: Total time spent is greater than 50% in coordination of care (as documented) at patient's floor/unit and/or counseling patient: Coding Level of Care Code 58493 SUB INP/OBS CARE 2/35MIN Diagnoses Stone in renal pelvis N20.0 Severe sepsis A41.9; R65.20
[2024-09-17] MEDS: POTASSIUM CHLORIDE CRTAB 20 MEQ TABCR PO SCH (10:11)
[2024-09-17] MEDS: cefTRIAXone SODIUM 1,000 MG/50 ML BAG IV SCH (10:11)
--- NOTE | 2024-09-17 11:18 | Hospitalist Progress Note ---
Date of Service September 17, 2024 Assessment & Plan (1) CKD (chronic kidney disease) stage 3, GFR 30-59 ml/min: (2) Stone in renal pelvis: (3) Severe sepsis: (4) Lactic acidosis: Plan Pt is a 73yoF with PMHx significant for hypertension, hyperlipidemia, DM2 on oral medications, hypothyroidism, CKD (baseline creatinine 1.3), GERD, mood disorder who presented as a transfer from the outside hospital [facility] for nephrology services. Patient was found to be in septic shock with obstructive uropathy and severe metabolic acidosis requiring hemodialysis and admission to the ICU. Severe Sepsis Septic shock Obstructive Uropathy Possible Pneumonia Patient presenting with significant leukocytosis of 40,000 that has since downtrended Outside UA suggestive of infection per nursing staff, per [facility] urine culture currently growing E. coli, blood cultures with no growth to date repeat UA pending Chest x-ray on admission here noting concern for pneumonia versus aspiration pneumonitis CT abdomen pelvis noted moderate right-sided hydronephrosis with obstructing 1.8 cm calculus of the ureteropelvic junction head CT and CT of the soft tissue neck also noting concern for mucosal thickening of maxillary sinus urology was consulted, appreciate recs -Patient's status post right stent placement on 09/16/2024 Patient was initially admitted to the ICU requiring pressor support. Has since been weaned off and downgraded Continue on IV Rocephin Follow cultures from outside hospital and narrow based on sensitivities. Repeat UA also pending here Given concern for aspiration as well as patient reported dysphagia for which CT of the soft tissue neck was ordered, speech consulted appreciate recs Continue to monitor Severe Metabolic Acidosis acute metabolic encephalopathy Patient with pH less than 7 on arrival, pCO2 of 17, bicarb of 4, anion gap of 32 Patient was tachypneic and lethargic Was admitted to the ICU and started on a bicarb drip Nephrology was consulted, appreciate recs - status post emergent dialysis on 09/16/2024 to help with acidemia - bicarb drip has since been discontinued holding home Lyrica at this time Continue to monitor Improving Acute kidney injury on chronic kidney disease Creatinine of 8.31 on arrival Status post emergent dialysis on Creatinine has improved to 3.75-3.99 range today Hold nephrotoxic meds as able Nephrology consulted, appreciate recs Hyperkalemia-resolved Hypokalemia Patient initially with potassium of 5.8 on arrival Status post emergent dialysis on Potassium has since trended down to 3.2 Supplement as needed Acute on chronic anemia Iron Deficiency Anemia Hemoglobin of 8.8 on arrival Has since down trended to 7.6, possible dilution component Iron studies noting iron deficiency anemia started on p.o. ferrous sulfate Transfuse for hemoglobin less than 7 Continue to monitor with a.m. labs DMII Patient with this history and noted hyperglycemia AM hemoglobin A1c Holding home metformin at this time Basal bolus per protocol continue to monitor CODE STATUS: Full code Diet: Full liquids at this time, advance as tolerated DVT prophylaxis: SCDs at this time in setting of anemia Dispo: PT OT for further recs once patient more medically stable Admission and Anticipated Discharge Date Admission Date: September 16, 2024 Subjective patient was seen while still down in the ICU Alert and oriented x 3 Stated that she was feeling better Review of Systems Review of Systems: All systems reviewed & are unremarkable except as noted in Subjective Physical Exam 2 Physical Exam: General: Alert, orientedx3. Psych: Appropriate mood and affect Neuro: No gross deficits HEENT: NC/AT CV: RRR Resp: Breath sounds clear bilaterally, no increased effort of breathing Abdomen:Soft, tender Extremities:boots on lower extremities bilaterally. Results & Data Results & Data Vital Signs (Past 12 Hours) Vital Signs Temp Pulse Pulse Resp BP BP Pulse Ox 09/17/24 10:30 144/58 H 09/17/24 10:27 37.4 C 95 H 26 H 93 09/17/24 10:06 37.4 C 94 H 25 H 92 09/17/24 10:01 130/88 09/17/24 09:57 37.3 C 92 H 26 H 94 09/17/24 09:33 37.3 C 95 H 23 94 09/17/24 09:30 102/42 L 09/17/24 09:27 37.3 C 95 H 26 H 93 09/17/24 09:12 37.2 C 92 H 20 94 09/17/24 09:01 121/90 09/17/24 09:01 121/90 09/17/24 08:57 37.2 C 94 H 23 95 09/17/24 08:30 121/50 L 09/17/24 08:24 37.2 C 89 23 95 09/17/24 08:21 37.2 C 88 21 94 09/17/24 08:00 127/48 L 09/17/24 07:57 37.2 C 88 19 94 09/17/24 07:30 09/17/24 07:30 122/61 09/17/24 07:30 37.1 C 93 H 23 93 09/17/24 07:00 37.1 C 88 21 95 09/17/24 06:30 128/52 L 09/17/24 06:30 37.2 C 88 22 97 09/17/24 06:03 37.2 C 92 H 21 98 09/17/24 06:00 125/52 L 09/17/24 06:00 37.2 C 90 21 125/52 L 97 09/17/24 05:54 37.2 C 91 H 21 97 09/17/24 05:06 37.3 C 96 H 22 91 09/17/24 05:00 122/50 L 09/17/24 05:00 37.4 C 93 H 21 112/50 L 95 09/17/24 04:42 37.4 C 92 H 21 92 09/17/24 04:30 124/50 L 09/17/24 04:27 37.4 C 98 H 21 95 09/17/24 04:00 116/53 L 09/17/24 04:00 37.5 C 103 H 26 H 94 09/17/24 04:00 37.4 C 94 H 21 116/53 L 94 09/17/24 03:30 121/49 L 09/17/24 03:30 37.6 C H 97 H 23 95 09/17/24 03:00 135/54 L 09/17/24 03:00 37.7 C H 98 H 22 95 09/17/24 03:00 37.7 C H 100 H 18 135/54 L 95 09/17/24 02:30 134/54 L 09/17/24 02:27 37.7 C H 97 H 22 96 09/17/24 02:00 134/53 L 09/17/24 02:00 37.8 C H 96 H 23 96 09/17/24 02:00 37.7 C H 96 H 24 134/53 L 96 09/17/24 01:30 131/55 L 09/17/24 01:27 37.8 C H 97 H 23 97 09/17/24 01:09 37.8 C H 100 H 27 H 97 09/17/24 01:00 135/53 L 09/17/24 01:00 37.8 C H 96 H 25 H 135/53 L 98 09/17/24 00:57 37.8 C H 97 H 22 98 09/17/24 00:30 136/52 L 09/17/24 00:30 37.9 C H 99 H 26 H 98 09/17/24 00:03 37.9 C H 99 H 25 H 97 09/17/24 00:00 142/56 H 09/17/24 00:00 142/56 H 09/17/24 00:00 37.9 C H 99 H 27 H 142/56 H 97 09/16/24 23:53 98 H 09/16/24 23:30 138/55 L 09/16/24 23:21 37.9 C H 97 H 24 96 O2 Del Method O2 Flow Rate 09/17/24 10:30 09/17/24 10:27 09/17/24 10:06 09/17/24 10:01 09/17/24 09:57 09/17/24 09:33 09/17/24 09:30 09/17/24 09:27 09/17/24 09:12 09/17/24 09:01 09/17/24 09:01 09/17/24 08:57 09/17/24 08:30 09/17/24 08:24 09/17/24 08:21 09/17/24 08:00 09/17/24 07:57 09/17/24 07:30 Nasal Cannula 1 09/17/24 07:30 09/17/24 07:30 09/17/24 07:00 09/17/24 06:30 09/17/24 06:30 09/17/24 06:03 09/17/24 06:00 09/17/24 06:00 Nasal Cannula 1 09/17/24 05:54 09/17/24 05:06 09/17/24 05:00 09/17/24 05:00 Nasal Cannula 2 09/17/24 04:42 09/17/24 04:30 09/17/24 04:27 09/17/24 04:00 09/17/24 04:00 09/17/24 04:00 Room Air 09/17/24 03:30 09/17/24 03:30 09/17/24 03:00 09/17/24 03:00 09/17/24 03:00 Room Air 09/17/24 02:30 09/17/24 02:27 09/17/24 02:00 09/17/24 02:00 09/17/24 02:00 Room Air 09/17/24 01:30 09/17/24 01:27 09/17/24 01:09 09/17/24 01:00 09/17/24 01:00 Room Air 09/17/24 00:57 09/17/24 00:30 09/17/24 00:30 09/17/24 00:03 09/17/24 00:00 09/17/24 00:00 09/17/24 00:00 Nasal Cannula 1 09/16/24 23:53 09/16/24 23:30 09/16/24 23:21 Diagnostic Findings Retrograde Pyelogram 09/16/24 00:00 FL retrograde includes kub CLINICAL HISTORY: RIGHT STENTright-sided cystourethrogram COMPARISON STUDY: CT of same day FLUOROSCOPY TIME: 10.5 seconds FLUOROSCOPY IMAGES: 1 EXPOSURE DOSE: 1.74 mGy FINDINGS: Proximal portion of a right ureteral stent is noted with proximal portion projected over the expected location of the superior pole right kidney. Dense focus projected over the renal pelvis may represent persistent UPJ calculus. The distal portion of the stent was not imaged. IMPRESSION: Fluoroscopic assistance as above. ACT 112: Negative or not required by law. Electronically signed by: Amari Ramey M.D. 09/17/2024 8:06 AM Abdomen/Pelvis CT 09/16/24 06:[address] WITHOUT CONTRAST CT DOSE: 2402.02 mGy.cm HISTORY: Acute generalized abdominal pain with GI bleed abd pain gi bleed TECHNIQUE: Multiaxial CT images of the abdomen and pelvis were performed without contrast. A dose lowering technique was utilized adhering to the principles of ALARA. COMPARISON STUDY: CT lumbar spine 10/03/2008 FINDINGS: Cardiomegaly with coronary artery calcifications. Partially imaged central venous catheter distal tip terminates in the superior aspect of the right atrium. Small pleural effusions with bibasilar mucous plugging, intralobular septal thickening and patchy groundglass and consolidative opacities. There is no pneumoperitoneum. The study is degraded by respiratory motion artifact. The unenhanced spleen, pancreas and adrenal glands are unremarkable. Possible cholelithiasis without CT evidence of acute cholecystitis. Hepatomegaly with hepatic steatosis. Unremarkable left kidney. Moderate right-sided hydronephrosis with an obstructing 1.8 x 1.3 x 1.7 cm calculus of the ureteropelvic junction. Reactive perinephric inflammatory stranding. Decompressed bladder with English catheter. Pelvic floor relaxation. Subcentimeter uterine calcification. Atherosclerosis of the aorta without aneurysm. No lymphadenopathy. Small hiatal hernia. No bowel stricture in or bowel wall thickening. Rectal catheter in place. Colonic diverticulosis. Normal appendix. 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 No acute fracture. IMPRESSION: 1. Moderate right-sided hydronephrosis secondary to an obstructing 1.8 cm calculus of the ureteropelvic junction. 2. Small pleural effusions with bibasilar opacities suggestive of pneumonia versus aspiration pneumonitis. 3. No bowel obstruction or bowel wall thickening. 4. Hepatic steatosis. 5. Colonic diverticulosis. 6. Additional findings as above. ACT 112: Negative or not required by law. The above report was generated using voice recognition software. It may contain grammatical, syntax or spelling errors. Electronically signed by: Amari Ramey M.D. 09/16/2024 12:[address] 09/16/24 06:44 CT head/brain wo con CLINICAL HISTORY: 73 years-old Female with juarez, slurred speech. Acute headache with strokelike symptoms TECHNIQUE: Multiple axial CT images of the head were obtained without contrast. A dose lowering technique was utilized adhering to the principles of ALARA. COMPARISON: CT soft tissue neck of same day FINDINGS: No acute intracranial hemorrhage, midline shift, intracranial mass, hydrocephalus, territorial ischemia or abnormal extra-axial collection. Involutional changes with white matter hypodensities suggestive of chronic microvascular ischemic disease. The calvarium is intact. Partially imaged mucosal thickening of the inferior maxillary sinuses. The mastoid air cells are clear. Prior bilateral lens repair. IMPRESSION: No acute intracranial abnormality. ACT 112: Negative or not required by law. The above report was generated using voice recognition software. It may contain grammatical, syntax or spelling errors. Electronically signed by: Amari Ramey M.D. 09/16/2024 12:[address]ck [address] 09/16/24 06:44 CT soft tissue neck wo con HISTORY: 73 years-old Female sore throat dysphagia with sore throat, headache and stroke like symptoms. COMPARISON: Head CT of same day TECHNIQUE: Multiple axial CT images of the soft tissues of the neck were obtained without IV contrast. A dose lowering technique was used consistent with the principals of OPAL. FINDINGS: Right IJ dual-lumen hemodialysis catheter in place. Partially imaged polypoid mucosal thickening of the maxillary sinuses measuring up to 3 cm on the right. No acute inflammatory changes, fluid collections or lymphadenopathy. The glottis and subglottic airway appears unremarkable. No dominant thyroid nodule. No pneumothorax. No acute fracture. Degenerative changes of the cervical spine including severe disc space narrowing at C5-C6 and C6-C7 with multilevel neural foraminal narrowing. No acute intracranial abnormality. IMPRESSION: 1. Mildly motion degraded exam. No acute inflammatory changes or fluid collections. 2. Patent airway. 3. Partially imaged right IJ central venous catheter. 4. Polypoid mucosal thickening of the maxillary sinuses. ACT 112: Negative or not required by law. The above report was generated using voice recognition software. It may contain grammatical, syntax or spelling errors. Electronically signed by: Amari Ramey M.D. 09/16/2024 1:02 PM Chest X-Ray 09/16/24 10:49 XR chest 1V portable HISTORY: 73 years-old Female line status post placement of a right IJ central venous catheter COMPARISON: None TECHNIQUE: AP view of the chest FINDINGS: Cardiac silhouette is enlarged. Status post placement of a right IJ central venous catheter with distal tip projected over the expected location of the right atrium. Pulmonary vascular congestion. No pneumothorax. Probable trace pleural effusions with mild bibasilar and left midlung densities. Bones appear grossly intact. IMPRESSION: 1. Status post placement of a right IJ central venous catheter with distal tip projected over the expected location of the right atrium. 2. No pneumothorax. 3. Cardiomegaly with pulmonary vascular congestion. 4. Trace pleural effusions with mild bibasilar opacities which may represent atelectasis versus pneumonitis. ACT 112: Negative or not required by law. The above report was generated using voice recognition software. It may contain grammatical, syntax or spelling errors. Electronically signed by: Amari Ramey M.D. 09/16/2024 10:43 AM
--- NOTE | 2024-09-17 11:41 | Nephrology Progress Note ---
Date of Service September 17, 2024 Assessment & Plan (1) Lactic acidosis: Plan: improving still severe but no longer life threatening anion gap metabolic acidosis . still slighlty tachypneic as she tries to compensate but no longer tiring out or looking on verge of potential intubation critical lactic acidosis w/ anion gap down to 31>>23 and bicarbonate 3>>16, pH from <7 yesterday and up to 7.34 last evening, and lactate 6.8 on presentation > 4.9 yesterday; k 3.2 today s/p emergent dialysis 09/17 to manage acidemia >started K mEq bid for 2 doses today > appropraite >cont bicarb gtt at 100 mL hourly >no dialysis needed today > will keep catheter for now and reeval in am >> may need another run if not optimizing w/ IVF tomorrow Care coordinated with Dr Davila, Dr Brooks, Dr Schaefer in person and via tiger text. I spent 10 minutes explaining clinical status to patient > kidney function, acidosis status, infection results, urology and dialysis plans. I spent a total of 50 minutes coordinating, documenting, and providing care for this patient excluding time spent in the performance of separately billed services. This included personally reviewing all current laboratories and imaging studies, medication reconciliation, outpatient chart review, and discussion with other physicians, with nursing, and as applicable with the patient and family. (2) Acute renal failure: Plan: improving Stage 3 nonoliguric CARMEN multifactorial in the setting of obstructive uropathy and ischemic ATN. h/o complicated UTI and possibly bacteremia, though OP cxs NGTD; no metformin since 09/05, so no likely role for it here. baseline creatinine 1.0-1.3. presenting creatinine OSH 09/15 9.6; 8.3 09/16; 4 today after HD yesterday -emergent dialysis as above on 09/16; none today but may well need tomorrow -cont strict I/O -bmp daily for now -continue to avoid IV contrast as able (3) Severe sepsis: Plan: complicated UTI in setting of impacted R stone, possible bacteremia as well/ blood cultures pending; also possible community acquired pneumonia component. [facility] cxs growing E coli on urine and blood cxs NGTD. -f/u pending cultures OSH -continue coverage w/ cefepime for UTI/CAP; doxy for atypicals -urology help w/ source control appreciated; for OP f/u (4) Acute anemia: Plan: hgb 10 at OSH on 09/15; 8.8 here on arrival 09/16 and 8.4 later this am. -recheck later; dilution may have a role, though other cell lines not much changed (5) Stone in renal pelvis: Plan: urology consultation recommended; nothing to do until acidemia improved (6) CKD (chronic kidney disease) stage 3, GFR 30-59 ml/min: Plan: underlying CKD3A, possibly progressive >> baseline creatinine had been 1 x years (GFR 58) as of 07/2023 but was 1.3 (GFR 46) April 2024; historically nonalbuminuric. -will call her baseline creatinine 1.3; monitor for recovery Admission and Anticipated Discharge Date Admission Date: September 16, 2024 Subjective feeling much improved this am > no pain; thinking clearer, productive cough > mild; ate some breakfast (first po) and tolerated; still very sore throat; 02 needs from 3L > 1L; pt went urgently to OR last evening w/ urology for R ureteral stent Review of Systems 2 Review of Systems: All systems reviewed & are unremarkable except as noted in Subjective Physical Exam 2 Constitutional: well developed, well nourished, + ill appearing (still but less so), average body habitus and cooperative; no acute distress (breathing much better) and no altered mental status Eyes: EOM intact bilaterally ENMT: Mouth: + dry oral mucous membranes Neck: no nuchal rigidity Respiratory: + respiratory distress, able to speak in complete sentences and + tachypneic (slight); no labored breathing, no cough, expiratory phase not prolonged and no audible wheezes Auscultation: + diminished lung sounds and + crackles (bibasilar but fewer) Cardiovascular: Rate/Rhythm: regular rhythm and + tachycardic (in 90s) E xtremities: no edema Gastrointestinal (Abdomen): Inspection/Auscultation: normal bowel sounds P ercussion/Palpation: abdomen soft; abdomen nontender Musculoskeletal: Extremities: strength 5/5 throughout Psychiatric: Orientation: oriented to person, oriented to place and cooperative Results & Data Vital Signs (Past 12 Hours) Vital Signs Temp Pulse Pulse Resp BP BP Pulse Ox 09/17/24 10:30 144/58 H 09/17/24 10:27 37.4 C 95 H 26 H 93 09/17/24 10:06 37.4 C 94 H 25 H 92 09/17/24 10:01 130/88 09/17/24 09:57 37.3 C 92 H 26 H 94 09/17/24 09:33 37.3 C 95 H 23 94 09/17/24 09:30 102/42 L 09/17/24 09:27 37.3 C 95 H 26 H 93 09/17/24 09:12 37.2 C 92 H 20 94 09/17/24 09:01 121/90 09/17/24 09:01 121/90 09/17/24 08:57 37.2 C 94 H 23 95 09/17/24 08:30 121/50 L 09/17/24 08:24 37.2 C 89 23 95 09/17/24 08:21 37.2 C 88 21 94 09/17/24 08:00 127/48 L 09/17/24 07:57 37.2 C 88 19 94 09/17/24 07:30 09/17/24 07:30 122/61 09/17/24 07:30 37.1 C 93 H 23 93 09/17/24 07:00 37.1 C 88 21 95 09/17/24 06:30 128/52 L 09/17/24 06:30 37.2 C 88 22 97 09/17/24 06:03 37.2 C 92 H 21 98 09/17/24 06:00 125/52 L 09/17/24 06:00 37.2 C 90 21 125/52 L 97 09/17/24 05:54 37.2 C 91 H 21 97 09/17/24 05:06 37.3 C 96 H 22 91 09/17/24 05:00 122/50 L 09/17/24 05:00 37.4 C 93 H 21 112/50 L 95 09/17/24 04:42 37.4 C 92 H 21 92 09/17/24 04:30 124/50 L 09/17/24 04:27 37.4 C 98 H 21 95 09/17/24 04:00 116/53 L 09/17/24 04:00 37.5 C 103 H 26 H 94 09/17/24 04:00 37.4 C 94 H 21 116/53 L 94 09/17/24 03:30 121/49 L 09/17/24 03:30 37.6 C H 97 H 23 95 09/17/24 03:00 135/54 L 09/17/24 03:00 37.7 C H 98 H 22 95 09/17/24 03:00 37.7 C H 100 H 18 135/54 L 95 09/17/24 02:30 134/54 L 09/17/24 02:27 37.7 C H 97 H 22 96 09/17/24 02:00 134/53 L 09/17/24 02:00 37.8 C H 96 H 23 96 09/17/24 02:00 37.7 C H 96 H 24 134/53 L 96 09/17/24 01:30 131/55 L 09/17/24 01:27 37.8 C H 97 H 23 97 09/17/24 01:09 37.8 C H 100 H 27 H 97 09/17/24 01:00 135/53 L 09/17/24 01:00 37.8 C H 96 H 25 H 135/53 L 98 09/17/24 00:57 37.8 C H 97 H 22 98 09/17/24 00:30 136/52 L 09/17/24 00:30 37.9 C H 99 H 26 H 98 09/17/24 00:03 37.9 C H 99 H 25 H 97 09/17/24 00:00 142/56 H 09/17/24 00:00 142/56 H 09/17/24 00:00 37.9 C H 99 H 27 H 142/56 H 97 09/16/24 23:53 98 H 09/16/24 23:30 138/55 L 09/16/24 23:21 37.9 C H 97 H 24 96 O2 Del Method O2 Flow Rate 09/17/24 10:30 09/17/24 10:27 09/17/24 10:06 09/17/24 10:01 09/17/24 09:57 09/17/24 09:33 09/17/24 09:30 09/17/24 09:27 09/17/24 09:12 09/17/24 09:01 09/17/24 09:01 09/17/24 08:57 09/17/24 08:30 09/17/24 08:24 09/17/24 08:21 09/17/24 08:00 09/17/24 07:57 09/17/24 07:30 Nasal Cannula 1 09/17/24 07:30 09/17/24 07:30 09/17/24 07:00 09/17/24 06:30 09/17/24 06:30 09/17/24 06:03 09/17/24 06:00 09/17/24 06:00 Nasal Cannula 1 09/17/24 05:54 09/17/24 05:06 09/17/24 05:00 09/17/24 05:00 Nasal Cannula 2 09/17/24 04:42 09/17/24 04:30 09/17/24 04:27 09/17/24 04:00 09/17/24 04:00 09/17/24 04:00 Room Air 09/17/24 03:30 09/17/24 03:30 09/17/24 03:00 09/17/24 03:00 09/17/24 03:00 Room Air 09/17/24 02:30 09/17/24 02:27 09/17/24 02:00 09/17/24 02:00 09/17/24 02:00 Room Air 09/17/24 01:30 09/17/24 01:27 09/17/24 01:09 09/17/24 01:00 09/17/24 01:00 Room Air 09/17/24 00:57 09/17/24 00:30 09/17/24 00:30 09/17/24 00:03 09/17/24 00:00 09/17/24 00:00 09/17/24 00:00 Nasal Cannula 1 09/16/24 23:53 09/16/24 23:30 09/16/24 23:21 Laboratory Results 09/17/24 04:06 09/17/24 04:06
[2024-09-17] MEDS: PHENYLEPHRINE HCL 25 MG/250 ML NSS IV ONE (17:37)
[2024-09-17 18:24] LABS: Appearance Urine Clear (Clear); Bacteria Urine Automated None Seen (None Seen); Bilirubin Urine Negative (Negative); Blood Urine 2+ (Negative); Color Urine Yellow; Epithelial Cell Urine Auto 0-2 /hpf (0-2); Glucose Urine UA Trace (Negative); Ketones Urine Negative (Negative); Leukocyte Esterase Urine 3+ (Negative); Nitrite Urine Negative (Negative); Protein Urine 2+ (Negative); RBC Urine Automated >20 /hpf (0-2); Specific Gravity Urine 1.009 (1.000-1.030); Urobilinogen Urine Negative (Negative); WBC Urine Automated >50 /hpf (0-5)
[2024-09-17 18:56] LABS: Calcium 7.6 mg/dl (8.6-10.3); Potassium 3.6 mmol/L (3.5-5.1)
[2024-09-17 19:02] LABS: BUN Creatinine Ratio 8.5 (10-20); Creatinine Clr Calc Pharmacy 12.5 ml/min
[2024-09-17] MEDS: DOCUSATE SODIUM 100 MG CAP PO SCH (19:53)
[2024-09-17] MEDS: DOCUSATE SODIUM 100 MG CAP PO ONE (19:53)
[2024-09-18 07:37] LABS: Basophils # (auto) 0.03 K/uL (0.00-0.20); Basophils % (auto) 0.2 %; Eosinophils # (auto) 0.23 K/uL (0.00-0.50); Eosinophils % (auto) 1.7 %; Hematocrit (blood only) 23.6 % (37.0-47.0); Hemoglobin 7.8 g/dl (12.0-16.0); Immature Granulocytes # (auto) 0.08 K/uL (0.01-0.20); Immature Granulocytes % (auto) 0.6 %; Lymphocytes # (auto) 1.12 K/uL (1.20-3.40); Lymphocytes % (auto) 8.3 %; Mean Corpuscular Hemoglobin 25.8 pg (25.0-34.0); Mean Corpuscular Hgb Conc 33.1 g/dL (32.0-36.0); Mean Corpuscular Volume 78.1 fL (80.0-100.0); Mean Platelet Volume 9.8 fL (9.4-12.4); Monocytes # (auto) 0.88 K/uL (0.11-0.59); Monocytes % (auto) 6.5 %; Neutrophils # (auto) 11.18 K/uL (1.40-6.50); Neutrophils % (auto) 82.7 %; Platelet Count 251 K/uL (130-400); RDW Coefficient of Variation 17.5 % (11.5-14.5); RDW Standard Deviation 49.9 fL (36.4-46.3); Red Blood Count 3.02 M/uL (4.20-5.40); White Blood Count 13.52 K/ul (4.8-10.8)
[2024-09-18 07:57] LABS: Estimated Average Glucose 154 mg/dl
[2024-09-18 07:58] LABS: Polychromasia 1+
[2024-09-18 08:00] LABS: Albumin Globulin Ratio 1.1 (0.9-2); Albumin Level 3.1 gm/dl (3.4-5.0); Bilirubin,Total 0.4 mg/dl (0.2-1.0); Calcium 7.7 mg/dl (8.6-10.3); Creatinine Clr Calc Pharmacy 13.1 ml/min; Globulin 2.7 gm/dl (2.5-4.0); Magnesium 1.2 mg/dl (1.7-2.4); Phosphorus 2.2 mg/dl (2.5-4.9); Potassium 3.3 mmol/L (3.5-5.1); Total Protein 5.8 gm/dl (6.0-8.3)
[2024-09-18] MEDS: FERROUS SULFATE 325 MG TAB PO SCH (08:39)
[2024-09-18] MEDS: POTASSIUM CHLORIDE CRTAB 20 MEQ TABCR PO ONE (08:53)
[2024-09-18] MEDS: MAGNESIUM SULFATE / D5W 1 GM/100 ML BAG IV SCH (08:53)
[2024-09-18 09:25] LABS: Hep B Surface Ag with confirm Negative (Negative)
[2024-09-18 09:35] LABS: Hepatitis B Surface Ab Quant < 3.00 mIU/mL (>or=10mIU/mL Immune); Hepatitis B Surface Antibody Non-Immune
[2024-09-18] MEDS: POTASSIUM CHLORIDE CRTAB 20 MEQ TABCR PO STA (10:13)
--- NOTE | 2024-09-18 11:39 | Nephrology Progress Note ---
Date of Service September 18, 2024 Assessment & Plan (1) Acute renal failure: Plan: further improving Stage 3 nonoliguric CARMEN multifactorial in the setting of obstructive uropathy and ischemic ATN. h/o complicated UTI and possibly bacteremia, though OP cxs NGTD; no metformin since 09/05, so no likely role for it here. baseline creatinine 1.0-1.3. presenting creatinine OSH 09/15 9.6; 8.3 09/16; had emergent HD 09/16. today creatinine improved though rate of correction slower 3.7. -emergent dialysis as above on 09/16; none needed today but would not d/c catheter yet -cont strict I/O -bmp daily for now -continue to avoid IV contrast as able -no more IVF indicated >> believe this is post ATN diuresis -hypoxia improving but still lung crackles and cough >> low threshold to repeat CxR in AM if still abnormal Care coordinated with Dr Schaefer via TText regarding dialysis and dial catheter plans, medications including electrolyte supplements, follow up labs including at OSH; we are in agreement (2) Lactic acidosis: Plan: improving still severe but no longer life threatening anion gap metabolic acidosis . still slighlty tachypneic as she tries to compensate but no longer tiring out or looking on verge of potential intubation critical lactic acidosis w/ anion gap down to 31>>23 and bicarbonate 3>>16, pH from <7 yesterday and up to 7.34 last evening, and lactate 6.8 on presentation > 4.9 yesterday; k 3.2 today s/p emergent dialysis 09/16 to manage acidemia -ordered repeat lactate for tomorrow am labs >>>some hypomagnesemia >> ordered IV mag x 2 gm and started po mag high dose as well >>>also hypokalemia >> ordered 60 mEq total po today; also needed supplements yesterday > monitor for need for standing supplement >>ordered repeat K, mag for am >no dialysis needed today > will keep catheter for now and reeval in am >> may need another run if not optimizing w/ IVF tomorrow (3) Severe sepsis: Plan: complicated UTI in setting of impacted R stone, possible bacteremia as well/ blood cultures pending; also possible community acquired pneumonia component. [facility] cxs growing E coli on urine and blood cxs NGTD. -f/u pending cultures OSH > alerted hospitalist of need to do this -continue coverage w/ cefepime for UTI/CAP -urology help w/ source control appreciated; for OP f/u (4) Acute anemia: Plan: hgb 10 at OSH on 09/15; 8.8 here on arrival 09/16 and 7.8 today -monitor > some may be dilutional (5) Stone in renal pelvis: Plan: urology consultation recommended; nothing to do until acidemia improved (6) CKD (chronic kidney disease) stage 3, GFR 30-59 ml/min: Plan: underlying CKD3A, possibly progressive >> baseline creatinine had been 1 x years (GFR 58) as of 07/2023 but was 1.3 (GFR 46) April 2024; historically nonalbuminuric. -will call her baseline creatinine 1.3; monitor for recovery Admission and Anticipated Discharge Date Admission Date: September 16, 2024 Subjective 2.8 L UOP yesterday and 1.8 L negative on the day; still hoarse; still w/ cough productive of rust colored sputum. taking minimal po still little appetite. no sob, no n/v, no flank pain or edema. Review of Systems 2 Review of Systems: All systems reviewed & are unremarkable except as noted in Subjective Physical Exam 2 Constitutional: well developed, well nourished, average body habitus and cooperative; no acute distress (breathing much better) and no altered mental status Eyes: EOM intact bilaterally ENMT: Mouth: + dry oral mucous membranes (hoarse voice) Neck: no nuchal rigidity Respiratory: able to speak in complete sentences; no labored breathing and no cough Auscultation: + diminished lung sounds and + crackles (bibasilar) Cardiovascular: Rate/Rhythm: regular rate and regular rhythm Extremities: n o edema Gastrointestinal (Abdomen): Inspection/Auscultation: normal bowel sounds P ercussion/Palpation: abdomen soft; abdomen nontender Musculoskeletal: Extremities: strength 5/5 throughout Skin: no rashes, warm and dry (bone dry) Psychiatric: Orientation: oriented to person, oriented to place and cooperative Results & Data Vital Signs (Past 12 Hours) Vital Signs Temp Pulse Pulse Resp BP Pulse Ox O2 Del Method 09/18/24 09:00 Nasal Cannula 09/18/24 07:35 36.8 C 91 H 19 123/64 97 Nasal Cannula 09/18/24 05:50 83 09/18/24 05:00 36.7 C 89 16 115/64 96 Nasal Cannula 09/17/24 23:56 36.7 C 88 16 112/65 97 Nasal Cannula O2 Flow Rate 09/18/24 09:00 1 09/18/24 07:35 2.0 09/18/24 05:50 09/18/24 05:00 1 09/17/24 23:56 1 Laboratory Results 09/18/24 07:19 09/18/24 07:19
[2024-09-18] MEDS: MAGNESIUM CHLORIDE W/CALCIUM 64MG DELAYED REL TAB PO SCH (11:44)
--- NOTE | 2024-09-18 14:06 | Gastroenterology Progress Note ---
Date of Service September 18, 2024 Assessment & Plan (1) Acute anemia: Plan: She needs to have EGD at some point although I do not feel it is emergent now. Her hemoglobin is reasonably stable and she only had melenic stool today. When all involved feel she is strong enough will proceed Admission and Anticipated Discharge Date Admission Date: September 16, 2024 Subjective She looks better although she still feels weak. Hgb 7.8. Had her first BM today and she does say it is black Physical Exam Physical Exam: She still looks weak Results & Data Vital Signs (Past 12 Hours) Vital Signs Temp Pulse Pulse Resp BP Pulse Ox O2 Del Method 09/18/24 12:00 36.5 C 84 18 107/70 97 Nasal Cannula 09/18/24 09:00 Nasal Cannula 09/18/24 07:35 36.8 C 91 H 19 123/64 97 Nasal Cannula 09/18/24 05:50 83 09/18/24 05:00 36.7 C 89 16 115/64 96 Nasal Cannula O2 Flow Rate 09/18/24 12:00 2.0 09/18/24 09:00 1 09/18/24 07:35 2.0 09/18/24 05:50 09/18/24 05:00 1
--- NOTE | 2024-09-18 16:26 | Hospitalist Progress Note ---
Date of Service September 18, 2024 Assessment & Plan (1) CKD (chronic kidney disease) stage 3, GFR 30-59 ml/min: (2) Stone in renal pelvis: (3) Severe sepsis: (4) Lactic acidosis: Plan Pt is a 73yoF with PMHx significant for hypertension, hyperlipidemia, DM2 on oral medications, hypothyroidism, CKD (baseline creatinine 1.3), GERD, mood disorder who presented as a transfer from the outside hospital [facility] for nephrology services. Patient was found to be in septic shock with obstructive uropathy and severe metabolic acidosis requiring hemodialysis and admission to the ICU. Severe Sepsis Septic shock Obstructive Uropathy Possible Pneumonia Patient presenting with significant leukocytosis of 40,000 that has since downtrended Outside UA suggestive of infection per nursing staff, per [facility] urine culture grew pansensitive E. coli, blood cultures with no growth to date repeat UA and repeat Cx pending, No significant growth at this time Chest x-ray on admission here noting concern for pneumonia versus aspiration pneumonitis CT abdomen pelvis noted moderate right-sided hydronephrosis with obstructing 1.8 cm calculus of the ureteropelvic junction head CT and CT of the soft tissue neck also noting concern for mucosal thickening of maxillary sinus urology was consulted, appreciate recs -Patient's status post right stent placement on 09/16/2024 Patient was initially admitted to the ICU requiring pressor support. Has since been weaned off and downgraded Continue on IV Rocephin Given concern for aspiration as well as patient reported dysphagia for which CT of the soft tissue neck was ordered, speech consulted appreciate recs Continue to monitor Severe Metabolic Acidosis acute metabolic encephalopathy Patient with pH less than 7 on arrival, pCO2 of 17, bicarb of 4, anion gap of 32 Patient was tachypneic and lethargic Was admitted to the ICU and started on a bicarb drip Nephrology was consulted, appreciate recs - status post emergent dialysis on 09/16/2024 to help with acidemia - bicarb drip has since been discontinued holding home Lyrica at this time Continue to monitor Improving Possible GI Bleed Reportedly pt having melanocytic stools GI on board Stating on 09/18/24, she should have an EGD done Continue with PPI drip at this time Monitor H/H Transfuse as needed for hgb<7 Acute kidney injury on chronic kidney disease Creatinine of 8.31 on arrival Status post emergent dialysis on Creatinine has improved to 3.75-3.99 range today Hold nephrotoxic meds as able Nephrology consulted, appreciate recs Hyperkalemia-resolved Hypokalemia Hypomagnesemia Hypophosphatemia Patient initially with potassium of 5.8 on arrival Status post emergent dialysis on Potassium has since trended down to 3.2 Supplement electrolytes as needed Acute on chronic anemia Iron Deficiency Anemia Hemoglobin of 8.8 on arrival Has since down trended to 7.6, possible dilution component Iron studies noting iron deficiency anemia started on p.o. ferrous sulfate Transfuse for hemoglobin less than 7 Continue to monitor with a.m. labs DMII Patient with this history and noted hyperglycemia AM hemoglobin A1c Holding home metformin at this time Basal bolus per protocol continue to monitor CODE STATUS: Full code Diet: Full liquids at this time, advance as tolerated DVT prophylaxis: SCDs at this time in setting of anemia Dispo: PT OT for further recs Admission and Anticipated Discharge Date Admission Date: September 16, 2024 Subjective patient was seen laying in bed resting comfortably States that her diet is being advanced and she is to get noodles today reportedly also having melanocytic stools Review of Systems Review of Systems: All systems reviewed & are unremarkable except as noted in Subjective Physical Exam Physical Exam: General: Alert, orientedx3. Psych: Appropriate mood and affect HEENT: NC/AT CV: RRR Resp: Breath sounds with crackles at the bases bilaterally Abdomen:Soft, tender in lower quadrants Extremities:boots on lower extremities bilaterally. Results & Data Results & Data Vital Signs (Past 12 Hours) Vital Signs Temp Pulse Pulse Resp BP Pulse Ox O2 Del Method 09/18/24 15:13 37.0 C 80 18 124/63 94 Room Air 09/18/24 13:05 87 09/18/24 12:00 36.5 C 84 18 107/70 97 Nasal Cannula 09/18/24 09:00 Nasal Cannula 09/18/24 07:35 36.8 C 91 H 19 123/64 97 Nasal Cannula 09/18/24 05:50 83 09/18/24 05:00 36.7 C 89 16 115/64 96 Nasal Cannula O2 Flow Rate 09/18/24 15:13 09/18/24 13:05 09/18/24 12:00 2.0 09/18/24 09:00 1 09/18/24 07:35 2.0 09/18/24 05:50 09/18/24 05:00 1
[2024-09-19 06:21] LABS: Basophils # (auto) 0.07 K/uL (0.00-0.20); Basophils % (auto) 0.9 %; Eosinophils # (auto) 0.47 K/uL (0.00-0.50); Eosinophils % (auto) 5.7 %; Hematocrit (blood only) 25.7 % (37.0-47.0); Hemoglobin 8.1 g/dl (12.0-16.0); Immature Granulocytes # (auto) 0.04 K/uL (0.01-0.20); Immature Granulocytes % (auto) 0.5 %; Lymphocytes % (auto) 14.6 %; Mean Corpuscular Hemoglobin 25.2 pg (25.0-34.0); Mean Corpuscular Hgb Conc 31.5 g/dL (32.0-36.0); Mean Corpuscular Volume 79.8 fL (80.0-100.0); Mean Platelet Volume 9.9 fL (9.4-12.4); Monocytes # (auto) 0.64 K/uL (0.11-0.59); Monocytes % (auto) 7.8 %; Neutrophils # (auto) 5.79 K/uL (1.40-6.50); Neutrophils % (auto) 70.5 %; Platelet Count 252 K/uL (130-400); RDW Coefficient of Variation 17.5 % (11.5-14.5); Red Blood Count 3.22 M/uL (4.20-5.40); White Blood Count 8.21 K/ul (4.8-10.8)
[2024-09-19 06:43] LABS: Albumin Level 3.1 gm/dl (3.4-5.0); BUN Creatinine Ratio 10.6 (10-20); Bilirubin,Total 0.4 mg/dl (0.2-1.0); Calcium 8.2 mg/dl (8.6-10.3); Creatinine Clr Calc Pharmacy 17.7 ml/min; Globulin 3.1 gm/dl (2.5-4.0); Magnesium 1.7 mg/dl (1.7-2.4); Phosphorus 2.5 mg/dl (2.5-4.9); Potassium 3.3 mmol/L (3.5-5.1); Total Protein 6.2 gm/dl (6.0-8.3)
[2024-09-19] MEDS: MAGNESIUM SULFATE / D5W 1 GM/100 ML BAG IV ONE (07:50)
[2024-09-19] MEDS: POTASSIUM CHLORIDE CRTAB 20 MEQ TABCR PO STA (07:50)
[2024-09-19] MEDS: POTASSIUM CHLORIDE CRTAB 20 MEQ TABCR PO ONE (10:04)
--- NOTE | 2024-09-19 10:12 | Nephrology Progress Note ---
Date of Service September 19, 2024 Assessment & Plan (1) Acute renal failure: Plan: further improving Stage 3 nonoliguric CARMEN multifactorial in the setting of obstructive uropathy and ischemic ATN. h/o complicated UTI w/ pansensitive E coli and blood cxs OSH as of 09/18 NGTD; no metformin since 09/05, so no likely role for it here. baseline creatinine 1.0-1.3. presenting creatinine OSH 09/15 9.6; 8.3 09/16; had emergent HD 09/16. today creatinine improved markedly to 2.7. -emergent dialysis as above on 09/16 >>>remove both dialysis and jeffers catheters; no further dialysis needs and strict I/o not needed -bmp daily for now -continue to avoid IV contrast as able -stopped dialysis diet -no more IVF indicated >> this is post ATN/post obstructive diuresis -hypoxia improving but still lung crackles and cough >> low threshold to repeat CxR in AM if still abnormal; suggest ISS Care coordinated with Dr Schaefer via TText regarding dialysis and dial catheter plans, medications including electrolyte supplements, follow up labs including at OSH; we are in agreement (2) Lactic acidosis: Plan: improving still severe but no longer life threatening anion gap metabolic acidosis . still slighlty tachypneic as she tries to compensate but no longer tiring out or looking on verge of potential intubation critical lactic acidosis w/ anion gap down to 31>>23 and bicarbonate 3>>16, pH from <7 yesterday and up to 7.34 last evening, and lactate 6.8 on presentation > 4.9 yesterday; k 3.2 today s/p emergent dialysis 09/16 to manage acidemia -hypomagnesemia and hypophosphatemia are resolved >> continue mag supplement bid for mag 1.7 >>note orders for repeat K, mag for am (3) Severe sepsis: Plan: complicated alvarez sensitive E coli UTI in setting of impacted R stone, so far no bacteremia ; also possible community acquired pneumonia component. [facility] [address] cxs growing E coli on urine and blood cxs NGTD. -f/u pending cultures OSH > by tomorrow AM will be 72 hrs -continue coverage w/ cefepime > ceftriaxone for UTI/CAP -urology help w/ source control appreciated; for OP f/u (4) Acute anemia: Plan: hgb 10 at OSH on 09/15; 8.8 here on arrival 09/16 and 7.8 > 8.1 today -monitor > some may be dilutional (5) Stone in renal pelvis: Plan: urology to f/u as OP (6) CKD (chronic kidney disease) stage 3, GFR 30-59 ml/min: Plan: underlying CKD3A, possibly progressive >> baseline creatinine had been 1 x years (GFR 58) as of 07/2023 but was 1.3 (GFR 46) April 2024; historically nonalbuminuric. -will call her baseline creatinine 1.3; monitor for recovery Admission and Anticipated Discharge Date Admission Date: September 16, 2024 Subjective no acute interval events clnically. still w/ dry cough; feels a bit better; no sob, no flank pain no gross hematuria; no n/v/d Review of Systems 2 Review of Systems: All systems reviewed & are unremarkable except as noted in Subjective Physical Exam 2 Constitutional: well developed, well nourished, average body habitus, + frail appearing and cooperative; no acute distress (breathing much better) and no altered mental status Eyes: EOM intact bilaterally ENMT: Mouth: + dry oral mucous membranes (hoarse voice) Respiratory: able to speak in complete sentences; no respiratory distress, no labored breathing, no cough, expiratory phase not prolonged and no audible wheezes Auscultation: + diminished lung sounds and + crackles (bibasilar) Cardiovascular: Rate/Rhythm: regular rate and regular rhythm Extremities: n o edema Gastrointestinal (Abdomen): Inspection/Auscultation: normal bowel sounds P ercussion/Palpation: abdomen soft; abdomen nontender Musculoskeletal: Extremities: strength 5/5 throughout Skin: no rashes, warm and dry (bone dry) Psychiatric: Orientation: oriented to person, oriented to place and cooperative Results & Data Vital Signs (Past 12 Hours) Vital Signs Temp Pulse Pulse Pulse Resp BP Pulse Ox 09/19/24 07:31 36.8 C 73 18 138/67 94 09/19/24 06:15 65 09/19/24 02:29 36.5 C 76 18 120/68 94 09/18/24 22:38 36.8 C 78 18 124/70 95 09/18/24 22:12 75 O2 Del Method 09/19/24 07:31 Room Air 09/19/24 06:15 09/19/24 02:29 Room Air 09/18/24 22:38 Room Air 09/18/24 22:12 Laboratory Results 09/19/24 06:02 09/19/24 06:02
--- NOTE | 2024-09-19 12:22 | Hospitalist Progress Note ---
Date of Service September 19, 2024 Assessment & Plan (1) CKD (chronic kidney disease) stage 3, GFR 30-59 ml/min: (2) Stone in renal pelvis: (3) Severe sepsis: (4) Lactic acidosis: Plan Pt is a 73yoF with PMHx significant for hypertension, hyperlipidemia, DM2 on oral medications, hypothyroidism, CKD (baseline creatinine 1.3), GERD, mood disorder who presented as a transfer from the outside hospital [facility] for nephrology services. Patient was found to be in septic shock with obstructive uropathy and severe metabolic acidosis requiring hemodialysis and admission to the ICU. Severe Sepsis Septic shock Obstructive Uropathy Possible Pneumonia Patient presenting with significant leukocytosis of 40,000 that has since downtrended Outside UA suggestive of infection per nursing staff, per [facility] urine culture grew pansensitive E. coli, blood cultures with no growth to date repeat UA and repeat Cx pending, No significant growth at this time Chest x-ray on admission here noting concern for pneumonia versus aspiration pneumonitis CT abdomen pelvis noted moderate right-sided hydronephrosis with obstructing 1.8 cm calculus of the ureteropelvic junction head CT and CT of the soft tissue neck also noting concern for mucosal thickening of maxillary sinus urology was consulted, appreciate recs -Patient's status post right stent placement on 09/16/2024 Patient was initially admitted to the ICU requiring pressor support. Has since been weaned off and downgraded Continue on IV Rocephin, consider transitioning to po cefdinir to complete at least 10 days of treatment Given concern for aspiration as well as patient reported dysphagia for which CT of the soft tissue neck was ordered, speech consulted appreciate recs Continue to monitor Improving 09/19/24- jeffers removed. Severe Metabolic Acidosis acute metabolic encephalopathy Patient with pH less than 7 on arrival, pCO2 of 17, bicarb of 4, anion gap of 32 Patient was tachypneic and lethargic Was admitted to the ICU and started on a bicarb drip Nephrology was consulted, appreciate recs - status post emergent dialysis on 09/16/2024 to help with acidemia - bicarb drip has since been discontinued -jeffers removed and anticipating discharge on 09/19 holding home Lyrica at this time Continue to monitor Improving Possible GI Bleed Reportedly pt having melanocytic stools GI on board Stating on 09/18/24, she should have an EGD done Continue with PPI drip at this time Monitor H/H Transfuse as needed for hgb<7 Acute kidney injury on chronic kidney disease Creatinine of 8.31 on arrival Status post emergent dialysis on Creatinine has improved to 3.75-3.99 range today Hold nephrotoxic meds as able Nephrology consulted, appreciate recs Improving- Hyperkalemia-resolved Hypokalemia Hypomagnesemia Hypophosphatemia Patient initially with potassium of 5.8 on arrival Status post emergent dialysis on Potassium has since trended down to 3.2 Supplement electrolytes as needed Acute on chronic anemia Iron Deficiency Anemia Hemoglobin of 8.8 on arrival Has since down trended to 7.6, possible dilution component Iron studies noting iron deficiency anemia started on p.o. ferrous sulfate Transfuse for hemoglobin less than 7 Continue to monitor with a.m. labs DMII Patient with this history and noted hyperglycemia AM hemoglobin A1c Holding home metformin at this time Basal bolus per protocol continue to monitor CODE STATUS: Full code Diet:DMII DVT prophylaxis: SCDs at this time in setting of anemia Dispo: PT OT for further recs Admission and Anticipated Discharge Date Admission Date: September 16, 2024 Subjective Patient was seen sitting in a chair beside her bed Has been up and ambulating with physical therapy Discussion with nephrology that Jeffers can be removed Per nephrology anticipating discharge tomorrow Review of Systems Review of Systems: All systems reviewed & are unremarkable except as noted in Subjective Physical Exam Physical Exam: General: Alert, orientedx3. Psych: Appropriate mood and affect HEENT: NC/AT CV: RRR Resp: Breath sounds with crackles at the bases bilaterally Abdomen:Soft, tender in lower quadrants Extremities:boots on lower extremities bilaterally. Results & Data Results & Data Vital Signs (Past 12 Hours) Vital Signs Temp Pulse Pulse Pulse Resp BP Pulse Ox 09/19/24 07:31 36.8 C 73 18 138/67 94 09/19/24 06:15 65 09/19/24 02:29 36.5 C 76 18 120/68 94 O2 Del Method 09/19/24 07:31 Room Air 09/19/24 06:15 09/19/24 02:29 Room Air
--- NOTE | 2024-09-19 16:16 | Gastroenterology Progress Note ---
Date of Service September 19, 2024 Assessment & Plan (1) Acute anemia: Plan: After much thinking and discussing, since H/H are stable and she is not passing black stools I think it may be best to hold on EGD so as not to risk setting her back. She agrees with this but I told her I will keep following and can step in with EGD at any time if deemed necessary. Admission and Anticipated Discharge Date Admission Date: September 16, 2024 Subjective Feeling better, getting stronger. No bleeding. Hemoglobin stable Physical Exam Physical Exam: She looks very well Results & Data Vital Signs (Past 12 Hours) Vital Signs Temp Pulse Pulse Resp BP Pulse Ox O2 Del Method 09/19/24 15:51 36.7 C 78 18 124/73 93 Room Air 09/19/24 12:33 36.6 C 85 18 105/63 98 Room Air 09/19/24 07:31 36.8 C 73 18 138/67 94 Room Air 09/19/24 06:15 65
[2024-09-19] MEDS: PANTOprazole 40 MG TAB PO SCH (20:58)
[2024-09-20 06:35] LABS: Basophils % (auto) 1.4 %; Eosinophils # (auto) 0.51 K/uL (0.00-0.50); Eosinophils % (auto) 6.9 %; Hemoglobin 8.7 g/dl (12.0-16.0); Immature Granulocytes # (auto) 0.06 K/uL (0.01-0.20); Immature Granulocytes % (auto) 0.8 %; Lymphocytes # (auto) 1.37 K/uL (1.20-3.40); Lymphocytes % (auto) 18.6 %; Mean Corpuscular Hemoglobin 25.5 pg (25.0-34.0); Mean Corpuscular Hgb Conc 31.1 g/dL (32.0-36.0); Mean Corpuscular Volume 82.1 fL (80.0-100.0); Mean Platelet Volume 9.5 fL (9.4-12.4); Monocytes # (auto) 0.64 K/uL (0.11-0.59); Monocytes % (auto) 8.7 %; Neutrophils # (auto) 4.67 K/uL (1.40-6.50); Neutrophils % (auto) 63.6 %; Platelet Count 255 K/uL (130-400); RDW Coefficient of Variation 17.8 % (11.5-14.5); RDW Standard Deviation 51.8 fL (36.4-46.3); Red Blood Count 3.41 M/uL (4.20-5.40); White Blood Count 7.35 K/ul (4.8-10.8)
[2024-09-20 06:50] LABS: Adenovirus F 40/41 PCR Not Detected (NotDetected); Astrovirus PCR Not Detected (NotDetected); Campylobacter PCR Not Detected (NotDetected); Cryptosporidium PCR Not Detected (NotDetected); Cyclospora cayetanensis PCR Not Detected (NotDetected); Entamoeba histolytica PCR Not Detected (NotDetected); Enteroaggregative E.coli(EAEC) Not Detected (NotDetected); Enteropathogenic E.coli (EPEC) Not Detected (NotDetected); Enterotoxigenic E.coli (ETEC) Not Detected (NotDetected); Giardia lamblia PCR Not Detected (NotDetected); Norovirus GI/GII PCR Not Detected (NotDetected); Plesiomonas shigelloides PCR Not Detected (NotDetected); Rotavirus A PCR Not Detected (NotDetected); Salmonella PCR Not Detected (NotDetected); Sapovirus PCR Not Detected (NotDetected); Shiga-like Toxin E.coli (STEC) Not Detected (NotDetected); Shigella/Enteroinvasive E.coli Not Detected (NotDetected); Vibrio cholerae PCR Not Detected (NotDetected); Vibrio species PCR Not Detected (NotDetected); Yersinia enterocolitica PCR Not Detected (NotDetected)
[2024-09-20 07:00] LABS: Albumin Level 3.2 gm/dl (3.4-5.0); BUN Creatinine Ratio 13.8 (10-20); Bilirubin,Total 0.3 mg/dl (0.2-1.0); Calcium 8.7 mg/dl (8.6-10.3); Creatinine Clr Calc Pharmacy 24.8 ml/min; Globulin 3.1 gm/dl (2.5-4.0); Magnesium 1.9 mg/dl (1.7-2.4); Phosphorus 2.8 mg/dl (2.5-4.9); Potassium 3.9 mmol/L (3.5-5.1); Total Protein 6.3 gm/dl (6.0-8.3)
--- NOTE | 2024-09-20 12:39 | Gastroenterology Progress Note ---
Date of Service September 20, 2024 Assessment & Plan (1) Hematemesis: Plan: Bleeding seems to have stopped. She is getting stronger. I suggested to her perhaps to pursue elective EGD after she is over all of this and back to normal to rule out anything of significance. Will sign off for now. Please call if services needed again. Admission and Anticipated Discharge Date Admission Date: September 16, 2024 Subjective Looks and feels well. Hemoglobin is climbing Physical Exam Physical Exam: She looks much stronger today Results & Data Vital Signs (Past 12 Hours) Vital Signs Temp Pulse Pulse Resp BP Pulse Ox O2 Del Method 09/20/24 11:10 36.4 C L 81 20 135/74 97 Room Air 09/20/24 08:00 Room Air 09/20/24 07:36 36.6 C 87 17 123/71 96 Room Air 09/20/24 02:35 36.8 C 73 18 124/70 94 Room Air
--- NOTE | 2024-09-20 13:14 | Nephrology Progress Note ---
Date of Service September 20, 2024 Assessment & Plan (1) Acute renal failure: Plan: further improving Stage 3 nonoliguric CARMEN multifactorial in the setting of obstructive uropathy and ischemic ATN. h/o complicated UTI w/ pansensitive E coli and blood cxs OSH as of 09/18 NGTD; no metformin since 09/05, so no likely role for it here. baseline creatinine 1.0-1.3. presenting creatinine OSH 09/15 9.6; 8.3 09/16; had emergent HD 09/16. today creatinine improved markedly to 2. -emergent dialysis as above on 09/16 -jeffers and dialysis caths both removed 09/19 -bmp daily for now -continue to avoid IV contrast as able will sign off NEPH D/C RECS -hold off on resuming hctz, metformin until after d/c -continue mag supplements at d/c -no nsaids after d/c -needs to drink 80-100 oz fluids daily after d/c, most of which should be water -follow low sodium diet -check BMP, hgb, transferrin sat at hospital d/c visit w/ PCP w/in a week of hospital d/c -hospital d/c visit w/ me in [facility] in 3-4 wks to f/u Stage 3 CARMEN needing dialysis and metabolic w/u for kidney stones; pt to bring home bp cuff to visit if she has one; check bmp, acr, uacm, hgb, PTH, 25 OH D, mag; she should also do urorisk 24 hr urine collection at least a week before OV; nephro nurse to order all of above tests -follow up with [facility] urology per their recs -f/u blood cultures from 09/16 at OSH>if not finalized before d/c, ask PCP to f/u Care coordinated with Dr Cruz in person and via TText regarding meds, fluid/sodium intake, f/u labs/appts, follow up labs including at OSH; we are in agreement (2) Lactic acidosis: Plan: improving still severe but no longer life threatening anion gap metabolic acidosis . still slighlty tachypneic as she tries to compensate but no longer tiring out or looking on verge of potential intubation critical lactic acidosis w/ anion gap down to 31>>23 and bicarbonate 3>>16, pH from <7 yesterday and up to 7.34 last evening, and lactate 6.8 on presentation > 4.9 yesterday; k 3.2 today s/p emergent dialysis 09/16 to manage acidemia -hypomagnesemia and hypophosphatemia are resolved >> continue mag supplement bid for mag 1.9 (3) Severe sepsis: Plan: complicated alvarez sensitive E coli UTI in setting of impacted R stone, so far no bacteremia ; also possible community acquired pneumonia component. [facility] cxs growing E coli on urine and blood cxs NGTD. -f/u pending cultures OSH (reading from this am reviewed and only a 48 hr update) -continue coverage w/ cefepime > ceftriaxone for UTI/CAP -urology help w/ source control appreciated; for OP f/u (4) Acute anemia: Plan: hgb 10 at OSH on 09/15; 8.8 here on arrival 09/16 and 7.8 > 8.1 > 8.7 today -monitor > some may be dilutional and improving w/ autodiuresis after ATN (5) Stone in renal pelvis: Plan: urology to f/u as OP (6) CKD (chronic kidney disease) stage 3, GFR 30-59 ml/min: Plan: underlying CKD3A, possibly progressive >> baseline creatinine had been 1 x years (GFR 58) as of 07/2023 but was 1.3 (GFR 46) April 2024; historically nonalbuminuric. -will call her baseline creatinine 1.3; monitor for recovery Admission and Anticipated Discharge Date Admission Date: September 16, 2024 Subjective voiding w/o issue. tolerating po no further emesis. ? of Vtach run 1-2 nights back; no sob or flank pain Review of Systems 2 Review of Systems: All systems reviewed & are unremarkable except as noted in Subjective Physical Exam 2 Constitutional: well developed, well nourished, average body habitus and cooperative; no acute distress (breathing much better) and no altered mental status Eyes: EOM intact bilaterally ENMT: Mouth: + dry oral mucous membranes (hoarse voice) Respiratory: able to speak in complete sentences; no respiratory distress, no labored breathing, no cough, expiratory phase not prolonged and no audible wheezes Auscultation: lungs clear to auscultation bilaterally Cardiovascular: Rate/Rhythm: regular rate and regular rhythm Extremities: n o edema Gastrointestinal (Abdomen): Inspection/Auscultation: normal bowel sounds P ercussion/Palpation: abdomen soft; abdomen nontender Musculoskeletal: Extremities: strength 5/5 throughout Skin: no rashes, warm and dry (bone dry) Psychiatric: Orientation: oriented to person, oriented to place and cooperative Results & Data Vital Signs (Past 12 Hours) Vital Signs Temp Pulse Pulse Resp BP Pulse Ox O2 Del Method 09/20/24 11:10 36.4 C L 81 20 135/74 97 Room Air 09/20/24 08:00 Room Air 09/20/24 07:36 36.6 C 87 17 123/71 96 Room Air 09/20/24 02:35 36.8 C 73 18 124/70 94 Room Air Laboratory Results 09/20/24 06:19 09/20/24 06:19
--- NOTE | 2024-09-21 04:10 | Hospitalist Progress Note ---
Date of Service September 20, 2024 Assessment & Plan (1) CKD (chronic kidney disease) stage 3, GFR 30-59 ml/min: (2) Stone in renal pelvis: (3) Severe sepsis: (4) Lactic acidosis: Plan Pt is a 73yoF with PMHx significant for hypertension, hyperlipidemia, DM2 on oral medications, hypothyroidism, CKD (baseline creatinine 1.3), GERD, mood disorder who presented as a transfer from the outside hospital [facility] for nephrology services. Patient was found to be in septic shock with obstructive uropathy and severe metabolic acidosis requiring hemodialysis and admission to the ICU. Severe Sepsis Septic shock Obstructive Uropathy Possible Pneumonia Patient presenting with significant leukocytosis of 40,000 that has since downtrended Outside suggestive of infection per nursing staff, per [facility] ER urine culture grew pansensitive E. coli, blood cultures with no growth to date repeat Urine cultx - negative Chest x-ray on admission here noting concern for pneumonia versus aspiration pneumonitis CT abdomen pelvis noted moderate right-sided hydronephrosis with obstructing 1.8 cm calculus of the ureteropelvic junction head CT and CT of the soft tissue neck also noting concern for mucosal thickening of maxillary sinus Urology was consulted, appreciate recs -Patient's status post right stent placement on 09/16/2024 - Follow up w/ u rology as outpt for definitive stone treatment Patient was initially admitted to the ICU requiring pressor support. Has since been weaned off and downgraded Continue on IV Rocephin, consider transitioning to PO cefdinir to complete at least 10 days of treatment Given concern for aspiration as well as patient reported dysphagia for which CT of the soft tissue neck was ordered, speech consulted appreciate recs Continue to monitor Improving 09/19/24- jeffers removed. Pt is voiding w/o difficulty Severe Metabolic Acidosis acute metabolic encephalopathy Patient with pH less than 7 on arrival, pCO2 of 17, bicarb of 4, anion gap of 32 Patient was tachypneic and lethargic Was admitted to the ICU and started on a bicarb drip Nephrology was consulted, appreciate recs - status post emergent dialysis on 09/16/2024 to help with acidemia - bicarb drip has since been discontinued -jeffers removed and anticipating discharge on 09/19 holding home Lyrica at this time Continue to monitor Improving Possible GI Bleed Reportedly pt having stools w/ melena GI consulted Stating on 09/18/24, she should have an EGD done Continue with PPI drip at this time Monitor H/H Transfuse as needed for hgb<7 PPI drip stopped, changed to PO PPI, follow up w/ GI as outpt Acute kidney injury on chronic kidney disease Creatinine of 8.31 on arrival Status post emergent dialysis on 09/16/2024 Creatinine has improved to 2 Hold nephrotoxic meds as able Nephrology consulted, appreciate recs Improving- Hyperkalemia-resolved Hypokalemia Hypomagnesemia Hypophosphatemia Patient initially with potassium of 5.8 on arrival Status post emergent dialysis on Potassium has since trended down to 3.2 Supplement electrolytes as needed Acute on chronic anemia Iron Deficiency Anemia Hemoglobin of 8.8 on arrival Has since down trended to 7.6, possible dilution component Iron studies noting iron deficiency anemia started on p.o. ferrous sulfate Transfuse for hemoglobin less than 7 Continue to monitor with a.m. labs DMII Patient with this history and noted hyperglycemia Current hemoglobin A1c 7.0% Holding home metformin at this time Basal bolus per protocol continue to monitor CODE STATUS: Full code Diet:DMII DVT prophylaxis: SCDs at this time in setting of anemia Dispo: PT OT for further recs Admission and Anticipated Discharge Date Admission Date: September 16, 2024 Subjective Patient was seen sitting in a chair Jeffers was removed yesterday and pt says she has been voiding Overall feels better but weak Denies fever, chills, chest pain, shortness of breath, abd. pain, n/v Discussed w/ nephrology - pt improving, plan for DC in 24 hrs, close outpt monitoring Review of Systems Review of Systems: All systems reviewed & are unremarkable except as noted in Subjective Physical Exam Physical Exam: General: Alert, orientedx3. Psych: Appropriate mood and affect HEENT: NC/AT CV: RRR Resp: CTAB Abdomen:Soft, nontender to palpation Extremities: no LE edema, moves extremities Results & Data Results & Data Vital Signs (Past 12 Hours) Vital Signs Temp Pulse Pulse Resp BP Pulse Ox O2 Del Method 09/20/24 23:42 36.6 C 73 18 123/76 92 Room Air 09/20/24 20:19 36.7 C 86 18 136/77 95 Room Air 09/20/24 16:38 36.7 C 67 18 134/75 99 Room Air
[2024-09-21 07:45] VITALS: TEMP 98.4; O2SAT 98
[2024-09-21 08:03] LABS: Hematocrit (blood only) 27.5 % (37.0-47.0); Hemoglobin 8.4 g/dl (12.0-16.0); Mean Corpuscular Hemoglobin 25.2 pg (25.0-34.0); Mean Corpuscular Hgb Conc 30.5 g/dL (32.0-36.0); Mean Corpuscular Volume 82.6 fL (80.0-100.0); Mean Platelet Volume 10.1 fL (9.4-12.4); Platelet Count 285 K/uL (130-400); RDW Coefficient of Variation 17.6 % (11.5-14.5); RDW Standard Deviation 53.1 fL (36.4-46.3); Red Blood Count 3.33 M/uL (4.20-5.40); White Blood Count 7.65 K/ul (4.8-10.8)
[2024-09-21 08:18] LABS: BUN Creatinine Ratio 14.9 (10-20); Calcium 8.9 mg/dl (8.6-10.3); Magnesium 1.5 mg/dl (1.7-2.4); Phosphorus 2.7 mg/dl (2.5-4.9); Potassium 3.9 mmol/L (3.5-5.1)
[2024-09-21 11:00] VITALS: PULSE 81; RESP 18
[2024-09-21] MEDS: MAGNESIUM SULFATE / D5W 1 GM/100 ML BAG IV ONE (12:15)
--- NOTE | 2024-09-21 14:36 | Discharge Summary ---
Date of Service September 21, 2024 Admission HPI Per Admitting Provider History obtained from patient and records. Medical history significant for hypertension, hyperlipidemia, DM2 on oral medications, hypothyroidism, CRI (baseline creatinine 1.3), GERD, mood disorder. Patient not feeling well for about a week. Junky cough symptoms productive of yellow sputum. Patient denies chest pain. Sore throat with headache symptoms. Denies aspiration. was sick as well. Poor appetite later followed by watery diarrhea. Subsequent achy abdominal pain with coffee-ground emesis and melena noted yesterday. Denies inordinate Patient seen at [facility] ER yesterday. Abnormal labs noted: WBC, 19, hemoglobin noted to be 10, serum creatinine 9.5, potassium 5.2, anion gap 39, lactic acid 8 COVID and flu swabs were negative. Chest x-ray showed left lung patchy opacification. UA WBC esterase positive, nitrate negative Blood cultures obtained. Patient given ceftriaxone at the ER for possible pneumonia/UTI as per ED provider.. Patient also received Lokelma for hyperkalemia. Repeat serum creatinine after multiple fluid boluses was 8.8 as per ED provider. Patient transferred to [facility] for Nephrology services. Medical History as above Surgical History : Knee surgery, shoulder surgery, BTL Family History : Heart disease, DM Personal/Social history : non-smoker, occasional EtOH intake Admission Exam Per Admitting Provider GENERAL: Ill-appearing, lethargic, mild dysarthria, no respiratory distress SKIN: Pallor, cool HEENT: Pale palpebral conjunctivae, no ptosis, dry buccal mucosa NECK : Supple, no tenderness CHEST : Decreased breath sounds, no tenderness HEART : RRR, no obvious murmurs ABDOMEN: Some distention, minimal central abdominal tenderness EXTREMITIES : No LE swelling/tenderness, no other conspicuous deformities noted NEUROLOGIC : Lethargic, no facial asymmetry, mild dysarthria, gait and stance not assessed Principal Diagnosis Sepsis CARMEN Obstructive Uropathy Severe Metabolic Acidosis Acute Metabolic Encephalopathy Discharge Exam General: Alert, orientedx3. Psych: Appropriate mood and affect HEENT: NC/AT CV: RRR Resp: CTAB Abdomen:Soft, nontender to palpation Extremities: no LE edema, moves extremities Discharge Data Allergies Allergy/AdvReac Type Severity Reaction Status Date / Time Sulfa (Sulfonamide Allergy Unknown Unknown Verified 09/16/24 05:57 Antibiotics) Consultations 09/16/24 06:56 Consult Gastroenterology Routine 09/16/24 07:15 Consult Nephrology Routine 09/16/24 07:40 Consult Bag Washer Routine 09/16/24 16:33 Consult Urology Routine Procedures Performed Operation Date: 09/16/24 19:00 Actual Procedures p Cystoscopy, Right Retrograde Pyelogram, Insertion Right Ureteral Stent - Gregorio Davila MD Ordered Studies 09/16/24 FL retrograde includes kub Routine 09/16/24 06:44 CT Abd and Pelvis [CT abd pelvis wo con] Stat FINDINGS: Cardiomegaly with coronary artery calcifications. Partially imaged central venous catheter distal tip terminates in the superior aspect of the right atrium. Small pleural effusions with bibasilar mucous plugging, intralobular septal thickening and patchy groundglass and consolidative opacities. There is no pneumoperitoneum. The study is degraded by respiratory motion artifact. The unenhanced spleen, pancreas and adrenal glands are unremarkable. Possible cholelithiasis without CT evidence of acute cholecystitis. Hepatomegaly with hepatic steatosis. Unremarkable left kidney. Moderate right-sided hydronephrosis with an obstructing 1.8 x 1.3 x 1.7 cm calculus of the ureteropelvic junction. Reactive perinephric inflammatory stranding. Decompressed bladder with Jeffers catheter. Pelvic floor relaxation. Subcentimeter uterine calcification. Atherosclerosis of the aorta without aneurysm. No lymphadenopathy. Small hiatal hernia. No bowel stricture in or bowel wall thickening. Rectal catheter in place. Colonic diverticulosis. Normal appendix. 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 No acute fracture. IMPRESSION: 1. Moderate right-sided hydronephrosis secondary to an obstructing 1.8 cm calculus of the ureteropelvic junction. 2. Small pleural effusions with bibasilar opacities suggestive of pneumonia versus aspiration pneumonitis. 3. No bowel obstruction or bowel wall thickening. 4. Hepatic steatosis. 5. Colonic diverticulosis. 6. Additional findings as above. CT head/brain wo con Stat FINDINGS: No acute intracranial hemorrhage, midline shift, intracranial mass, hydrocephalus, territorial ischemia or abnormal extra-axial collection. Involutional changes with white matter hypodensities suggestive of chronic microvascular ischemic disease. The calvarium is intact. Partially imaged mucosal thickening of the inferior maxillary sinuses. The mastoid air cells are clear. Prior bilateral lens repair. IMPRESSION: No acute intracranial abnormality. CT neck soft tissues [CT soft tissue neck wo con] Stat FINDINGS: Right IJ dual-lumen hemodialysis catheter in place. Partially imaged polypoid mucosal thickening of the maxillary sinuses measuring up to 3 cm on the right. No acute inflammatory changes, fluid collections or lymphadenopathy. The glottis and subglottic airway appears unremarkable. No dominant thyroid nodule. No pneumothorax. No acute fracture. Degenerative changes of the cervical spine including severe disc space narrowing at C5-C6 and C6-C7 with multilevel neural foraminal narrowing. No acute intracranial abnormality. IMPRESSION: 1. Mildly motion degraded exam. No acute inflammatory changes or fluid collections. 2. Patent airway. 3. Partially imaged right IJ central venous catheter. 4. Polypoid mucosal thickening of the maxillary sinuses. 09/16/24 09:49 US point of care ultrasound Routine Hospital Course (1) CKD (chronic kidney disease) stage 3, GFR 30-59 ml/min: (2) Stone in renal pelvis: (3) Severe sepsis: (4) Lactic acidosis: Plan Pt is a 73yoF with PMHx significant for hypertension, hyperlipidemia, DM2 on oral medications, hypothyroidism, CKD (baseline creatinine 1.3), GERD, mood disorder who presented as a transfer from the outside hospital [facility] for nephrology services. Patient was found to be in septic shock with obstructive uropathy and severe metabolic acidosis requiring hemodialysis and admission to the ICU. Severe Sepsis Septic shock Obstructive Uropathy Possible Pneumonia Patient presenting with significant leukocytosis of 40,000 that has since downtrended Outside suggestive of infection per nursing staff, per [facility] ER urine culture grew pansensitive E. coli, blood cultures with no growth to date repeat Urine cultx - negative Chest x-ray on admission here noting concern for pneumonia versus aspiration pneumonitis CT abdomen pelvis noted moderate right-sided hydronephrosis with obstructing 1.8 cm calculus of the ureteropelvic junction head CT and CT of the soft tissue neck also noting concern for mucosal thickening of maxillary sinus Urology was consulted, appreciate recs -Patient's status post right stent placement on 09/16/2024 - Follow up w/ urology as outpt for definitive stone treatment Patient was initially admitted to the ICU requiring pressor support. Has since been weaned off and downgraded Continue on IV Rocephin, consider transitioning to PO cefdinir to complete at least 10 days of treatment Given concern for aspiration as well as patient reported dysphagia for which CT of the soft tissue neck was ordered, speech consulted appreciate recs Continue to monitor Improving 09/19/24- jeffers removed. Pt is voiding w/o difficulty Severe Metabolic Acidosis - resolved acute metabolic encephalopathy - resolved Patient with pH less than 7 on arrival, pCO2 of 17, bicarb of 4, anion gap of 32 Patient was tachypneic and lethargic Was admitted to the ICU and started on a bicarb drip Nephrology was consulted, appreciate recs - status post emergent dialysis on 09/16/2024 to help with acidemia - bicarb drip has since been discontinued -jeffers removed and anticipating discharge on 09/19 holding home Lyrica at this time Possible GI Bleed Reportedly pt having stools w/ melena GI consulted Stating on 09/18/24, she should have an EGD done Continue with PPI drip at this time Monitor H/H Transfuse as needed for hgb<7 PPI drip stopped, changed to PO PPI, follow up w/ GI as outpt Acute kidney injury on chronic kidney disease Creatinine of 8.3 on arrival Status post emergent dialysis on 09/16/2024 Creatinine has improved to 1.6 Hold nephrotoxic meds as able Nephrology consulted, appreciate recs NEPH D/C RECS -continue mag supplements at d/c -no nsaids after d/c -needs to drink 80-100 oz fluids daily after d/c, most of which should be water -follow low sodium diet -check BMP, hgb, transferrin sat at hospital d/c visit w/ PCP w/in a week of hospital d/c -hospital d/c visit w/ Dr. Faulkner in [facility] in 3-4 wks to f/u Stage 3 CARMEN needing dialysis and metabolic w/u for kidney stones; pt to bring home BP cuff to visit if she has one; check bmp, acr, uacm, hgb, PTH, 25 OH D, mag; she should also do urorisk 24 hr urine collection at least a week before OV; nephro nurse to order all of above tests -follow up with [facility] urology per their recs -f/u blood cultures from 09/16 at [facility] Hyperkalemia-resolved Hypokalemia Hypomagnesemia Hypophosphatemia Patient initially with potassium of 5.8 on arrival Status post emergent dialysis on 09/16/2024 Potassium has since trended down to 3.2 Supplement electrolytes as needed Acute on chronic anemia Iron Deficiency Anemia Hemoglobin of 8.8 on arrival Has since down trended to 7.6, possible dilution component Iron studies noting iron deficiency anemia started on p.o. ferrous sulfate Transfuse for hemoglobin less than 7 DMII Patient with this history and noted hyperglycemia Current hemoglobin A1c 7.0% Holding home metformin at this time Basal bolus per protocol continue to monitor Total Time Total Time Spent Total Time Spent (In Minutes): 40 Discharge Plan Discharge Items Patient Disposition: Home - Self-Care Reason For Visit: ACUTE RENAL FAILURE Discharge Diagnosis: Sepsis CARMEN Obstructive Uropathy Severe Metabolic Acidosis Acute Metabolic Encephalopathy Activity: Per Instructions section Non-emergency contact: Primary Care Provider and Urologist Call non-emergency contact if: you have any medication questions and your symptoms worsen Follow-up/Referrals: Prateek Kent MD [Outside Practitioners] - Timmy Meyer MD [Primary Care Provider] - (Date & Time 09/27/2024 11:00 AM Provider Timmy Meyer MD Department [facility] ) Diet: Carb Consistent or DM2 and Low Sodium (2gm) Addtl Attending Provider Instructions: Follow up with your primary care doctor, nephrology and urology. Finish antibiotic treatment as prescribed. You will need to obtain blood work within a week - at your primary care doctor appointment. Take pantoprazole as prescribed and follow up with Gastroenterology. Make sure to stay well hydrated and drink plenty of water. For now, do not take hydrochlorothiazide, discuss with your primary care doctor when you can resume it. Venlafaxine dose was decreased to 37.5 mg - discuss with your doctor about increasing it to the dose you were on prior to admission to the hospital. Take magnesium supplement as prescribed (this was recommended by nephrology). Pending Studies at Discharge: Yes Studies:: final blood cultx from [facility] Stand-Alone Forms: My [facility], Smoking Cessation Medications and DC Order Prescriptions: New cefuroxime axetil 250 mg tablet 250 mg PO BID 7 Days Qty: 14 0RF ferrous sulfate 325 mg (65 mg iron) Tablet,Delayed Release (Dr/Ec) 325 mg PO QAM Qty: 30 0RF pantoprazole 40 mg Tablet,Delayed Release (Dr/Ec) 40 mg PO BID Qty: 60 0RF venlafaxine 37.5 mg Capsule,Extended Release 24hr 37.5 mg PO DAILY Qty: 30 0RF Advanced Probiotic 625 mg (10 billion cell) Capsule 1 cap PO DAILY Qty: 10 0RF magnesium chloride [Mag 64] 64 mg Tablet,Delayed Release (Dr/Ec) 128 mg PO BID Qty: 60 0RF Continued atorvastatin 20 mg tablet 20 mg DAILY metformin 1,000 mg tablet 1,000 mg DAILY paroxetine HCl 10 mg tablet 10 mg PO DAILY Held hydrochlorothiazide 12.5 mg tablet 12.5 mg DAILY Hold Instructions: Resume on 09/28/24. discuss with your doctor about when to resume it pregabalin 100 mg capsule 100 mg AMHS Hold Instructions: Resume on 09/28/24. discuss with your doctor to see if / when to resume it Discontinued venlafaxine 150 mg capsule,extended release 24hr 150 mg PO DAILY Discharge Orders: Discharge Order (Routine); Ordered 09/21/24 Ordered By: Armond Nix/Other Patient Handouts: High Blood Sugar (Hyperglycemia), Hypoglycemia (Low Blood Sugar), Managing Type 2 Diabetes Admission Data Admit Date/Time: 09/16/24 05:02 Attending Provider: Armond Cruz Admit Provider: Vj Celis Primary Care Provider: Timmy Meyer Other Providers: Apple Ledezma; Jorge L Ramon; Yamel Reveles; Joan Lieberman; Alba Tran; Seble Tabares; Smitha Lawrence; Tesfaye Fitzpatrick; Codi Urias; Abhinav Anand; Saima Martin; Saniya Chong; Anna Riggins; Ciara Naik; Precious Gomez; Alhaji Muñiz; Jeancarlos Sanchez; Natasha Patino; Blu Mckeon Jr; Royal Aguilera; Jonh Nam; Jaden Leong; Wilder Bennett; Karla Short.; Connor Mares I; Susu Griffith; Kevin Brooks
[2024-09-21] MEDS: ADVANCED PROBIOTIC 625 MG CAPSULE PO SCH (14:45)
[2024-09-21 14:58] VITALS: BP 138/69
== END 2024-09-21 15:45 | disposition home health service (06) | DRG 853 ==
LOC: 2W 05:02 → SUATTDRO 05:02 → 1E 08:27 → 2E 09-17 17:52